=== PATIENT | male | born 1945 | race Caucasian/White ===

== ENCOUNTER 2017-08-24 20:26 | Emergency (ER) | payer MEDICARE, OTHER ==
[2017-08-24] MEDS ORDERED: Aspirin 81 MG Tab.Chew PO ONE (20:40)
[2017-08-24] MEDS ORDERED: Sodium Chloride 0.9% 10 ML Syringe FLUSH PRN (20:40)
[2017-08-24] MEDS ORDERED: Albuterol/Ipratropium 3.0-0.5 MG/3 ML Neb Soln NEB ONE (21:12)
--- NOTE | 2017-08-24 23:02 | EDM.PDOC ---
ED HPI GENERAL MEDICAL PROBLEM - General Chief Complaint: Chest Pain Stated Complaint: CHEST PAIN Time Seen by Provider: 08/24/17 20:35 Source of Information: Reports: Patient History Limitations: Reports: No Limitations - History of Present Illness INITIAL COMMENTS - FREE TEXT/NARRATIVE: The patient was at [employer] for a beer and he developed heaviness while he was sitting there. He has some shortness of breath with it. He says the pain is much better now. He has no fever, chills, cough, congestion, abdominal pain, nausea or vomiting. He has no CAD. He has a history of HTN. He quit smoking about 21 years ago but recently he has been smoking a few cigarettes and vaping. He did not take any aspirin before arrival. Onset: Sudden Duration: Minutes: (30) Location: Reports: Chest Quality: Reports: Other (Heaviness) Severity: Moderate (Better now) Improves with: Reports: None Worsens with: Reports: None Associated Symptoms: Reports: Chest Pain, Shortness of Breath. Denies: Cough, Fever/Chills, Headaches, Nausea/Vomiting Chest Pain Score (Numeric/FACES): 5 - Related Data Allergies Allergy/AdvReac Type Severity Reaction Status Date / Time No Known Allergies Allergy Verified 08/24/17 20:32 Home Meds: Home Meds . [Unable to Verify Home Med List] 01/22/16 [History] Past Medical History Cardiovascular History: Reports: Hypertension Neurological History: Reports: Other (See Below) Other Neuro History: traumatic brain bleed - Past Surgical History Musculoskeletal Surgical History: Reports: Other (See Below) Other Musculoskeletal Surgeries/Procedures:: neck and back surgery Social & Family History - Tobacco Use Smoking Status *Q: Current Status Unknown ED ROS GENERAL - Review of Systems Review Of Systems: See Below Constitutional: Reports: No Symptoms HEENT: Reports: No Symptoms Respiratory: Reports: Shortness of Breath Cardiovascular: Reports: Chest Pain Endocrine: Reports: No Symptoms GI/Abdominal: Reports: No Symptoms : Reports: No Symptoms Musculoskeletal: Reports: No Symptoms ED EXAM, GENERAL - Physical Exam Exam: See Below Exam Limited By: No Limitations General Appearance: Alert, No Apparent Distress Ears: Normal External Exam Nose: Normal Inspection Head: Atraumatic, Normocephalic Neck: Normal Inspection Respiratory/Chest: No Respiratory Distress, Wheezing (Moderate) Cardiovascular: Regular Rate, Rhythm, No Edema, No Murmur GI/Abdominal: Soft, Non-Tender, No Organomegaly, No Mass Back Exam: Normal Inspection Extremities: Normal Inspection Neurological: Alert, Oriented, No Motor/Sensory Deficits Skin Exam: Warm EKG INTERPRETATION EKG Date: 08/24/17 Time: 20:32 Rhythm: NSR Rate (Beats/Min): 94 [place]: Normal P-Wave: Present QRS: Normal ST-T: Normal QT: Normal EKG Interpretation Comments: Q waves in the inferior leads Course - Vital Signs Last Recorded V/S: Last Vital Signs Temp 98.0 F 08/24/17 20:32 Pulse 80 08/24/17 21:33 Resp 20 08/24/17 20:32 BP 186/93 H 08/24/17 20:32 Pulse Ox 98 08/24/17 20:32 - Orders/Labs/Meds Orders: Active Orders 24 hr Category Date Time Status Cardiac Monitoring [RC] . DIRECTED Care 08/24/17 20:40 Active EKG Documentation Completion [RC] ASDIRECTED Care 08/24/17 23:07 Active EKG Documentation Completion [RC] STAT Care 08/24/17 20:40 Active Oxygen Therapy [RC] PRN Care 08/24/17 20:40 Active Peripheral IV Care [RC] . DIRECTED Care 08/24/17 20:40 Active RT Aerosol Therapy [RC] ASDIRECTED Care 08/24/17 21:12 Active Chest 1V Frontal [CR] Stat Exams 08/24/17 20:40 Taken Sodium Chloride 0.9% [Saline Flush] Med 08/24/17 20:40 Active 10 ml FLUSH ASDIRECTED PRN Peripheral IV Insertion Adult [OM.PC] Stat Oth 08/24/17 20:40 Ordered EKG 12 Lead [EK] Stat Ther 08/24/17 23:07 Ordered Medication Orders Sodium Chloride (Saline Flush) 10 ml FLUSH ASDIRECTED PRN PRN Reason: Keep Vein Open Last Admin: 08/24/17 20:47 Dose: 10 ml Labs: Laboratory Tests 08/24/17 08/24/17 08/24/17 Range/Units 20:32 20:32 20:32 WBC 6.79 (4.23-9.07) K/mm3 RBC 4.45 L (4.63-6.08) M/mm3 Hgb 12.8 L (13.7-17.5) gm/L Hct 39.5 L (40.1-51.0) % MCV 88.8 (79.0-92.2) fl MCH 28.8 (25.7-32.2) pg MCHC 32.4 (32.2-35.5) g/dl RDW Std Deviation 49.8 H (35.1-43.9) fL Plt Count 192 (163-337) K/mm3 MPV 11.8 (9.4-12.3) fl Neut % (Auto) 69.1 H (34.0-67.9) % Lymph % (Auto) 20.0 L (21.8-53.1) % [place] % (Auto) 9.0 (5.3-12.2) % Eos % (Auto) 1.2 (0.8-7.0) Baso % (Auto) 0.6 (0.1-1.2) % Neut # (Auto) 4.69 (1.78-5.38) K/mm3 Lymph # (Auto) 1.36 (1.32-3.57) K/mm3 [place] # (Auto) 0.61 (0.30-0.82) K/mm3 Eos # (Auto) 0.08 (0.04-0.54) K/mm3 Baso # (Auto) 0.04 (0.01-0.08) K/mm3 D-Dimer, Quantitative 0.39 (0.19-0.59) mg/L Sodium 146 H (136-145) mEq/L Potassium 3.2 L (3.5-5.1) mEq/L Chloride 110 H (98-107) mEq/L Carbon Dioxide 23 (21-32) mEq/L Anion Gap 16.2 H (5-15) BUN 19 H (7-18) mg/dL Creatinine 1.4 H (0.7-1.3) mg/dL Est Cr Clr Drug Dosing 46.99 mL/min Estimated GFR (MDRD) 50 (>60) mL/min BUN/Creatinine Ratio 13.6 L (14-18) Glucose 143 H (83-115) mg/dL Calcium 8.7 (8.5-10.1) mg/dL Total Bilirubin 0.5 (0.2-1.0) mg/dL AST 17 (15-37) U/L ALT 20 (16-63) U/L Alkaline Phosphatase 72 (46-116) U/L Troponin I < 0.017 (0.00-0.056) ng/mL Total Protein 7.0 (6.4-8.2) g/dl Albumin 3.5 (3.4-5.0) g/dl Globulin 3.5 gm/dL Albumin/Globulin Ratio 1.0 (1-2) 08/24/17 Range/Units 23:18 WBC (4.23-9.07) K/mm3 RBC (4.63-6.08) M/mm3 Hgb (13.7-17.5) gm/L Hct (40.1-51.0) % MCV (79.0-92.2) fl MCH (25.7-32.2) pg MCHC (32.2-35.5) g/dl RDW Std Deviation (35.1-43.9) fL Plt Count (163-337) K/mm3 MPV (9.4-12.3) fl Neut % (Auto) (34.0-67.9) % Lymph % (Auto) (21.8-53.1) % [place] % (Auto) (5.3-12.2) % Eos % (Auto) (0.8-7.0) Baso % (Auto) (0.1-1.2) % Neut # (Auto) (1.78-5.38) K/mm3 Lymph # (Auto) (1.32-3.57) K/mm3 [place] # (Auto) (0.30-0.82) K/mm3 Eos # (Auto) (0.04-0.54) K/mm3 Baso # (Auto) (0.01-0.08) K/mm3 D-Dimer, Quantitative (0.19-0.59) mg/L Sodium (136-145) mEq/L Potassium (3.5-5.1) mEq/L Chloride (98-107) mEq/L Carbon Dioxide (21-32) mEq/L Anion Gap (5-15) BUN (7-18) mg/dL Creatinine (0.7-1.3) mg/dL Est Cr Clr Drug Dosing mL/min Estimated GFR (MDRD) (>60) mL/min BUN/Creatinine Ratio (14-18) Glucose (83-115) mg/dL Calcium (8.5-10.1) mg/dL Total Bilirubin (0.2-1.0) mg/dL AST (15-37) U/L ALT (16-63) U/L Alkaline Phosphatase (46-116) U/L Troponin I < 0.017 (0.00-0.056) ng/mL Total Protein (6.4-8.2) g/dl Albumin (3.4-5.0) g/dl Globulin gm/dL Albumin/Globulin Ratio (1-2) Meds: Medications Generic Name Dose Route Start Last Admin Trade Name Freq PRN Reason Stop Dose Admin Sodium Chloride 10 ml 08/24/17 20:40 08/24/17 20:47 Saline Flush FLUSH 10 ml ASDIRECTED PRN Administration Keep Vein Open Discontinued Medications Generic Name Dose Route Start Last Admin Trade Name Freq PRN Reason Stop Dose Admin Albuterol/Ipratropium 3 ml 08/24/17 21:12 08/24/17 21:33 Duoneb 3.0-0.5 Mg/3 Ml NEB 08/24/17 21:13 3 ml ONETIME ONE Administration Aspirin 324 mg 08/24/17 20:40 08/24/17 20:46 Aspirin PO 08/24/17 20:41 324 mg ONETIME ONE Administration - Re-Assessments/Exams Free Text/Narrative Re-Assessment/Exam: 08/24/17 23:04 I ordered an IV saline lock, EKG, CXR, labs and aspirin. His EKG shows a NSR with Q waves in the inferior leads. His CBC and CMP look good. His troponin is negative. He had some wheezing so I ordered a duoneb and that helped. I will repeat and EKG and troponin. 08/24/17 23:50 His repeat EKG looks good and his repeat troponin was negative. Departure - Departure Time of Disposition: 23:50 Disposition: Home, Self-Care 01 Condition: Good Clinical Impression: Atypical chest pain Referrals: Eloy Boswell Jr, MD [Primary Care Provider] - 1 Week Forms: ED Department Discharge Additional Instructions: Try to stop smoking. Follow up with Dr Boswell in 1 week. Please return if you are worse. - My Orders Last 24 Hours: My Active Orders 08/24/17 20:40 Cardiac Monitoring [RC] . DIRECTED EKG Documentation Completion [RC] STAT Oxygen Therapy [RC] PRN Peripheral IV Care [RC] . DIRECTED Chest 1V Frontal [CR] Stat Sodium Chloride 0.9% [Saline Flush] 10 ml FLUSH ASDIRECTED PRN Peripheral IV Insertion Adult [OM.PC] Stat 08/24/17 21:12 RT Aerosol Therapy [RC] ASDIRECTED 08/24/17 23:07 EKG Documentation Completion [RC] ASDIRECTED EKG 12 Lead [EK] Stat - Assessment/Plan Last 24 Hours: My Active Orders 08/24/17 20:40 Cardiac Monitoring [RC] . DIRECTED EKG Documentation Completion [RC] STAT Oxygen Therapy [RC] PRN Peripheral IV Care [RC] . DIRECTED Chest 1V Frontal [CR] Stat Sodium Chloride 0.9% [Saline Flush] 10 ml FLUSH ASDIRECTED PRN Peripheral IV Insertion Adult [OM.PC] Stat 08/24/17 21:12 RT Aerosol Therapy [RC] ASDIRECTED 08/24/17 23:07 EKG Documentation Completion [RC] ASDIRECTED EKG 12 Lead [EK] Stat
--- NOTE | 2017-08-25 07:25 | CR ---
Chest: Portable view of the chest was obtained. Comparison: No prior chest x-ray. Heart size at the upper limits of normal. Tortuous thoracic aorta is seen. Elevated right hemidiaphragm is seen which is most likely chronic. Lungs are clear with nothing acute being seen. Previous cervical spine surgery is noted. Impression: 1. Incidental findings. Nothing acute is identified. Diagnostic code #2
== END 2017-08-25 | disposition home or self-care (01) ==
LOC: JD.ED 20:26
DX: R07.89 Other chest pain (principal); I10 Essential (primary) hypertension
CPT/HCPCS: 36415; 71045; 80053; 84484; 85025; 85379; 93005; 94640; 99285; A9270; J7050; 93010; 99284-25

== ENCOUNTER 2019-07-22 15:31 | Emergency (ER) | payer MEDICARE, OTHER ==
--- NOTE | 2019-07-22 15:53 | EDM.PDOC ---
ED HPI GENERAL MEDICAL PROBLEM - General Chief Complaint: Genitourinary Problem Stated Complaint: UNABLE TO URINATE Time Seen by Provider: 07/22/19 15:41 Source of Information: Reports: Patient History Limitations: Reports: No Limitations - History of Present Illness INITIAL COMMENTS - FREE TEXT/NARRATIVE: Mr. Juarez is a very pleasant 74-year-old man with past medical history significant for hypertension and BPH, who states that he was on Flomax, but that it did not seem to be doing much, therefore it was discontinued his PCP 1 to 2 years ago. The patient then underwent an L5-L7 fusion in [place] this past 07/17/2019. He states that he had urinary retention following surgery, and was catheterized once before he was discharged home on Wednesday, . Because of his new urinary retention, his Flomax was restarted while he was in the hospital, and he was given a prescription that he picked up and started yesterday; he likely did not take any Flomax on , 07/20/2019. The patient now presents to the ED stating that he has had considerable difficulty urinating ever since he was discharged from the hospital. He has lower abdominal/suprapubic pressure. No recent fever, nausea, vomiting, constipation, diarrhea, or flank pain. The patient's PCP is Dr. Eloy Boswell. He has an appointment to see Dr. Boswell this coming 07/26/2019. His Neurosurgeon is Dr. Jg Toledo, in [place], [place]. The patient did not receive an influenza vaccine this season, but is willing to receive one here today. Bladder Pain Score (Numeric/FACES): 9 - Related Data Allergies Allergy/AdvReac Type Severity Reaction Status Date / Time No Known Allergies Allergy Verified 07/22/19 15:47 Home Meds: Home Meds . 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 gastric bypass, 2011) - Past Surgical History HEENT Surgical History: Reports: Eye Surgery (bilateral lower eyelid lift) GI Surgical History: Reports: Appendectomy, Bariatric Procedure (gastric bypass 08/17/2011) Neurological Surgical History: Reports: C-Spine (ACDF), Lumbar Spine ( Laminectomy, followed by L5-L7 fusion 07/17/2019) Social & Family History - Tobacco Use Smoking Status *Q: Current Every Day Smoker Years of Tobacco use: 62 Packs/Tins Daily: 0.5 Packs/Tins Daily Comment: Down from 4 ppd - Alcohol Use Alcohol Use History: Yes Alcohol Use Frequency: Rarely - Recreational Drug Use Recreational Drug Use: No - Living Situation & Occupation Living situation: Reports: , with Spouse Occupation: Unemployed ED ROS GENERAL - Review of Systems Review Of Systems: Comprehensive ROS is negative, except as noted in HPI. ED EXAM, RENAL/ - Physical Exam Exam: See Below Exam Limited By: No Limitations General Appearance: Alert, WD/WN, No Apparent Distress Eye Exam: Bilateral Eye: EOMI, Normal Inspection Ears: Normal External Exam, Hearing Grossly Normal Nose: Normal Inspection Throat/Mouth: Normal Inspection, Normal Lips, Normal Teeth, Normal Gums, Normal Oropharynx, Normal Voice, No Airway Compromise Head: Atraumatic, Normocephalic Neck: Normal Inspection, Full Range of Motion Respiratory/Chest: No Respiratory Distress, Lungs Clear, Normal Breath Sounds, No Accessory Muscle Use Cardiovascular: Normal Peripheral Pulses, Regular Rate, Rhythm, No Edema, No Gallop, No JVD, No Murmur, No Rub GI/Abdominal: Normal Bowel Sounds, Soft, Non-Tender (abdomen examined after Ramos had been placed), No Organomegaly, No Distention, No Abnormal Bruit, No Mass (Male) Exam: Deferred Rectal (Males) Exam: Deferred Extremities: Normal Inspection, Normal Range of Motion, Normal Capillary Refill , Other (Bilateral thigh-high TEDS hose on) Neurological: Alert, Oriented, Normal Cognition, No Motor/Sensory Deficits Psychiatric: Normal Affect Skin Exam: Warm, Dry, Intact, Normal Color, No Rash Course - Vital Signs Last Recorded V/S: Last Vital Signs Temp 36.7 C 07/22/19 15:47 Pulse 80 07/22/19 15:47 Resp 20 07/22/19 15:47 BP 197/101 H 07/22/19 15:47 Pulse Ox 96 07/22/19 15:47 - Orders/Labs/Meds Orders: Active Orders 24 hr Category Date Time Status Bladder Scan [RC] ASDIRECTED Care 07/22/19 15:52 Active Influenza Vaccine Charge [RC] .DISCHARGE Care 07/22/19 16:07 Active Insert Ramos Catheter [Insert Urinary Catheter] [OM.PC] Care 07/22/19 16:00 Ordered Q24H Urinary Catheter Assessment [RC] ASDIRECTED Care 07/22/19 15:53 Active Labs: Laboratory Tests 07/22/19 Range/Units 16:02 Urine Color Yellow (Yellow) Urine Appearance Slt cloudy H (Clear) Urine pH 6.0 (5.0-8.0) Ur Specific [place] 1.025 (1.005-1.030) Urine Protein Trace H (Negative) Urine Glucose (UA) Negative (Negative) Urine Ketones Negative (Negative) Urine Occult Blood 3+ H (Negative) Urine Nitrite Negative (Negative) Urine Bilirubin Negative (Negative) Urine Urobilinogen 4.0 H (0.2-1.0) Ur Leukocyte Esterase Negative (Negative) Urine RBC 50-75 H (0-5) /hpf Urine WBC 0-5 (0-5) /hpf Ur Squamous Epith Cells 0-5 (0-5) /hpf Urine Bacteria Not seen (FEW) /hpf Urine Mucus Not seen (FEW) /hpf Meds: Medications Discontinued Medications Generic Name Dose Route Start Last Admin Trade Name Teddyq PRN Reason Stop Dose Admin Influenza Virus Vaccine 1 each 07/22/19 16:07 Pharmacy To Dose - Influenza Vaccine IM 07/22/19 16:08 ONETIME ONE Influenza Virus Vaccine 180 mcg 07/22/19 16:15 Fluzone High-Dose Syringe IM 07/22/19 16:16 .ONCE ONE - Re-Assessments/Exams Free Text/Narrative Re-Assessment/Exam: 07/22/19 15:53 Notified by Gladis GRAF that the bladder scan found about 1400 mL of urine. I have ordered a Ramos catheter to be placed. 07/22/19 16:06 The Ramos catheter is draining nicely. I will order a urinalysis, just to make sure that he does not have a UTI. 07/22/19 16:37 The patient's urinalysis shows some blood, but no suggestion of a UTI. The blood may have come from when he was catheterized in [place], or from the stretch of his bladder, or from today's catheterization. I will discharge him home with a Ramos catheter to a leg bag. He can up with his PCP at his previously scheduled appointment this coming 07/26/2019, or earlier, if possible. He should continue to take his previously prescribed Flomax. The patient will receive an influenza vaccine prior to discharge. Departure - Departure Time of Disposition: 16:38 Disposition: Home, Self-Care 01 Condition: Good Clinical Impression: Urinary (tract) obstruction, BPH (benign prostatic hyperplasia) - Discharge Information *PRESCRIPTION DRUG MONITORING PROGRAM REVIEWED*: Not Applicable *COPY OF PRESCRIPTION DRUG MONITORING REPORT IN PATIENT CHITO: Not Applicable Instructions: Urinary Tract Infection, Adult Referrals: Eloy Boswell Jr, MD [Primary Care Provider] - Jg Toledo MD [Ordering Only Provider] - Forms: ED Department Discharge Additional Instructions: You were seen in the emergency room after being unable to urinate following lower back surgery on 07/17/2019. Work-up in the ER included a bladder scan, which found 1400 mL of urine in your bladder. A Ramos catheter was placed. A urinalysis showed some blood in your urine, but no suggestion of urinary tract infection. You should continue to take the Flomax that was prescribed to you in [place]. Maintain the Ramos catheter and drained the leg bag as instructed by your nurse. When you sleep, make sure that the bag is lower than your body height, to prevent urine from back-flowing into your bladder. Follow-up with your PCP, Dr. Eloy Boswell, at your previously scheduled appointment this coming 07/26/2019, or earlier, if possible. If any other problems, please do not hesitate to return to the ER. *You received an influenza vaccine during your ER visit.* Sepsis Event Note - Evaluation Sepsis Screening Result: No Definite Risk - Focused Exam Vital Signs: Vital Signs Temp Pulse Resp BP Pulse Ox 07/22/19 15:47 36.7 C 80 20 197/101 H 96 Date Exam was Performed: 07/22/19 Time Exam was Performed: 16:43 - My Orders Last 24 Hours: My Active Orders 07/22/19 15:52 Bladder Scan [RC] ASDIRECTED 07/22/19 15:53 Urinary Catheter Assessment [RC] ASDIRECTED 07/22/19 16:00 Insert Ramos Catheter [Insert Urinary Catheter] [OM.PC] Q24H 07/22/19 16:07 Influenza Vaccine Charge [RC] .DISCHARGE - Assessment/Plan Last 24 Hours: My Active Orders 07/22/19 15:52 Bladder Scan [RC] ASDIRECTED 07/22/19 15:53 Urinary Catheter Assessment [RC] ASDIRECTED 07/22/19 16:00 Insert Ramos Catheter [Insert Urinary Catheter] [OM.PC] Q24H 07/22/19 16:07 Influenza Vaccine Charge [RC] .DISCHARGE
== END 2019-07-22 17:11 | disposition home or self-care (01) ==
LOC: JD.ED 15:31
DX: N40.1 Benign prostatic hyperplasia with lower urinary tract symptoms (principal); N13.8 Other obstructive and reflux uropathy; I10 Essential (primary) hypertension; E11.9 Type 2 diabetes mellitus without complications; F17.210 Nicotine dependence, cigarettes, uncomplicated; Z90.49 Acquired absence of other specified parts of digestive tract; Z98.84 Bariatric surgery status
CPT/HCPCS: 51702; 51798; 81001; 90662; 99283; G0008

== ENCOUNTER 2019-07-28 08:12 | Emergency (ER) | payer MEDICARE, OTHER ==
[2019-07-28] MEDS ORDERED: Lidocaine 2% Jelly 10 ML Urojet MUCMEM ONE (09:24)
[2019-07-28] MEDS ORDERED: Lidocaine 2% Jelly 10 ML Urojet ONE (09:26)
--- NOTE | 2019-07-28 10:34 | EDM.PDOC ---
ED HPI GENERAL MEDICAL PROBLEM - General Chief Complaint: Genitourinary Problem Stated Complaint: NEEDS A CATH-SENT BY [facility] Time Seen by Provider: 07/28/19 08:19 Source of Information: Reports: Patient, Provider History Limitations: Reports: No Limitations - History of Present Illness INITIAL COMMENTS - FREE TEXT/NARRATIVE: The patient presents because he cannot urinate. He had back surgery down in [place] on 07/17/2019. He had trouble urinating and was cathed in the hospital. He had it removed on the and he was discharged. He came back her and had trouble urinating until the he could not go anymore and was seen here and a reinoso catheter was placed. He had that catheter our a few days ago and he went to Dr Boswell's office because he could not urinate. His nurse attempted a reinoso cath and there was clots and no urine flow. He was sent up here for help. He has moderate to severe pain in his lower abdomen. He has no nausea, vomiting or diarrhea. Onset: Gradual Duration: Day(s): Location: Reports: Abdomen Quality: Reports: Sharp Severity: Severe Improves with: Reports: None Worsens with: Reports: None Associated Symptoms: Reports: No Other Symptoms Bladder Pain Score (Numeric/FACES): 7 - Related Data Allergies Allergy/AdvReac Type Severity Reaction Status Date / Time No Known Allergies Allergy Verified 07/22/19 15:47 Home Meds: Home Meds Ciprofloxacin [Ciprofloxacin HCl] 500 mg PO BID 07/28/19 [History] Hydrocodone/Acetaminophen [Hydrocodon-Acetaminophen 5-325] 2 tab PO Q8H PRN [History] Tamsulosin [Flomax] 0.4 mg PO DAILY 07/28/19 [History] Past Medical History Cardiovascular History: Reports: Hypertension Genitourinary History: Reports: BPH Musculoskeletal History: Reports: Fracture Neurological History: Reports: Head Trauma Other Neuro History: traumatic brain bleed Endocrine/Metabolic History: Reports: Diabetes, Type II - Past Surgical History HEENT Surgical History: Reports: Eye Surgery GI Surgical History: Reports: Appendectomy, Bariatric Procedure Neurological Surgical History: Reports: C-Spine, Lumbar Spine Social & Family History - Tobacco Use Smoking Status *Q: Current Every Day Smoker Years of Tobacco use: 65 Packs/Tins Daily: 0.5 - Living Situation & Occupation Living situation: Reports: , with Spouse Occupation: Unemployed ED ROS GENERAL - Review of Systems Review Of Systems: See Below Constitutional: Reports: No Symptoms HEENT: Reports: No Symptoms Respiratory: Reports: No Symptoms Cardiovascular: Reports: No Symptoms Endocrine: Reports: No Symptoms GI/Abdominal: Reports: Abdominal Pain. Denies: Nausea, Vomiting : Reports: Other (retention) ED EXAM, RENAL/ - Physical Exam Exam: See Below Exam Limited By: No Limitations General Appearance: Alert, No Apparent Distress Ears: Normal External Exam Nose: Normal Inspection Head: Atraumatic, Normocephalic Neck: Normal Inspection Respiratory/Chest: No Respiratory Distress, Lungs Clear, Normal Breath Sounds Cardiovascular: Regular Rate, Rhythm, No Edema, No Murmur GI/Abdominal: Soft, Distended (lower abdomen), Tender (severe tenderness to the lower abdomen) Course - Vital Signs Last Recorded V/S: Last Vital Signs Temp 97.5 F 07/28/19 08:25 Pulse 94 07/28/19 08:25 Resp 16 07/28/19 08:25 BP 186/98 H 07/28/19 08:25 Pulse Ox 94 L 07/28/19 08:25 - Orders/Labs/Meds Orders: Active Orders 24 hr Category Date Time Status CBC WITH AUTO DIFF [HEME] Stat Lab 07/28/19 11:09 Results Labs: Laboratory Tests 07/28/19 07/28/19 Range/Units 11:09 11:09 WBC 10.07 H (4.23-9.07) K/mm3 RBC 4.17 L (4.63-6.08) M/mm3 Hgb 12.3 L (13.7-17.5) gm/dl Hct 38.0 L (40.1-51.0) % MCV 91.1 (79.0-92.2) fl MCH 29.5 (25.7-32.2) pg MCHC 32.4 (32.2-35.5) g/dl RDW Std Deviation 46.0 H (35.1-43.9) fL Plt Count 238 (163-337) K/mm3 MPV 10.4 (9.4-12.3) fl Neut % (Auto) 82.8 H (34.0-67.9) % Lymph % (Auto) 9.0 L (21.8-53.1) % [place] % (Auto) 7.1 (5.3-12.2) % Eos % (Auto) 0.7 L (0.8-7.0) Baso % (Auto) 0.2 (0.1-1.2) % Neut # (Auto) 8.34 H (1.78-5.38) K/mm3 Lymph # (Auto) 0.91 L (1.32-3.57) K/mm3 [place] # (Auto) 0.71 (0.30-0.82) K/mm3 Eos # (Auto) 0.07 (0.04-0.54) K/mm3 Baso # (Auto) 0.02 (0.01-0.08) K/mm3 PT 10.5 (9.7-12.0) SECONDS INR 0.96 APTT 28 (22-31) SECONDS Meds: Medications Discontinued Medications Generic Name Dose Route Start Last Admin Trade Name [place]ade PRN Reason Stop Dose Admin Lidocaine HCl 10 ml 07/28/19 09:24 07/28/19 09:27 Xylocaine 2% Jelly MUCMEM 07/28/19 09:25 10 ml ONETIME ONE Administration Lidocaine HCl Confirm 07/28/19 09:26 Xylocaine 2% Jelly Administered 07/28/19 09:27 Dose 10 ml .ROUTE .STK-MED ONE - Re-Assessments/Exams Free Text/Narrative Re-Assessment/Exam: 07/28/19 10:44 My nurse was able to pass a reinoso cath but she had no urine come back or blood even with irrigation. She put in a 3 way and a few large clots came and lots of urine almost 2Ls. It was bloody and there were some clots. We are irrigating now. 07/28/19 11:40 My nurse clamped the reinoso and I will get him a leg beg and I will have him follow up with urology. Departure - Departure Time of Disposition: 11:50 Disposition: Home, Self-Care 01 Condition: Good Clinical Impression: Urinary retention Hematuria Qualifiers: Hematuria type: gross Qualified Code(s): R31.0 - Gross hematuria - Discharge Information *PRESCRIPTION DRUG MONITORING PROGRAM REVIEWED*: Not Applicable *COPY OF PRESCRIPTION DRUG MONITORING REPORT IN PATIENT CHITO: Not Applicable Referrals: Eloy Boswell Jr, MD [Primary Care Provider] - 1 Week Forms: ED Department Discharge Additional Instructions: Keep the reinoso cath in until you see urology. I left a message with Dr Boswell and he should be getting you in to see urology. If you have not heard back by this afternoon call his office or . Please return if you are worse. Sepsis Event Note - Evaluation Sepsis Screening Result: No Definite Risk - Focused Exam Vital Signs: Vital Signs Temp Pulse Resp BP Pulse Ox 07/28/19 08:25 97.5 F 94 16 186/98 H 94 L Date Exam was Performed: 07/28/19 Time Exam was Performed: 11:40 - My Orders Last 24 Hours: My Active Orders 07/28/19 11:09 CBC WITH AUTO DIFF [HEME] Stat - Assessment/Plan Last 24 Hours: My Active Orders 07/28/19 11:09 CBC WITH AUTO DIFF [HEME] Stat
== END 2019-07-28 12:23 | disposition home or self-care (01) ==
LOC: JD.ED 08:12
DX: R33.9 Retention of urine, unspecified (principal); R31.9 Hematuria, unspecified; N40.0 Benign prostatic hyperplasia without lower urinary tract symptoms; I10 Essential (primary) hypertension; F17.210 Nicotine dependence, cigarettes, uncomplicated; Z79.899 Other long term (current) drug therapy
CPT/HCPCS: 36415; 51700; 85025; 85610; 85730; 99282; 99283-25

== ENCOUNTER 2019-08-02 09:26 | Emergency (ER) | payer MEDICARE ==
--- NOTE | 2019-08-02 11:11 | EDM.PDOC ---
ED HPI GENERAL MEDICAL PROBLEM - General Chief Complaint: Genitourinary Problem Stated Complaint: CATHETER ISSUES Time Seen by Provider: 08/02/19 09:54 Source of Information: Reports: Patient, RN Notes Reviewed - History of Present Illness INITIAL COMMENTS - FREE TEXT/NARRATIVE: 74-year-old male comes in with urinary retention. He had low back surgery about 2-1/2 weeks ago and has had difficulty voiding since that time. He had a simple Ramos catheter initially and that blocked a time or 2 so now he does have a three-way catheter. That has been in place for about the past 5 days, had been working well until decreased flow and drainage during the night. He is feeling moderate bladder discomfort at this time and states there was hardly any urine output during the night. He states that the urine in the bag did look somewhat "bloody last evening. No fever chills nausea or vomiting. Does have a Urology appointment in about 2 weeks. - Related Data Allergies Allergy/AdvReac Type Severity Reaction Status Date / Time No Known Allergies Allergy Verified 08/02/19 09:49 Home Meds: Home Meds Ciprofloxacin [Ciprofloxacin HCl] 500 mg PO BID 07/28/19 [History] Hydrocodone/Acetaminophen [Hydrocodon-Acetaminophen 5-325] 2 tab PO Q8H PRN [History] Tamsulosin [Flomax] 0.4 mg PO DAILY 07/28/19 [History] Past Medical History Cardiovascular History: Reports: Hypertension Genitourinary History: Reports: BPH Musculoskeletal History: Reports: Fracture Neurological History: Reports: Head Trauma Other Neuro History: traumatic brain bleed Endocrine/Metabolic History: Reports: Diabetes, Type II - Past Surgical History HEENT Surgical History: Reports: Eye Surgery GI Surgical History: Reports: Appendectomy, Bariatric Procedure Neurological Surgical History: Reports: C-Spine, Lumbar Spine Social & Family History - Tobacco Use Smoking Status *Q: Current Every Day Smoker Years of Tobacco use: 40 Packs/Tins Daily: 0.5 - Caffeine Use Caffeine Use: Reports: Energy Drinks - Recreational Drug Use Recreational Drug Use: No - Living Situation & Occupation Living situation: Reports: , with Spouse Occupation: Unemployed ED ROS GENERAL - Review of Systems Review Of Systems: See Below Constitutional: Denies: Fever, Chills, Diaphoresis HEENT: Reports: No Symptoms Respiratory: Denies: Shortness of Breath Cardiovascular: Denies: Chest Pain GI/Abdominal: Reports: Abdominal Pain (Mild lower abdominal and bladder discomfort). Denies: Nausea, Vomiting : Reports: Hematuria (Last evening), Other (Urinary retention) Musculoskeletal: Reports: No Symptoms Skin: Reports: No Symptoms Neurological: Reports: No Symptoms ED EXAM, RENAL/ - Physical Exam Exam: See Below General Appearance: Alert, No Apparent Distress Throat/Mouth: Normal Inspection Neck: Supple Respiratory/Chest: No Respiratory Distress, Lungs Clear Cardiovascular: Regular Rate, Rhythm GI/Abdominal: Soft, Non-Tender, Other (Mild lower abdominal distention). No: Guarding Back Exam: No: CVA Tenderness (L), CVA Tenderness (R) Extremities: Other (There is swelling of the right lower leg that has been chronic). No: Increased Warmth, Redness Neurological: Alert, Oriented, No Motor/Sensory Deficits Skin Exam: Warm, Dry Course - Vital Signs Last Recorded V/S: Last Vital Signs Temp 98.9 F 08/02/19 09:45 Pulse 100 08/02/19 09:45 Resp 18 08/02/19 09:45 BP 137/76 08/02/19 09:45 Pulse Ox 94 L 08/02/19 09:45 - Orders/Labs/Meds Orders: Active Orders 24 hr Category Date Time Status Bladder Irrigation [RC] INTERMITTENT Care 08/02/19 10:27 Active Bladder Scan [RC] ASDIRECTED Care 08/02/19 10:27 Active - Re-Assessments/Exams Free Text/Narrative Re-Assessment/Exam: 08/02/19 11:19 Bladder scan showed that he was retaining about 700 mL of urine. Catheter was irrigated by his nurse and has drained out most if not all of that. Patient feels much better. Discharge instructions as documented. Urine in the bag is dark yellow, he did have a couple of small clots that flushed out. Departure - Departure Time of Disposition: 11:10 Disposition: Home, Self-Care 01 Condition: Fair Clinical Impression: Urinary retention - Discharge Information Referrals: Eloy Boswell Jr, MD [Primary Care Provider] - Forms: ED Department Discharge Additional Instructions: drink plenty of water to maintain hydration, continue with catheter care as previously instructed. See Urology as planned, return to ED as needed. Sepsis Event Note - Evaluation Sepsis Screening Result: No Definite Risk - Focused Exam Vital Signs: Vital Signs Temp Pulse Resp BP Pulse Ox 08/02/19 09:45 98.9 F 100 18 137/76 94 L Date Exam was Performed: 08/02/19 Time Exam was Performed: 11:15 - My Orders Last 24 Hours: My Active Orders 08/02/19 10:27 Bladder Irrigation [RC] INTERMITTENT Bladder Scan [RC] ASDIRECTED - Assessment/Plan Last 24 Hours: My Active Orders 08/02/19 10:27 Bladder Irrigation [RC] INTERMITTENT Bladder Scan [RC] ASDIRECTED
== END 2019-08-02 11:25 | disposition home or self-care (01) ==
LOC: JD.ED 09:26
DX: R33.9 Retention of urine, unspecified (principal); I10 Essential (primary) hypertension; E11.9 Type 2 diabetes mellitus without complications; N40.0 Benign prostatic hyperplasia without lower urinary tract symptoms; F17.210 Nicotine dependence, cigarettes, uncomplicated; Z79.899 Other long term (current) drug therapy
CPT/HCPCS: 51700; 51798; 99282; 99283-25

== ENCOUNTER 2019-08-09 12:54 | Emergency (ER) | payer MEDICARE, OTHER ==
--- NOTE | 2019-08-09 13:46 | EDM.PDOC ---
ED HPI GENERAL MEDICAL PROBLEM - General Chief Complaint: General Stated Complaint: RT LEG SWOLLEN POSSIBLE BLOOD CLOT Time Seen by Provider: 08/09/19 13:09 Source of Information: Reports: Patient History Limitations: Reports: No Limitations - History of Present Illness INITIAL COMMENTS - FREE TEXT/NARRATIVE: Patient is a 74-year-old male the past medical history of BPH and hypertension who presents with complaints of edema to his right lower leg as well as pain and redness to the tip of his penis and right upper thigh related to the Ramos catheter that he had currently has. Patient had spinal surgery in [place] on 07/17/2019. After surgery he had some difficulty urinating. He was discharged on 07/19/2019 without a catheter and a prescription for Flomax. On 05/2028 he came to the ER as he was not able to void. Since that time he has had a chronic indwelling Ramos. There have been a couple attempts to remove the Ramos, however each time he is unable to void and the Ramos is reinserted. He has an appointment scheduled with urology in [place] next week. Patient notes that the tip of his penis is painful and that there is a whitish discharge from the area. He states that he has been on antibiotics since the catheter was inserted, however he is not sure which antibiotic it was. This was prescribed by his primary care provider Dr. Boswell. With regard to patient's right lower extremity edema, patient states that prior to surgery he did have some swelling of the right lower extremity, however it improved significantly after the surgery. Over the last couple weeks the swelling has been getting progressively worse. He states that he spoke with Dr. Boswell's nurse and she recommended that he come here to be checked for a blood clot. Of note this is the leg that he has had the elastic straps holding his leg bag on. He denies any pain stated with the edema. He has no history of blood clots. He is not currently on any blood thinners. He has no shortness of breath or pain in his chest. - Related Data Allergies Allergy/AdvReac Type Severity Reaction Status Date / Time No Known Allergies Allergy Verified 08/09/19 13:10 Home Meds: Home Meds Tamsulosin [Flomax] 0.4 mg PO DAILY 07/28/19 [History] Aspirin 81 mg PO DAILY 08/09/19 [History] Docusate Sodium [Colace] 100 mg PO BEDTIME 08/09/19 [History] Sulfamethoxazole/Trimethoprim [Bactrim Ds Tablet] 1 each PO BID 7 Days #13 tablet 08/09/19 [Rx] Past Medical History Cardiovascular History: Reports: Hypertension Respiratory History: Reports: None Genitourinary History: Reports: BPH, Retention, Urinary Musculoskeletal History: Reports: Fracture Neurological History: Reports: Head Trauma Other Neuro History: traumatic brain bleed Psychiatric History: Reports: None Endocrine/Metabolic History: Reports: Diabetes, Type II Hematologic History: Reports: None Immunologic History: Reports: None Oncologic (Cancer) History: Reports: None Dermatologic History: Reports: None - Infectious Disease History Infectious Disease History: Reports: None - Past Surgical History HEENT Surgical History: Reports: Eye Surgery GI Surgical History: Reports: Appendectomy, Bariatric Procedure Neurological Surgical History: Reports: C-Spine, Lumbar Spine Social & Family History - Tobacco Use Smoking Status *Q: Current Every Day Smoker Years of Tobacco use: 1 Packs/Tins Daily: 1 - Caffeine Use Caffeine Use: Reports: Energy Drinks - Recreational Drug Use Recreational Drug Use: No - Living Situation & Occupation Living situation: Reports: , with Spouse Occupation: Unemployed ED ROS GENERAL - Review of Systems Review Of Systems: Comprehensive ROS is negative, except as noted in HPI. ED EXAM, GENERAL - Physical Exam Exam: See Below Exam Limited By: No Limitations General Appearance: Alert, WD/WN, No Apparent Distress Respiratory/Chest: No Respiratory Distress, Lungs Clear, Normal Breath Sounds, No Accessory Muscle Use, Chest Non-Tender Cardiovascular: Normal Peripheral Pulses, Regular Rate, Rhythm, No JVD, No Murmur, No Rub, Other (3+ pitting edema to rt lower leg. Starts directly below the knee where the patients elastic band from the urinary catheter leg bag sits and extends to the foot. Extremity is non-tender. No errythema present.) (Male) Exam: Urethral Discharge (purulent ), Other (errythema to glans ) Extremities: Pedal Edema (3+ to rt lower extremity) Neurological: Alert, Oriented, CN II-XII Intact, Normal Cognition, Normal Gait, Normal Reflexes, No Motor/Sensory Deficits Psychiatric: Normal Affect, Normal Mood Skin Exam: Warm, Dry, Intact, Normal Color, No Rash Course - Vital Signs Last Recorded V/S: Last Vital Signs Temp 98.8 F 08/09/19 13:05 Pulse 81 08/09/19 13:05 Resp 18 08/09/19 13:05 BP 171/96 H 08/09/19 13:05 Pulse Ox 96 08/09/19 13:05 - Orders/Labs/Meds Labs: Laboratory Tests 08/09/19 Range/Units 14:44 Urine Color Dark yellow (Yellow) Urine Appearance Cloudy H (Clear) Urine pH 7.0 (5.0-8.0) Ur Specific [place] 1.025 (1.005-1.030) Urine Protein 2+ H (Negative) Urine Glucose (UA) Negative (Negative) Urine Ketones Negative (Negative) Urine Occult Blood 3+ H (Negative) Urine Nitrite Negative (Negative) Urine Bilirubin 1+ H (Negative) Urine Urobilinogen 4.0 H (0.2-1.0) Ur Leukocyte Esterase 1+ H (Negative) Urine RBC 50-75 H (0-5) /hpf Urine WBC 10-20 H (0-5) /hpf Ur Squamous Epith Cells Not seen (0-5) /hpf Amorphous Sediment Few H (NOT SEEN) /hpf Urine Bacteria Moderate H (FEW) /hpf Urine Mucus Not seen (FEW) /hpf Meds: Medications Discontinued Medications Generic Name Dose Route Start Last Admin Trade Name Freq PRN Reason Stop Dose Admin Trimethoprim/Sulfamethoxazole 1 tab 08/09/19 15:25 08/09/19 15:40 Septra Ds PO 08/09/19 15:26 1 tab ONETIME ONE Administration - Re-Assessments/Exams Free Text/Narrative Re-Assessment/Exam: Them, the right lower extremity is markedly edematous. Approximately 3+ pitting edema present from the knee down. Patient does have his leg bag on this extremity and the elastic straps appear to be in the extremity. Swelling begins at about the level of the top strap and goes down towards the foot. There is no redness or tenderness to the extremity. He does have an area of excoriation and erythema to his right upper thigh where the catheter is rubbing. He also has erythema to the tip of his penis as well as a purulent discharge. I have ordered an venous Doppler of the right lower extremity. The nurses will move the anchor of the Ramos catheter to his left leg which should prevent the tube from further rubbing on the area of excoriation. I also feel the swelling may be related to the elastic bands that are holding the leg bag on his lower extremity. We will move the leg bag to the left leg to see if that improves the swelling in the right leg. 08/09/19 15:17 Doppler ultrasound of the right lower extremity was negative for any blood clots. Urinalysis was found to be cloudy with 2+ protein, 3+ occult blood, 1+ bili, 4.0 urobilinogen, 1+ leukocyte esterase, 50-75 RBCs, 10-20 WBCs, few amorphous sediment, and moderate urine bacteria. It is difficult to differentiate if this is contamination from his chronic Ramos or an actual urinary tract infection. Since he is having purulent drainage from the penis, I we will begin treatment with Bactrim DS twice daily for 7 days. We will send the urine for culture. Advised the patient to keep his appointment with his urologist next week and return if he should have any worsening symptoms. Departure - Departure Time of Disposition: 15:23 Disposition: Home, Self-Care 01 Condition: Fair Clinical Impression: Peripheral edema, UTI, Urinary tract infectious disease - Discharge Information *PRESCRIPTION DRUG MONITORING PROGRAM REVIEWED*: No *COPY OF PRESCRIPTION DRUG MONITORING REPORT IN PATIENT CHITO: No Prescriptions: Sulfamethoxazole/Trimethoprim [Bactrim Ds Tablet] 1 each PO BID 7 Days #13 tablet Instructions: Urinary Tract Infection, Adult, [id number], Sepsis, Adult Referrals: Eloy Boswell Jr, MD [Primary Care Provider] - Forms: ED Department Discharge Additional Instructions: You were seen in the emergency department today for swelling to your right lower leg as well as purulent drainage and redness at your catheter site. Ultrasound of your leg did not show any blood clots. As we discussed, it is possible that the edema in this extremity is due to the elastic bands from your Ramos catheter bag. We have moved to the anchor to your catheter as well as the leg bag to your left leg. It is recommended that she elevate your lower extremities as much as possible to help bring the swelling down. Your urine did show signs of infection. You have been started on Bactrim DS to take this twice daily for 7 days. The urine is also been sent for culture. If this should grow out any bacteria that is not susceptible to the Bactrim, you will be notified and your prescription will be changed. I recommend that you clean the tip of your penis with regular soap and water twice daily and dry thoroughly. Follow-up with the urologist this coming week as currently scheduled. If you should experience any new or worsening symptoms, please do not hesitate to return to the emergency department. Sepsis Event Note - Evaluation Sepsis Screening Result: No Definite Risk - Focused Exam Vital Signs: Vital Signs Temp Pulse Resp BP Pulse Ox 08/09/19 13:05 98.8 F 81 18 171/96 H 96 Date Exam was Performed: 08/09/19 Time Exam was Performed: 15:45
--- NOTE | 2019-08-09 14:31 | US ---
Right lower extremity deep venous ultrasound: Duplex and color Doppler evaluation was performed of the right common femoral, proximal greater saphenous, superficial femoral, popliteal, posterior tibial and peroneal veins. Left common femoral vein was also evaluated. Findings: Subcutaneous edema is noted within the right calf. Deep veins show normal phasic flow, augmentation and compression. Impression: 1. Subcutaneous edema within the right calf. 2. No evidence of deep venous thrombosis within the right lower extremity or within the left common femoral vein. Diagnostic code #2 Study was dictated in [place] Standard Time
[2019-08-09] MEDS ORDERED: Sulfamethoxazole/Trimethoprim 800-160 MG Tab PO ONE (15:25)
== END 2019-08-09 16:04 | disposition home or self-care (01) ==
LOC: JD.ED 12:54
DX: R60.0 Localized edema (principal); N39.0 Urinary tract infection, site not specified; I10 Essential (primary) hypertension; N40.0 Benign prostatic hyperplasia without lower urinary tract symptoms; E11.9 Type 2 diabetes mellitus without complications; F17.210 Nicotine dependence, cigarettes, uncomplicated; Z79.82 Long term (current) use of aspirin; Z79.899 Other long term (current) drug therapy
CPT/HCPCS: 81001; 87086; 93971; 99284; A9270

== ENCOUNTER 2020-12-28 23:05 | Emergency (ER) | payer MEDICARE, OTHER ==
--- NOTE | 2020-12-28 23:26 | EDM.PDOC ---
ED HPI GENERAL MEDICAL PROBLEM - General Chief Complaint: Respiratory Problem Stated Complaint: SOB SWELLING IN NECK Time Seen by Provider: 12/28/20 23:26 Source of Information: Reports: Patient, RN Notes Reviewed - History of Present Illness INITIAL COMMENTS - FREE TEXT/NARRATIVE: 75 yr old male had a c spine fusion anterior approach down at [facility] 2 days ago. Surgery is reported to have gone well. Discharged home yesterday. Was doing well today until he developed difficulty breathing and swallowing this evening. He does have hx of smoking, quit just before the surgery. He has dyspnea at rest, worse with walking. No fever or chills. No chest pain, occasional cough but not more than usual. - Related Data Allergies Allergy/AdvReac Type Severity Reaction Status Date / Time No Known Allergies Allergy Verified 12/28/20 23:27 Home Meds: Home Meds Tamsulosin [Flomax] 0.4 mg PO DAILY 07/28/19 [History] Aspirin 81 mg PO DAILY 08/09/19 [History] Docusate Sodium [Colace] 100 mg PO BEDTIME 08/09/19 [History] Furosemide 80 mg PO ASDIRECTED 12/29/20 [History] L. Acidophilus/L. Rhamnosus [Probiotic 15 Billion Cell Cap] 1 cap PO DAILY 12/29/20 [History] Meloxicam 7.5 mg PO DAILY 12/29/20 [History] Phytonadione [Vitamin K] 100 mcg PO DAILY 12/29/20 [History] Potassium Chloride 20 meq PO DAILY 12/29/20 [History] Pramipexole [Mirapex] 1 mg PO DAILY 12/29/20 [History] Terazosin [Hytrin] 5 mg PO DAILY 12/29/20 [History] Zolpidem [Ambien] 5 mg PO BEDTIME PRN 12/29/20 [History] allopurinoL [Zyloprim] 100 mg PO DAILY 12/29/20 [History] amLODIPine [Norvasc] 5 mg PO DAILY 12/29/20 [History] buPROPion [Wellbutrin SR] 150 mg PO DAILY 12/29/20 [History] hydroCHLOROthiazide [Hydrochlorothiazide] 25 mg PO ASDIRECTED 12/29/20 [History] metOLazone [Metolazone] 5 mg PO DAILY 12/29/20 [History] Past Medical History Cardiovascular History: Reports: Hypertension Respiratory History: Reports: None Genitourinary History: Reports: BPH, Retention, Urinary Musculoskeletal History: Reports: Fracture Neurological History: Reports: Head Trauma Other Neuro History: traumatic brain bleed Psychiatric History: Reports: None Endocrine/Metabolic History: Reports: Diabetes, Type II Hematologic History: Reports: None Immunologic History: Reports: None Oncologic (Cancer) History: Reports: None Dermatologic History: Reports: None - Infectious Disease History Infectious Disease History: Reports: None - Past Surgical History HEENT Surgical History: Reports: Eye Surgery GI Surgical History: Reports: Appendectomy, Bariatric Procedure Neurological Surgical History: Reports: C-Spine, Lumbar Spine Social & Family History - Caffeine Use Caffeine Use: Reports: Energy Drinks - Living Situation & Occupation Living situation: Reports: , with Spouse Occupation: Unemployed ED ROS GENERAL - Review of Systems Review Of Systems: See Below Constitutional: Denies: Fever, Chills, Diaphoresis HEENT: Denies: Throat Pain Respiratory: Reports: Shortness of Breath, Wheezing, Cough (occasional) Cardiovascular: Denies: Chest Pain GI/Abdominal: Denies: Abdominal Pain, Nausea, Vomiting Musculoskeletal: Reports: Other (swelling, pressure sensation ant. neck) Skin: Reports: Erythema (there is erythema above surgical incission R ant. neck) Neurological: Reports: No Symptoms ED EXAM, GENERAL - Physical Exam Exam: See Below General Appearance: Alert, Mild Distress Eye Exam: Bilateral Eye: PERRL Throat/Mouth: Normal Inspection Head: Atraumatic Neck: Other (there is moderate soft tissue swelling above incision ant neck with mild erythema, no incisional drainage, no discrete mass palpable) Respiratory/Chest: Respiratory Distress. No: No Accessory Muscle Use, Rales, Rhonchi, Wheezing Cardiovascular: Regular Rate, Rhythm GI/Abdominal: Soft, Non-Tender Extremities: Normal Inspection. No: Pedal Edema, Leg Pain, Increased Warmth, Redness Neurological: Alert, Oriented, No Motor/Sensory Deficits Skin Exam: Warm, Dry, Normal Color Course - Vital Signs Last Recorded V/S: Last Vital Signs Temp 98.8 F 12/28/20 23:16 Pulse 88 12/28/20 23:16 Resp 20 12/28/20 23:16 BP 150/77 H 12/28/20 23:16 Pulse Ox 96 12/29/20 02:47 - Orders/Labs/Meds Orders: Active Orders 24 hr Category Date Time Status Chest 1V Frontal [CR] Stat Exams 12/28/20 23:45 Taken Soft Tissue Neck w Cont [CT] Stat Exams 12/28/20 23:52 Taken Labs: Laboratory Tests 12/29/20 12/29/20 12/29/20 Range/Units 00:00 00:00 00:00 WBC 7.78 (4.23-9.07) K/mm3 RBC 3.92 L (4.63-6.08) M/mm3 Hgb 10.1 L D (13.7-17.5) gm/dl Hct 34.6 L (40.1-51.0) % MCV 88.3 (79.0-92.2) fl MCH 25.8 (25.7-32.2) pg MCHC 29.2 L (32.2-35.5) g/dl RDW Std Deviation 53.0 H (35.1-43.9) fL Plt Count 202 (163-337) K/mm3 MPV 11.3 (9.4-12.3) fl Neutrophils % (Manual) 76 H (40-60) % Band Neutrophils % 0 (0-10) % Lymphocytes % (Manual) 13 L (20-40) % Atypical Lymphs % 0 % Monocytes % (Manual) 9 (2-10) % Eosinophils % (Manual) 2 (0.8-7.0) % Basophils % (Manual) 0 L (0.2-1.2) Toxic Granulation Few Platelet Estimate Adequate Hypochromasia 2+ moderate Anisocytosis 2+ moderate Ovalocytes 3+ marked RBC Morph Comment Abnormal Puncture Site ABG pH (7.35-7.45) ABG pCO2 (35.0-45.0) mmHg ABG pO2 (80.0-100.0) mmHg ABG HCO3 (22.0-26.0) meq/L ABG O2 Saturation (96.0-97.0) % ABG Base Excess (-2-2.0) Antonio Test A-a Gradient mmHg O2 Delivery Device FiO2 (21.00-100.00) % Sodium 149 H (136-145) mEq/L Potassium 3.9 (3.5-5.1) mEq/L Chloride 110 H (98-107) mEq/L Carbon Dioxide 32 (21-32) mEq/L Anion Gap 10.9 (5-15) BUN 28 H (7-18) mg/dL Creatinine 1.4 H (0.7-1.3) mg/dL Est Cr Clr Drug Dosing 43.43 mL/min Estimated GFR (MDRD) 49 (>60) mL/min BUN/Creatinine Ratio 20.0 H (14-18) Glucose 78 (70-99) mg/dL Calcium 8.3 L (8.5-10.1) mg/dL Total Bilirubin 0.4 (0.2-1.0) mg/dL AST 13 L (15-37) U/L ALT 16 (16-63) U/L Alkaline Phosphatase 52 (46-116) U/L C-Reactive Protein 2.7 H* (<1.0) mg/dL Total Protein 6.5 (6.4-8.2) g/dl Albumin 3.1 L (3.4-5.0) g/dl Globulin 3.4 gm/dL Albumin/Globulin Ratio 0.9 L (1-2) SARS-CoV-2 RNA (MARCEL) (NEGATIVE) 12/29/20 12/29/20 Range/Units 01:50 02:00 WBC (4.23-9.07) K/mm3 RBC (4.63-6.08) M/mm3 Hgb (13.7-17.5) gm/dl Hct (40.1-51.0) % MCV (79.0-92.2) fl MCH (25.7-32.2) pg MCHC (32.2-35.5) g/dl RDW Std Deviation (35.1-43.9) fL Plt Count (163-337) K/mm3 MPV (9.4-12.3) fl Neutrophils % (Manual) (40-60) % Band Neutrophils % (0-10) % Lymphocytes % (Manual) (20-40) % Atypical Lymphs % % Monocytes % (Manual) (2-10) % Eosinophils % (Manual) (0.8-7.0) % Basophils % (Manual) (0.2-1.2) Toxic Granulation Platelet Estimate Hypochromasia Anisocytosis Ovalocytes RBC Morph Comment Puncture Site Lt radial ABG pH 7.38 (7.35-7.45) ABG pCO2 51.4 H (35.0-45.0) mmHg ABG pO2 52.0 L (80.0-100.0) mmHg ABG HCO3 29.8 H (22.0-26.0) meq/L ABG O2 Saturation 84.8 L (96.0-97.0) % ABG Base Excess 4.5 H (-2-2.0) Antonio Test Positive A-a Gradient 34 mmHg O2 Delivery Device Room air FiO2 21.00 (21.00-100.00) % Sodium (136-145) mEq/L Potassium (3.5-5.1) mEq/L Chloride (98-107) mEq/L Carbon Dioxide (21-32) mEq/L Anion Gap (5-15) BUN (7-18) mg/dL Creatinine (0.7-1.3) mg/dL Est Cr Clr Drug Dosing mL/min Estimated GFR (MDRD) (>60) mL/min BUN/Creatinine Ratio (14-18) Glucose (70-99) mg/dL Calcium (8.5-10.1) mg/dL Total Bilirubin (0.2-1.0) mg/dL AST (15-37) U/L ALT (16-63) U/L Alkaline Phosphatase (46-116) U/L C-Reactive Protein (<1.0) mg/dL Total Protein (6.4-8.2) g/dl Albumin (3.4-5.0) g/dl Globulin gm/dL Albumin/Globulin Ratio (1-2) SARS-CoV-2 RNA (MARCEL) Negative (NEGATIVE) Meds: Medications Discontinued Medications Generic Name Dose Route Start Last Admin Trade Name Shade PRN Reason Stop Dose Admin Albuterol/Ipratropium 3 ml 12/29/20 02:35 12/29/20 02:47 Albuterol/Ipratropium 3.0-0.5 Mg/3 Ml Neb Soln NEB 12/29/20 02:36 3 ml ONETIME ONE Administration Sodium Chloride 1,000 mls @ 150 mls/hr 12/28/20 23:45 12/29/20 00:35 Normal Saline IV 150 mls/hr ASDIRECTED AMNA Administration Ceftriaxone Sodium 2 gm/ 100 mls @ 200 mls/hr 12/29/20 01:18 12/29/20 02:29 Sodium Chloride IV 12/29/20 01:47 200 mls/hr ONETIME ONE Administration Iopamidol 80 ml 12/29/20 00:48 12/29/20 00:49 Iopamidol 612 Mg/Ml 100 Ml Bottle IVPUSH 12/29/20 00:49 100 ml ONETIME ONE Administration Methylprednisolone Sodium Succinate 125 mg 12/29/20 02:35 12/29/20 02:46 Methylprednisolone Sodium Succinate 125 Mg/2 Ml Sdv IVPUSH 12/29/20 02:36 125 mg ONETIME ONE Administration Sodium Chloride 10 ml 12/29/20 01:00 12/29/20 00:49 Sodium Chloride 0.9% 10 Ml Syringe FLUSH 10 ml BOLUS AMNA Administration - Re-Assessments/Exams Free Text/Narrative Re-Assessment/Exam: 12/29/20 01:45. WBC 7,800. 76 seg, 0 band. CRP 2.7. Na 149, K+ 3.9. Creat. 1.4. CXR nl. sats 87 to 89 % room air, 92 to 94 % [address] of neckpost surgical prevertebral soft tissue edema which results in mass effect on the larynx resulting in focal moderate to severe airway narrowing. At this time pt is actually breathing more comfortable from arrival. However sats room air still only 87 to 89 %. ABG's ordered. 03:00. Awaiting control technician staff for [facility] to call. 12/29/20 03:15. Have discussed this with ESTEBAN Love control technician. He agrees transfer is reasonable, will check with his control technician Phys. and call back. We have checked on fixed wing options. [place] [facility] is out and unavailable. [facility] has a plane available but thunderstorms between [facility] and [place] are prohibiting them from making the transfer at this time. They will watch the weather and keep us informed. Pt is doing OK. Have turned O2 down to 1 liter NC, sats 90 to 91. Pt feels his breathing is "OK" at this time. He was actually lying fairly flat in bed breathing OK when i checked on him a short time ago. Did get his head and neck elevated again. 03:33. Have heard back from Ivan, he has checked with his Phys. control technician, recomending transfer to [facility]. The [facility] does not have in house Anesthesia or Anesthesia in house if he were to further airway compromise. 12/29/20 03:50. Dr Conde, ED [facility], [place] accepting Phys. It is too far to safely go by ground, will send him fixed wing. Waiting for weather to clear for [facility] to do this transfer. 12/29/20 05:12 [facility] is about to land at airport. I am notified patient has just told his nurse he "has decided he is not willing to go to [facility]", feels better, he thinks it is safe for him to go home. Have explained to him again the seriousness of his condition and that it could again get worse before it is all better. I did convince him to talk to a different daughter that is a nurse. 05:25. His nurse daughter has helped convince him that he still does need to go to get the further treatment that he needs. He is now once again willing to go. Flight crew will be here shortly. Sat 91 to 92 % 1 L NC. Departure - Departure Time of Disposition: 05:00 Disposition: DC/Tfer to Acute Hospital 02 Condition: Serious Clinical Impression: Anatomic airway obstruction, Hypoxia COPD (chronic obstructive pulmonary disease) Qualifiers: COPD type: unspecified COPD Qualified Code(s): J44.9 - Chronic obstructive pulm onary disease, unspecified - Discharge Information Referrals: Praneeth Herrmann MD [Primary Care Provider] - Forms: ED Department Discharge Sepsis Event Note (ED) - Focused Exam Vital Signs: Vital Signs Temp Pulse Resp BP Pulse Ox Pulse Ox 12/29/20 02:47 96 12/28/20 23:16 98.8 F 88 20 150/77 H 91 L - My Orders Last 24 Hours: My Active Orders 12/28/20 23:45 Chest 1V Frontal [CR] Stat 12/28/20 23:52 Soft Tissue Neck w Cont [CT] Stat - Assessment/Plan Last 24 Hours: My Active Orders 12/28/20 23:45 Chest 1V Frontal [CR] Stat 12/28/20 23:52 Soft Tissue Neck w Cont [CT] Stat
[2020-12-28] MEDS ORDERED: Sodium Chloride 0.9% 1,000 ML IV SCH (23:45)
[2020-12-29] MEDS ORDERED: Iopamidol 612 MG/ML 100 ML Bottle IVPUSH ONE (00:48)
[2020-12-29] MEDS ORDERED: Sodium Chloride 0.9% 10 ML Syringe FLUSH SCH (01:00)
[2020-12-29] MEDS ORDERED: cefTRIAXone 2 GM in Sodium Chloride 0.9% 100 ML IV ONE (01:18)
[2020-12-29] MEDS ORDERED: Albuterol/Ipratropium 3.0-0.5 MG/3 ML Neb Soln NEB ONE (02:35)
[2020-12-29] MEDS ORDERED: methylPREDNISolone Sodium Succinate 125 MG/2 ML SDV IVPUSH ONE (02:35)
--- NOTE | 2020-12-29 08:49 | CR ---
Chest: Portable view of the chest was obtained. Comparison: Prior chest x-ray of 08/24/17. Parenchymal density is seen within the left mid to lower lung. Right lung is clear. Heart size is normal. Tortuous thoracic aorta is seen. Prior cervical spine surgery is noted. Mild degenerative change is noted within both shoulders. Impression: 1. Findings suspicious for an area of pneumonia within the left mid to lower lung. Please correlate with the patient's symptoms. 2. Other findings as noted above believed to be chronic. Diagnostic code #3
--- NOTE | 2020-12-29 10:06 | CT ---
CT soft tissue neck Technique: Multiple axial sections through the neck were obtained. Intravenous contrast was utilized. Reconstructed coronal and sagittal images were obtained. Comparison: No prior soft tissue neck imaging is available. Findings: Previous surgery is noted at C4-5 and C5-6 with anterior plate and screws and intervertebral disc fixation at C4-5 and C5-6. Slight spondylolisthesis is noted at C3-4 compatible with degenerative apophyseal change. Diffuse soft tissue edema is noted within the prevertebral space and extending into the laryngeal regions. Edema causes moderate to severe narrowing of the laryngeal air space. Parotid and submandibular salivary glands are normal. Visualized lung apices show emphysematous change. Thyroid gland shows no focal abnormality. No adenopathy is seen within the neck. Visualized paranasal sinuses show nothing acute. Epiglottis is normal. Impression: 1. Prior surgery at C5-6 and C6-7 with diffuse prevertebral soft tissue swelling. 2. Additional edema extends into the laryngeal region causing moderate to severe laryngeal narrowing. 3. No other acute abnormality is appreciated on CT study of the neck. Diagnostic code #3 I agree with preliminary report from vR finalized on 12/29/20, 2:21 AM CDT, code 1
== END 2020-12-29 06:00 ==
LOC: JD.ED 23:05
DX: J44.9 Chronic obstructive pulmonary disease, unspecified (principal); R09.02 Hypoxemia; N40.0 Benign prostatic hyperplasia without lower urinary tract symptoms; E11.9 Type 2 diabetes mellitus without complications; I10 Essential (primary) hypertension; Z79.899 Other long term (current) drug therapy; Z79.82 Long term (current) use of aspirin; Z20.822 Contact with and (suspected) exposure to COVID-19
CPT/HCPCS: 36415; 36600; 51798; 70491; 71045; 80053; 82803; 85007; 85027; 86140; 94640; 96365; 96375; 99285; J0696; J2930; J7030; Q9967; U0002; 99284; J7620-GY

== ENCOUNTER 2021-01-07 11:35 | Observation (INO) | payer MEDICARE, OTHER ==
[2021-01-07] MEDS ORDERED: Sodium Chloride 0.9% 10 ML Syringe FLUSH PRN (11:54)
--- NOTE | 2021-01-07 13:19 | PCM.HP.2 ---
<Junito Jaimes - Last Filed: 01/07/21 15:37> H&P History of Present Illness - General Date of Service: 01/07/21 Admit Problem/Dx: Obstructive uropathy Source of Information: Patient, Old Records, Provider, RN, RN Notes Reviewed History Limitations: Reports: No Limitations - History of Present Illness Initial Comments - Free Text/Narative: This is a 35-year-old male who presents to our ED on 01-07-2021 after being seen by his primary care provider, Dr. Herrmann, at [facility]. Patient recently underwent a cervical spine surgery and does have a large well-healing neck wound on his left anterior lateral neck. He states that since his surgery he has been having some difficulty with urination and has only been dribbling occasionally. He is also reporting right lower quadrant abdominal pain and urinary incontinence. He reports that he has had similar issues in the past and was seeing [facility] before. He states he has had a Reinoso catheter in the past, however this was removed. He states he has a history of COPD and is supposed to be on oxygen, however he is not on oxygen while here. While sleeping is noted to have saturations in the mid 80s. He also reports that he supposed be on CPAP at night however he has not been wearing it because it hurts his nose. Labs from [facility] are reviewed with a WBC of 10.2. Hemoglobin 10.1. Platelet of 247,000. Neutrophils of 70.5%. Glucose is 138. BUN is 87. Creatinine 9.28. GFR 6. Sodium is 143. Potassium 4.6. Chloride 99. CO2 27. Anion gap is 22. Calcium 8.2. Protein 6.4. Albumin is 3.3. AST is 12, ALT 12, alkaline phosphatase 58. Total bilirubin 0.5. UA is obtained and is grossly negative. In the ED temp is 97 F. Pulse 71. Blood pressure 127/82. Respirations 16. Oxygen saturation is 94%. UA here is obtained and is grossly negative. Reinoso catheter is placed with an output of approximately 2 L per nursing report. Patient reports abdominal pain 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 Reinoso catheter is placed. Patient will be admitted to the floor observation status for further monitoring and treatment of his obstructive uropathy. His PCP is Dr. Herrmann. Hisotry of COPD, BPH, HLD, gastric bypass, insomnia, HTN, peripheral edema, Sleep apnea non-compliant with cpap, gout and recent cervical spine surgery. Unsure of baseline kidney function and will attempt to obtain old records. Right Groin Pain Score (Numeric/FACES): 1 - Related Data Allergies/Adverse Reactions: Allergies Allergy/AdvReac Type Severity Reaction Status Date / Time No Known Allergies Allergy Verified 01/07/21 15:26 Home Medications: Home Meds Tamsulosin [Flomax] 0.4 mg PO DAILY 07/28/19 [History] Furosemide 80 mg PO DAILY 12/29/20 [History] L. Acidophilus/L. Rhamnosus [Probiotic 15 Billion Cell Cap] 1 cap PO DAILY 12/29/20 [History] Meloxicam 7.5 mg PO DAILY 12/29/20 [History] Potassium Chloride 20 meq PO DAILY 12/29/20 [History] Pramipexole [Mirapex] 1 mg PO BID 12/29/20 [History] Terazosin [Hytrin] 5 mg PO BID 12/29/20 [History] Zolpidem [Ambien] 5 mg PO BEDTIME PRN 12/29/20 [History] allopurinoL [Zyloprim] 100 mg PO DAILY 12/29/20 [History] amLODIPine [Norvasc] 5 mg PO DAILY 12/29/20 [History] buPROPion [Wellbutrin SR] 150 mg PO BID 12/29/20 [History] metOLazone [Metolazone] 5 mg PO DAILY 12/29/20 [History] Acetaminophen [Pain Reliever] 500 mg PO Q8H PRN 01/07/21 [History] Albuterol Sulfate [Albuterol Sulfate Hfa] 2 puff INH Q4H PRN 01/07/21 [History] Calcium Carb/Vitamin D3/Vit K1 [Calcium + Vit D & K Chew] 1 tab PO DAILY 01/07/21 [History] Cyclobenzaprine [Flexeril] 10 mg PO DAILY PRN 01/07/21 [History] atorvaSTATin [Lipitor] 20 mg PO DAILY 01/07/21 [History] oxyCODONE 5 mg PO QID PRN 01/07/21 [History] Past Medical History Cardiovascular History: Reports: Hypertension Respiratory History: Reports: None Genitourinary History: Reports: BPH, Retention, Urinary Musculoskeletal History: Reports: Fracture Neurological History: Reports: Head Trauma Other Neuro History: traumatic brain bleed Psychiatric History: Reports: None Endocrine/Metabolic History: Reports: Diabetes, Type II Hematologic History: Reports: None Immunologic History: Reports: None Oncologic (Cancer) History: Reports: None Dermatologic History: Reports: None - Infectious Disease History Infectious Disease History: Reports: None - Past Surgical History HEENT Surgical History: Reports: Eye Surgery GI Surgical History: Reports: Appendectomy, Bariatric Procedure Neurological Surgical History: Reports: C-Spine, Lumbar Spine Musculoskeletal Surgical History: Reports: Other (See Below) Other Musculoskeletal Surgeries/Procedures:: neck and back surgery Social & Family History - Family History Family Medical History: No Pertinent Family History - Tobacco Use Tobacco Use Status *Q: Former Tobacco User Used Tobacco, but Quit: Yes Month/Year Tobacco Last Used: 4 weeks ago - Caffeine Use Caffeine Use: Reports: None - Recreational Drug Use Recreational Drug Use: No - Living Situation & Occupation Living situation: Reports: , with Spouse Occupation: Unemployed H&P Review of Systems - Review of Systems: Review Of Systems: See Below General: Reports: No Symptoms. Denies: Fever, Chills, Malaise, Weakness, Fatigue HEENT: Reports: No Symptoms. Denies: Headaches, Sore Throat Pulmonary: Reports: No Symptoms. Denies: Shortness of Breath, Wheezing, Pl euritic Chest Pain, Cough, Sputum Cardiovascular: Reports: No Symptoms. Denies: Chest Pain, Palpitations, Dyspnea on Exertion, Edema Gastrointestinal: Reports: No Symptoms. Denies: Abdominal Pain, Constipation, Diarrhea, Nausea, Vomiting Genitourinary: Reports: Incontinence, Retention. Denies: Pain, Urgency Musculoskeletal: Reports: No Symptoms. Denies: Neck Pain Skin: Reports: No Symptoms. Denies: Cyanosis Psychiatric: Reports: No Symptoms. Denies: Confusion Neurological: Reports: No Symptoms. Denies: Confusion, Dizziness, Headache, Numbness, Pre-Existing Deficit, Tingling, Difficulty Walking, Weakness, Gait D isturbance Hematologic/Lymphatic: Reports: No Symptoms Immunologic: Reports: No Symptoms Exam - Exam Exam: See Below - Vital Signs Vital Signs: Last Vital Signs Temp 97 F 01/07/21 11:43 Pulse 71 01/07/21 11:43 Resp 16 01/07/21 11:43 BP 127/82 01/07/21 11:43 Pulse Ox 94 L 01/07/21 11:43 Weight: 104.326 kg - Exam Quality Assessment: Urinary Catheter (Placed in ED ), DVT Prophylaxis. No: Supplemental Oxygen (Per patient he is supposed to be on 2 L at all times however he is not wearing any currently.) General: Alert, Oriented, Cooperative. No: Mild Distress HEENT: Conjunctiva Clear, EACs Clear, Mucosa Moist & [place], Posterior Pharynx Clear Neck: Supple, Trachea Midline, Other (Status post cervical spine surgery. Large well-healing laceration with sutures in place on anterior left lateral area of neck.). No: Full Range of Motion Lungs: Normal Respiratory Effort, Decreased Breath Sounds, Wheezing Cardiovascular: Regular Rate, Regular Rhythm GI/Abdominal Exam: Normal Bowel Sounds, Soft, Non-Tender, No Distention (Male) Exam: Deferred Rectal (Males) Exam: Deferred Back Exam: Normal Inspection, Full Range of Motion Peripheral Pulses: 2+: Radial (L), Radial (R), Dorsalis Pedis (L), Dorsalis Pedis (R) Skin: Warm, Dry, Intact Neurological: Cranial Nerves Intact (Grossly) Neuro Extensive - Mental Status: Alert, Oriented x3, Normal Mood/Affect - Patient Data Lab Results Last 24 hrs: Laboratory Results - last 24 hr 01/07/21 Range/Units 12:04 Urine Color Yellow (Yellow) Urine Appearance Clear (Clear) Urine pH 5.5 (5.0-8.0) Ur Specific [place] 1.020 (1.005-1.030) Urine Protein Negative (Negative) Urine Glucose (UA) Negative (Negative) Urine Ketones Negative (Negative) Urine Occult Blood Negative (Negative) Urine Nitrite Negative (Negative) Urine Bilirubin Negative (Negative) Urine Urobilinogen 0.2 (0.2-1.0) Ur Leukocyte Esterase Negative (Negative) Sepsis Event Note - Evaluation Sepsis Screening Result: No Definite Risk - Focused Exam Vital Signs: Vital Signs Temp Pulse Resp BP Pulse Ox 01/07/21 11:43 97 F 71 16 127/82 94 L - Problem List (1) Oxygen dependent SNOMED Code(s): 194812413254 ICD Code: Z99.81 - DEPENDENCE ON SUPPLEMENTAL OXYGEN Status: Chronic Priority: Medium Current Visit: Yes (2) Obstructive sleep apnea on CPAP SNOMED Code(s): 30896991 ICD Code: G47.33 - OBSTRUCTIVE SLEEP APNEA (ADULT) (PEDIATRIC); Z99.89 - DEPENDENCE ON OTHER ENABLING MACHINES AND DEVICES Status: Chronic Priority: Medium Current Visit: Yes (3) Medically noncompliant SNOMED Code(s): 628447922 ICD Code: Z91.19 - PATIENT'S NONCOMPLIANCE W OTH MEDICAL TREATMENT AND REG IMEN Status: Chronic Priority: Medium Current Visit: Yes (4) Obstructive nephropathy SNOMED Code(s): 11969922 ICD Code: N13.8 - OTHER OBSTRUCTIVE AND REFLUX UROPATHY Status: Acute Priority: High Current Visit: Yes (5) EDWARD (acute kidney injury) SNOMED Code(s): 66283390, 21822411 ICD Code: N17.9 - ACUTE KIDNEY FAILURE, UNSPECIFIED Status: Acute Priority: High Current Visit: Yes (6) Reinoso catheter in place SNOMED Code(s): 617506087 ICD Code: Z97.8 - PRESENCE OF OTHER SPECIFIED DEVICES Status: Acute Prio rity: High Current Visit: Yes (7) Hx of cervical spine surgery SNOMED Code(s): 531468575 ICD Code: Z98.890 - OTHER SPECIFIED POSTPROCEDURAL STATES Status: Chronic Priority: Medium Current Visit: Yes (8) BPH (benign prostatic hyperplasia) SNOMED Code(s): 003827778 ICD Code: N40.0 - BENIGN PROSTATIC HYPERPLASIA WITHOUT LOWER URINRY TRACT SY MP Status: Chronic Priority: High Current Visit: Yes Qualifiers: Lower urinary tract symptom presence: symptoms present Lower urinary tract symptom detail: urinary obstruction Qualified Code(s): N40.1 - Benign prostatic hyperplasia with lower urinary tract symptoms; N13.8 - Other obstructive and reflux uropathy (9) Urinary retention SNOMED Code(s): 738240194 ICD Code: R33.9 - RETENTION OF URINE, UNSPECIFIED Status: Acute Priority: High Current Visit: Yes (10) COPD (chronic obstructive pulmonary disease) SNOMED Code(s): 65850497 ICD Code: J44.9 - CHRONIC OBSTRUCTIVE PULMONARY DISEASE, UNSPECIFIED Status: Chronic Priority: Medium Current Visit: No Qualifiers: COPD type: unspecified COPD Qualified Code(s): J44.9 - Chronic obstructive pulmonary disease, unspecified (11) Hypoxia SNOMED Code(s): 411768373 ICD Code: R09.02 - HYPOXEMIA Status: Chronic Priority: Medium Current Visit: Yes (12) HLD (hyperlipidemia) SNOMED Code(s): 12710076 ICD Code: E78.5 - HYPERLIPIDEMIA, UNSPECIFIED Status: Chronic Priority: Low Current Visit: No Qualifiers: Hyperlipidemia type: unspecified Qualified Code(s): E78.5 - Hyperlipidemia, unspecified (13) History of gastric bypass SNOMED Code(s): 719224756 ICD Code: Z98.84 - BARIATRIC SURGERY STATUS Status: Chronic Priority: Low Current Visit: No (14) Insomnia SNOMED Code(s): 755968984 ICD Code: G47.00 - INSOMNIA, UNSPECIFIED Status: Chronic Priority: Low Current Visit: No Qualifiers: Insomnia type: unspecified Qualified Code(s): G47.00 - Insomnia, unspecified (15) HTN (hypertension) SNOMED Code(s): 54853988 ICD Code: I10 - ESSENTIAL (PRIMARY) HYPERTENSION Status: Chronic Priority: Low Current Visit: No Qualifiers: Hypertension type: unspecified Qualified Code(s): I10 - Essential (primary) hypertension (16) Gout SNOMED Code(s): 99087252 ICD Code: M10.9 - GOUT, UNSPECIFIED Status: Chronic Priority: Low Current Visit: No Qualifiers: Gout site: unspecified site Gout etiology: unspecified cause Chronicity: chronic Presence of tophus: without tophus Qualified Code(s): M1A.9XX0 - Chronic gout, unspecified, without tophus (tophi) (17) Peripheral edema SNOMED Code(s): 678331896 ICD Code: R60.9 - EDEMA, UNSPECIFIED Status: Chronic Priority: Low Current Visit: No Problem List Initiated/Reviewed/Updated: Yes Orders Last 24hrs: Active Orders 24 hr Category Date Time Status Peripheral IV Care [RC] . DIRECTED Care 01/07/21 11:55 Active Peripheral IV Care [RC] . DIRECTED Care 01/07/21 11:56 Active Sodium Chloride 0.9% [Saline Flush] Med 01/07/21 11:54 Active 10 ml FLUSH ASDIRECTED PRN Peripheral IV Insertion Adult [OM.PC] Routine Oth 01/07/21 11:55 Ordered Medication Orders Sodium Chloride (Sodium Chloride 0.9% 10 Ml Syringe) 10 ml FLUSH ASDIRECTED PRN PRN Reason: Keep Vein Open Assessment/Plan Comment:: Assessment - day of admission 01/07/2021 * 35-year-old male who presents to our ED after being seen by his primary care provider, Dr. Herrmann, at [facility] * History of COPD, BPH, HLD, gastric bypass, insomnia, hypertension, asleep apnea non-compliant with CPAP, gout, peripheral edema, and recent cervical spine surgery. * Recently underwent a cervical spine surgery and does have a large well-healing neck wound on his left anterior lateral neck * Since his surgery he has been having some difficulty with urination, dribbling occasionally, incontinence and now RLQ ab pain * Reports that he has had similar issues in the past and was seeing [facility] before; Has had reinoso in past. * He states he has a history of COPD and is supposed to be on oxygen, however he is not on oxygen while here. * While sleeping is noted to have saturations in the mid 80s. * Reports that he supposed be on CPAP at night however he has not been wearing it because it hurts his nose. * Labs from [facility] are reviewed: * WBC of 10.2. * Hemoglobin 10.1. * Platelet of 247,000. * Neutrophils of 70.5%. * Glucose is 138. * BUN is 87. Creatinine 9.28. GFR 6. * Sodium is 143. * Potassium 4.6. * Chloride 99. * CO2 27. * Anion gap is 22. * Calcium 8.2. * Protein 6.4. * Albumin is 3.3. * AST is 12, ALT 12, alkaline phosphatase 58. * Total bilirubin 0.5. * UA is obtained and is grossly negative. * UA obtained in our ED is grossly negative * Reinoso catheter placed in ED with 2L urine output and resolution of abdominal pain * Admitted observation status for management of his obstructive nephropathy. PLAN: Obstructive nephropathy EDWARD (acute kidney injury) Reinoso catheter in place BPH (benign prostatic hyperplasia) Urinary retention * Continue reinoso catheter * Urology follow-up on discharge * Obtain old records to ascertain baseline renal function * Avoid nephrotoxic meds * IV Fluids as ordered * Re-check AM labs Oxygen dependent Obstructive sleep apnea on CPAP Medically noncompliant COPD (chronic obstructive pulmonary disease) Hypoxia * O2 to keep saturations above 90% (2L baseline) * CPAP at night * Monitor saturations * Hx of cervical spine surgery * No acute concerns * PT/OT HLD (hyperlipidemia) * No acute concerns * Continue home statin History of gastric bypass * No acute concerns Insomnia * No acute concerns * Continue home meds HTN (hypertension) Peripheral edema * No acute concerns * Hold home lasix and metolazone for now * Monitor vital signs Gout * Hold allopurinol today * No acute concerns Code status: Full Code PCP: Dr. Herrmann DVT Prophylaxis: Heparin Disposition: Patient admitted to medical surgical floor for management of obstructive uropathy with Reinoso in place. Likely length of stay 1 to 2 days. Patient will require outpatient urology follow-up. - Mortality Measure Prognosis:: Good <Nicolas Blakely - Last Filed: 01/07/21 16:38> H&P History of Present Illness - General Admit Problem/Dx: Admission Diagnosis/Problem Admission Diagnosis/Problem Obstructive uropathy Exam - Vital Signs Vital Signs: Last Vital Signs Temp 36.4 C 01/07/21 14:58 Pulse 73 01/07/21 14:58 Resp 18 01/07/21 14:58 BP 127/99 H 01/07/21 14:58 Pulse Ox 91 L 01/07/21 14:58 - Patient Data Lab Results Last 24 hrs: Laboratory Results - last 24 hr 01/07/21 Range/Units 12:04 Urine Color Yellow (Yellow) Urine Appearance Clear (Clear) Urine pH 5.5 (5.0-8.0) Ur Specific [place] 1.020 (1.005-1.030) Urine Protein Negative (Negative) Urine Glucose (UA) Negative (Negative) Urine Ketones Negative (Negative) Urine Occult Blood Negative (Negative) Urine Nitrite Negative (Negative) Urine Bilirubin Negative (Negative) Urine Urobilinogen 0.2 (0.2-1.0) Ur Leukocyte Esterase Negative (Negative) Sepsis Event Note - Focused Exam Vital Signs: Vital Signs Temp Temp Pulse Pulse Resp BP BP 01/07/21 14:58 36.4 C 73 18 127/99 H 01/07/21 14:54 78 16 127/82 01/07/21 11:43 36.1 C 71 16 127/82 Pulse Ox 01/07/21 14:58 91 L 01/07/21 14:54 95 01/07/21 11:43 94 L Orders Last 24hrs: Active Orders 24 hr Category Date Time Status Patient Status [ADT] Routine ADT 01/07/21 13:59 Active CPAP Noctural Home [RT BiPAP/CPAP] [RC] ASDIRECTED Care 01/07/21 14:20 Active Height and Weight [RC] 0600 Care 01/07/21 14:05 Active Insert Reinoso Catheter [Insert Urinary Catheter] [OM.PC] Care 01/07/21 16:00 Ordered Q24H Intake and Output [RC] DAILY Care 01/07/21 14:05 Active Oxygen Therapy [RC] ASDIRECTED Care 01/07/21 13:59 Active Peripheral IV Care [RC] . DIRECTED Care 01/07/21 11:55 Active Peripheral IV Care [RC] . DIRECTED Care 01/07/21 11:56 Active Pulse Oximetry [RC] PRN Care 01/07/21 14:05 Active RT Aerosol Therapy [RC] ASDIRECTED Care 01/07/21 14:06 Active RT Incentive Spirometry [RC] ASDIRECTED Care 01/07/21 14:05 Active Up With Assistance [RC] ASDIRECTED Care 01/07/21 14:05 Active Urinary Catheter Assessment [RC] ASDIRECTED Care 01/07/21 15:54 Active Vital Signs [RC] Q6H Care 01/07/21 13:59 Active Consult to Case Management/Cash Office Worker [CONS] Cons 01/07/21 14:05 Active Routine OT Evaluation and Treatment [CONS] Routine Cons 01/07/21 14:06 Active PT Evaluation and Treatment [CONS] Routine Cons 01/07/21 14:06 Active Low Sodium [Sodium Restricted Diet] [DIET] Diet 01/07/21 Dinner Active COMPREHENSIVE METABOLIC PN,CMP [CHEM] AM Lab 01/08/21 05:11 Ordered COMPREHENSIVE METABOLIC PN,CMP [CHEM] AM Lab 01/09/21 05:11 Ordered COMPREHENSIVE METABOLIC PN,CMP [CHEM] AM Lab 01/10/21 05:11 Ordered COMPREHENSIVE METABOLIC PN,CMP [CHEM] AM Lab 01/11/21 05:11 Ordered Acetaminophen [TylenoL] Med 01/07/21 14:05 Active 650 mg PO Q4H PRN Albuterol Sulfate [Albuterol Sulfate Hfa] Med 01/07/21 16:24 Pending 2 puff INH Q4H PRN Albuterol/Ipratropium [DuoNeb 3.0-0.5 MG/3 ML] Med 01/07/21 14:05 Active 3 ml NEB QIDRT PRN Cyclobenzaprine [Flexeril] Med 01/07/21 16:24 Ordered 10 mg PO DAILY PRN Docusate Sodium [Colace] Med 01/07/21 14:05 Active 100 mg PO Q12H PRN Heparin Sodium Med 01/07/21 16:00 Active 5,000 units SUBCUT Q8H Ondansetron [Zofran] Med 01/07/21 14:05 Active 4 mg IV Q6H PRN Sodium Chloride 0.9% [Normal Saline] 1,000 ml Med 01/07/21 15:30 Active IV ASDIRECTED Sodium Chloride 0.9% [Saline Flush] Med 01/07/21 11:54 Active 10 ml FLUSH ASDIRECTED PRN Zolpidem [Ambien] Med 01/07/21 16:24 Ordered 5 mg PO BEDTIME PRN amLODIPine [Norvasc] Med 01/08/21 09:00 Ordered 5 mg PO DAILY buPROPion [Wellbutrin SR] Med 01/07/21 21:00 Ordered 150 mg PO BID Peripheral IV Insertion Adult [OM.PC] Routine Oth 01/07/21 11:55 Ordered Code Status [Resuscitation Status] Routine Resus Stat 01/07/21 14:53 Ordered Medication Orders Acetaminophen (Acetaminophen 325 Mg Tab) 650 mg PO Q4H PRN PRN Reason: Pain (Mild 1-3)/fever Albuterol/Ipratropium (Albuterol/Ipratropium 3.0-0.5 Mg/3 Ml Neb Soln) 3 ml NEB QIDRT PRN PRN Reason: Shortness Of Breath/wheezing Docusate Sodium (Docusate Sodium 100 Mg Cap) 100 mg PO Q12H PRN PRN Reason: Constipation Heparin Sodium (Porcine) (Heparin Sodium 5,000 Units/Ml Vial) 5,000 units SUBCUT Q8H AMNA Sodium Chloride (Normal Saline) 1,000 mls @ 75 mls/hr IV ASDIRECTED AMNA Stop: 01/09/21 04:49 Last Admin: 01/07/21 15:39 Dose: 75 mls/hr Documented by: NITINFrancie Non-Formulary Medication (Albuterol Sulfate [Albuterol Sulfate Hfa]) 2 puff INH Q4H PRN PRN Reason: Shortness of Breath Non-Formulary Medication (Amlodipine [Norvasc]) 5 mg PO DAILY AMNA Non-Formulary Medication (Bupropion [Wellbutrin Sr]) 150 mg PO BID AMNA Non-Formulary Medication (Cyclobenzaprine [Flexeril]) 10 mg PO DAILY PRN PRN Reason: Muscle Spasm - Painful Non-Formulary Medication (Zolpidem [Ambien]) 5 mg PO BEDTIME PRN PRN Reason: Insomnia Ondansetron HCl (Ondansetron 4 Mg/2 Ml Sdv) 4 mg IV Q6H PRN PRN Reason: Nausea/Vomiting Sodium Chloride (Sodium Chloride 0.9% 10 Ml Syringe) 10 ml FLUSH ASDIRECTED PRN PRN Reason: Keep Vein Open Last Admin: 01/07/21 14:03 Dose: 10 ml Documented by: NEEMA Assessment/Plan Comment:: I have seen and examined the patient independently of Junito Jaimes PA-C, and have reviewed the case with him. I have reviewed and agree with the plan and care as outlined by him. Please see orders.
[2021-01-07] MEDS ORDERED: Docusate Sodium 100 MG Cap PO PRN (14:05)
[2021-01-07] MEDS ORDERED: Albuterol/Ipratropium 3.0-0.5 MG/3 ML Neb Soln NEB PRN (14:05)
[2021-01-07] MEDS ORDERED: Ondansetron 4 MG/2 ML SDV IV PRN (14:05)
[2021-01-07] MEDS ORDERED: Acetaminophen 325 MG Tab PO PRN (14:05)
--- NOTE | 2021-01-07 14:51 | EDM.PDOC ---
ED HPI GENERAL MEDICAL PROBLEM - General Chief Complaint: Genitourinary Problem Stated Complaint: CATHETER ISSUES SENT BY DR MALLOY Time Seen by Provider: 01/07/21 11:54 Source of Information: Reports: Patient, Old Records, Provider, RN, RN Notes Reviewed History Limitations: Reports: No Limitations - History of Present Illness INITIAL COMMENTS - FREE TEXT/NARRATIVE: 75 yo M sent here from clinic for creatinine 9 and inability to urinate with 2L in bladder on bladder scan. Patient is approx 2 wks post-op from C-spine fusion/revision procedure at outside hospital, readmitted around 9 days ago for neck swelling, observed and discharged 1 week ago. Since then he has been wearing diapers for urinary dribbling and has had difficulty urinating. He has no additional complaint. No fever. No significant abdominal pain now that reinoso was placed upon arrival to ED. Had urinary retention around a year ago and temporarily required indwelling reinoso. No additional complaint. Right Groin Pain Score (Numeric/FACES): 1 - Related Data Allergies Allergy/AdvReac Type Severity Reaction Status Date / Time No Known Allergies Allergy Verified 01/07/21 11:46 Home Meds: Home Meds Tamsulosin [Flomax] 0.4 mg PO DAILY 07/28/19 [History] Aspirin 81 mg PO DAILY 08/09/19 [History] Docusate Sodium [Colace] 100 mg PO BEDTIME 08/09/19 [History] Furosemide 80 mg PO ASDIRECTED 12/29/20 [History] L. Acidophilus/L. Rhamnosus [Probiotic 15 Billion Cell Cap] 1 cap PO DAILY 12/29/20 [History] Meloxicam 7.5 mg PO DAILY 12/29/20 [History] Phytonadione [Vitamin K] 100 mcg PO DAILY 12/29/20 [History] Potassium Chloride 20 meq PO DAILY 12/29/20 [History] Pramipexole [Mirapex] 1 mg PO DAILY 12/29/20 [History] Terazosin [Hytrin] 5 mg PO DAILY 12/29/20 [History] Zolpidem [Ambien] 5 mg PO BEDTIME PRN 12/29/20 [History] allopurinoL [Zyloprim] 100 mg PO DAILY 12/29/20 [History] amLODIPine [Norvasc] 5 mg PO DAILY 12/29/20 [History] buPROPion [Wellbutrin SR] 150 mg PO DAILY 12/29/20 [History] hydroCHLOROthiazide [Hydrochlorothiazide] 25 mg PO ASDIRECTED 12/29/20 [History] metOLazone [Metolazone] 5 mg PO DAILY 12/29/20 [History] Past Medical History Cardiovascular History: Reports: Hypertension Respiratory History: Reports: None Genitourinary History: Reports: BPH, Retention, Urinary Musculoskeletal History: Reports: Fracture Neurological History: Reports: Head Trauma Other Neuro History: traumatic brain bleed Psychiatric History: Reports: None Endocrine/Metabolic History: Reports: Diabetes, Type II Hematologic History: Reports: None Immunologic History: Reports: None Oncologic (Cancer) History: Reports: None Dermatologic History: Reports: None - Infectious Disease History Infectious Disease History: Reports: None - Past Surgical History HEENT Surgical History: Reports: Eye Surgery GI Surgical History: Reports: Appendectomy, Bariatric Procedure Neurological Surgical History: Reports: C-Spine, Lumbar Spine Musculoskeletal Surgical History: Reports: Other (See Below) Other Musculoskeletal Surgeries/Procedures:: neck and back surgery Social & Family History - Family History Family Medical History: No Pertinent Family History - Tobacco Use Tobacco Use Status *Q: Former Tobacco User Used Tobacco, but Quit: Yes Month/Year Tobacco Last Used: 4 weeks ago - Caffeine Use Caffeine Use: Reports: None - Recreational Drug Use Recreational Drug Use: No - Living Situation & Occupation Living situation: Reports: , with Spouse Occupation: Unemployed ED ROS GENERAL - Review of Systems Review Of Systems: See Below Constitutional: Denies: Fever HEENT: Reports: No Symptoms Respiratory: Reports: No Symptoms Cardiovascular: Reports: No Symptoms Endocrine: Reports: No Symptoms GI/Abdominal: Reports: No Symptoms : Reports: Urinary Retention. Denies: Dysuria Musculoskeletal: Reports: Neck Pain Skin: Reports: No Symptoms Neurological: Reports: No Symptoms Psychiatric: Reports: No Symptoms Hematologic/Lymphatic: Reports: No Symptoms Immunologic: Reports: No Symptoms ED EXAM, GENERAL - Physical Exam Exam: See Below Exam Limited By: No Limitations General Appearance: Alert, WD/WN, No Apparent Distress Eye Exam: Bilateral Eye: Normal Inspection Ears: Normal External Exam Nose: Normal Inspection Throat/Mouth: Normal Inspection, Normal Voice, No Airway Compromise Head: Atraumatic, Normocephalic Neck: Normal Inspection, Supple, Non-Tender Respiratory/Chest: No Respiratory Distress, Lungs Clear, Normal Breath Sounds Cardiovascular: Normal Peripheral Pulses, Regular Rate, Rhythm Peripheral Pulses: 2+: Radial (L), Radial (R), Dorsalis Pedis (L), Dorsalis Pedis (R) GI/Abdominal: Normal Bowel Sounds, Soft, Non-Tender, No Distention Back Exam: Normal Inspection, Full Range of Motion Extremities: Normal Inspection Neurological: Alert, Oriented, Normal Cognition, No Motor/Sensory Deficits Psychiatric: Normal Affect, Normal Mood Skin Exam: Warm, Dry, Intact, Normal Color Course - Vital Signs Last Recorded V/S: Last Vital Signs Temp 36.4 C 01/07/21 14:58 Pulse 73 01/07/21 14:58 Resp 18 01/07/21 14:58 BP 127/99 H 01/07/21 14:58 Pulse Ox 91 L 01/07/21 14:58 - Orders/Labs/Meds Orders: Active Orders 24 hr Category Date Time Status Peripheral IV Care [RC] . DIRECTED Care 01/07/21 11:55 Active Peripheral IV Care [RC] . DIRECTED Care 01/07/21 11:56 Active Sodium Chloride 0.9% [Saline Flush] Med 01/07/21 11:54 Active 10 ml FLUSH ASDIRECTED PRN Peripheral IV Insertion Adult [OM.PC] Routine Oth 01/07/21 11:55 Ordered Medication Orders Acetaminophen (Acetaminophen 325 Mg Tab) 650 mg PO Q4H PRN PRN Reason: Pain (Mild 1-3)/fever Albuterol/Ipratropium (Albuterol/Ipratropium 3.0-0.5 Mg/3 Ml Neb Soln) 3 ml NEB QIDRT PRN PRN Reason: Shortness Of Breath/wheezing Docusate Sodium (Docusate Sodium 100 Mg Cap) 100 mg PO Q12H PRN PRN Reason: Constipation Ondansetron HCl (Ondansetron 4 Mg/2 Ml Sdv) 4 mg IV Q6H PRN PRN Reason: Nausea/Vomiting Sodium Chloride (Sodium Chloride 0.9% 10 Ml Syringe) 10 ml FLUSH ASDIRECTED PRN PRN Reason: Keep Vein Open Last Admin: 01/07/21 14:03 Dose: 10 ml Documented by: NEEMA Labs: Laboratory Tests 01/07/21 Range/Units 12:04 Urine Color Yellow (Yellow) Urine Appearance Clear (Clear) Urine pH 5.5 (5.0-8.0) Ur Specific [place] 1.020 (1.005-1.030) Urine Protein Negative (Negative) Urine Glucose (UA) Negative (Negative) Urine Ketones Negative (Negative) Urine Occult Blood Negative (Negative) Urine Nitrite Negative (Negative) Urine Bilirubin Negative (Negative) Urine Urobilinogen 0.2 (0.2-1.0) Ur Leukocyte Esterase Negative (Negative) Meds: Medications Generic Name Dose Route Start Last Admin Trade Name Freq PRN Reason Stop Dose Admin Acetaminophen 650 mg 01/07/21 14:05 Acetaminophen 325 Mg Tab PO Q4H PRN Pain (Mild 1-3)/fever Albuterol/Ipratropium 3 ml 01/07/21 14:05 Albuterol/Ipratropium 3.0-0.5 Mg/3 Ml Neb Soln NEB QIDRT PRN Shortness Of Breath/wheezing Docusate Sodium 100 mg 01/07/21 14:05 Docusate Sodium 100 Mg Cap PO Q12H PRN Constipation Ondansetron HCl 4 mg 01/07/21 14:05 Ondansetron 4 Mg/2 Ml Sdv IV Q6H PRN Nausea/Vomiting Sodium Chloride 10 ml 01/07/21 11:54 01/07/21 14:03 Sodium Chloride 0.9% 10 Ml Syringe FLUSH 10 ml ASDIRECTED PRN Administration Keep Vein Open - Re-Assessments/Exams Free Text/Narrative Re-Assessment/Exam: 01/07/21 15:26 Outside labs reviewed, creatinine 9, potassium and other electrolytes within normal limits. CBC normal. Reinoso placed here by nurses. Discussed with Dr. Blakely (hospitalist) who agrees to admit the patient. Departure - Departure Time of Disposition: 14:50 Disposition: Admitted As Inpatient 65 Clinical Impression: Urinary obstruction, Acute kidney injury - Discharge Information Sepsis Event Note (ED) - Evaluation Sepsis Screening Result: No Definite Risk - Focused Exam Vital Signs: Vital Signs Temp Pulse Resp BP Pulse Ox 01/07/21 11:43 36.1 C 71 16 127/82 94 L - My Orders Last 24 Hours: My Active Orders 01/07/21 11:54 Sodium Chloride 0.9% [Saline Flush] 10 ml FLUSH ASDIRECTED PRN 01/07/21 11:55 Peripheral IV Care [RC] . DIRECTED Peripheral IV Insertion Adult [OM.PC] Routine 01/07/21 11:56 Peripheral IV Care [RC] . DIRECTED - Assessment/Plan Last 24 Hours: My Active Orders 01/07/21 11:54 Sodium Chloride 0.9% [Saline Flush] 10 ml FLUSH ASDIRECTED PRN 01/07/21 11:55 Peripheral IV Care [RC] . DIRECTED Peripheral IV Insertion Adult [OM.PC] Routine 01/07/21 11:56 Peripheral IV Care [RC] . DIRECTED
[2021-01-07] MEDS: Sodium Chloride 0.9% 1,000 ML IV SCH (15:39)
[2021-01-07] MEDS ORDERED: Albuterol 6.7 GM Inhaler INH PRN (16:24)
[2021-01-07] MEDS ORDERED: Zolpidem 5 MG Tab PO PRN (16:24)
[2021-01-07] MEDS ORDERED: Cyclobenzaprine 10 MG Tab PO PRN (16:24)
[2021-01-07] MEDS ORDERED: oxyCODONE 5 MG Tab PO PRN (16:52)
[2021-01-07] MEDS: Heparin Sodium 5,000 Units/ML Vial SUBCUT SCH ×2 (17:22→23:32)
[2021-01-07] MEDS: buPROPion 150 MG Tab.SR PO SCH (23:32)
[2021-01-08] MEDS: Sodium Chloride 0.9% 1,000 ML IV SCH (04:58)
[2021-01-08] MEDS ORDERED: ACIDOPHILUS PO SCH (09:00)
[2021-01-08] MEDS ORDERED: Calcium Carbonate/Vitamin D3 600 MG-200 Units Tab PO SCH (09:00)
[2021-01-08] MEDS ORDERED: amLODIPine 5 MG Tab PO SCH (09:00)
[2021-01-08] MEDS ORDERED: [UNRECOGNIZED DRUG - OTHER] PO SCH (09:00)
[2021-01-08] MEDS: buPROPion 150 MG Tab.SR PO SCH (09:04)
[2021-01-08] MEDS: Heparin Sodium 5,000 Units/ML Vial SUBCUT SCH ×2 (09:04→17:51)
--- NOTE | 2021-01-08 09:27 | PCM.DCSUM1 ---
<Junito Jaimes - Last Filed: 01/08/21 11:00> Discharge Summary - Hospital Course HPI Initial Comments: This is a 35-year-old male who presents to our ED on 01-07-2021 after being seen by his primary care provider, Dr. Herrmann, at [facility]. Patient recently underwent a cervical spine surgery and does have a large well-healing neck wound on his left anterior lateral neck. He states that since his surgery he has been having some difficulty with urination and has only been dribbling occasionally. He is also reporting right lower quadrant abdominal pain and urinary incontinence. He reports that he has had similar issues in the past and was seeing [facility] before. He states he has had a Ramos catheter in the past, however this was removed. He states he has a history of COPD and is supposed to be on oxygen, however he is not on oxygen while here. While sleeping is noted to have saturations in the mid 80s. He also reports that he supposed be on CPAP at night however he has not been wearing it because it hurts his nose. Labs from [facility] are reviewed with a WBC of 10.2. Hemoglobin 10.1. Platelet of 247,000. Neutrophils of 70.5%. Glucose is 138. BUN is 87. Creatinine 9.28. GFR 6. Sodium is 143. Potassium 4.6. Chloride 99. CO2 27. Anion gap is 22. Calcium 8.2. Protein 6.4. Albumin is 3.3. AST is 12, ALT 12, alkaline phosphatase 58. Total bilirubin 0.5. UA is obtained and is grossly negative. In the ED temp is 97 F. Pulse 71. Blood pressure 127/82. Respirations 16. Oxygen saturation is 94%. UA here is obtained and is grossly negative. Ramos catheter is placed with an output of approximately 2 L per nursing report. Patient reports abdominal pain 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 Ramos catheter is placed. Patient will be admitted to the floor observation status for further monitoring and treatment of his obstructive uropathy. His PCP is Dr. Herrmann. Hisotry of COPD, BPH, HLD, gastric bypass, insomnia, HTN, peripheral edema, Sleep apnea non-compliant with cpap, gout and recent cervical spine surgery. Unsure of baseline kidney function and will attempt to obtain old records. Diagnosis: Stroke: No - Discharge Data Discharge Date: 01/08/21 (Admit date: 01/07/2021) Discharge Disposition: Home, Self-Care 01 Condition: Good - Referral to Home Health Primary Care Physician: Praneeth Herrmann MD - Discharge Diagnosis/Problem(s) (1) Oxygen dependent SNOMED Code(s): 634488286750 ICD Code: Z99.81 - DEPENDENCE ON SUPPLEMENTAL OXYGEN Status: Chronic Priority: Medium Current Visit: Yes (2) Obstructive sleep apnea on CPAP SNOMED Code(s): 33610995 ICD Code: G47.33 - OBSTRUCTIVE SLEEP APNEA (ADULT) (PEDIATRIC); Z99.89 - DEPENDENCE ON OTHER ENABLING MACHINES AND DEVICES Status: Chronic Priority: Medium Current Visit: Yes (3) Medically noncompliant SNOMED Code(s): 304057457 ICD Code: Z91.19 - PATIENT'S NONCOMPLIANCE W OTH MEDICAL TREATMENT AND REGIMEN Status: Chronic Priority: Medium Current Visit: Yes (4) Obstructive nephropathy SNOMED Code(s): 09675017 ICD Code: N13.8 - OTHER OBSTRUCTIVE AND REFLUX UROPATHY Status: Acute Priority: High Current Visit: Yes (5) EDWARD (acute kidney injury) SNOMED Code(s): 29446024, 85006619 ICD Code: N17.9 - ACUTE KIDNEY FAILURE, UNSPECIFIED Status: Acute Priority: High Current Visit: Yes (6) Ramos catheter in place SNOMED Code(s): 266027271 ICD Code: Z97.8 - PRESENCE OF OTHER SPECIFIED DEVICES Status: Acute Priority: High Current Visit: Yes (7) Hx of cervical spine surgery SNOMED Code(s): 175169953 ICD Code: Z98.890 - OTHER SPECIFIED POSTPROCEDURAL STATES Status: Chronic Priority: Medium Current Visit: Yes (8) BPH (benign prostatic hyperplasia) SNOMED Code(s): 692777858 ICD Code: N40.0 - BENIGN PROSTATIC HYPERPLASIA WITHOUT LOWER URINRY TRACT SYMP Status: Chronic Priority: High Current Visit: Yes Qualifiers: Lower urinary tract symptom presence: symptoms present Lower urinary tract symptom detail: urinary obstruction Qualified Code(s): N40.1 - Benign prostatic hyperplasia with lower urinary tract symptoms; N13.8 - Other obstructive and reflux uropathy (9) Urinary retention SNOMED Code(s): 685237253 ICD Code: R33.9 - RETENTION OF URINE, UNSPECIFIED Status: Acute Priority: High Current Visit: Yes (10) COPD (chronic obstructive pulmonary disease) SNOMED Code(s): 35435759 ICD Code: J44.9 - CHRONIC OBSTRUCTIVE PULMONARY DISEASE, UNSPECIFIED Status: Chronic Priority: Medium Current Visit: No Qualifiers: COPD type: unspecified COPD Qualified Code(s): J44.9 - Chronic obstructive pulmonary disease, unspecified (11) Hypoxia SNOMED Code(s): 226677100 ICD Code: R09.02 - HYPOXEMIA Status: Chronic Priority: Medium Current Visit: Yes (12) HLD (hyperlipidemia) SNOMED Code(s): 56536684 ICD Code: E78.5 - HYPERLIPIDEMIA, UNSPECIFIED Status: Chronic Priority: Low Current Visit: No Qualifiers: Hyperlipidemia type: unspecified Qualified Code(s): E78.5 - Hyperlipidemia, unspecified (13) History of gastric bypass SNOMED Code(s): 381982202 ICD Code: Z98.84 - BARIATRIC SURGERY STATUS Status: Chronic Priority: Low Current Visit: No (14) Insomnia SNOMED Code(s): 291137137 ICD Code: G47.00 - INSOMNIA, UNSPECIFIED Status: Chronic Priority: Low Current Visit: No Qualifiers: Insomnia type: unspecified Qualified Code(s): G47.00 - Insomnia, unspecified (15) HTN (hypertension) SNOMED Code(s): 30481460 ICD Code: I10 - ESSENTIAL (PRIMARY) HYPERTENSION Status: Chronic Priority: Low Current Visit: No Qualifiers: Hypertension type: unspecified Qualified Code(s): I10 - Essential (primary) hypertension (16) Gout SNOMED Code(s): 32191758 ICD Code: M10.9 - GOUT, UNSPECIFIED Status: Chronic Priority: Low Current Visit: No Qualifiers: Gout site: unspecified site Gout etiology: unspecified cause Chronicity: chronic Presence of tophus: without tophus Qualified Code(s): M1A.9XX0 - Chronic gout, unspecified, without tophus (tophi) (17) Peripheral edema SNOMED Code(s): 044646016 ICD Code: R60.9 - EDEMA, UNSPECIFIED Status: Chronic Priority: Low Current Visit: No - Patient Summary/Data Consults: Consultations 01/07/21 14:05 Consult to Case Management/Land Leveler [CONS] Routine 01/07/21 14:06 OT Evaluation and Treatment [CONS] Routine PT Evaluation and Treatment [CONS] Routine Labs Pending at D/C: None Recommended Follow-up Testing/Procedures: Follow-up with primary care provider within 7 to 10 days of discharge. -Patient was discharged with a Ramos catheter in place. -Recommend repeat CBC, CMP, and magnesium at that visit. -Repeat CMP ordered for 01/10/2021 with results forwarded to PCP. Please review these results. Follow-up with outpatient urology at next available. Hospital Course: This is a 75-year-old male who presented to ED after being seen by his primary care provider, Dr. Cordova, at [facility]. He carries a history of COPD, BPH, HLD, gastric bypass, insomnia, hypertension, sleep apnea noncompliant with his CPAP, gout, peripheral edema, and recent cervical spine surgery. He reports he is oxygen dependent on 2 L however he is not currently wearing it and does state that he oftentimes will not wear it. Since his cervical spine surgery he reports his been having difficulty with urination. He reports incontinence and only dribbling. He now reports right lower quadrant abdominal pain. In the ED he was observed to have saturations in the mid 80s while resting and he has been on 2 L since admission. At [facility] he was noted to have a BUN of 87 with a creatinine of 9.28 and GFR of 6. In the ED a Ramos catheter was placed resulting in approximately 2 L of urine output. UA was obtained and was grossly negative. He was started on gentle IV hydration and his nephrotoxic medications were held throughout his stay. He has continued to have good urine output. He is noted to have some hematuria last night however this has been improving. Denies any current pain and states his abdominal pain 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 insertion of his Ramos catheter. Today his BUN has improved to 62 and his creatinine is down to 5.1. GFR is 11. Prior labs reveal patient has baseline CKD and on prior visits he was 1.44 creatinine are around 50. Patient diagnosed with obstructive neuropathy. He reports he has had issues with urinary retention in the past and has had a Ramos catheter, at which time he saw a urology provider at [facility] in [place]. Patient does report some financial concerns and concerns with making the trip to [place] due to cost and social work was involved, offering the patient resources. He denies any current issues. Discussed case with Dr. Blakely, attending hospitalist, who believes patient is ready for discharge. We will have the patient hold his Lasix, meloxicam, and metolazone tomorrow, 01/09/2021 and resume these on 01/10/2021. Repeat CMP has been ordered for 01/10/2022 call to patient's primary care provider. Patient will need outpatient urology follow-up, as he will be discharged on a Ramos catheter. All other home medications were continued. Patient was instructed to follow-up with primary care provider return the emergency room should symptoms return or worsen. Recommend follow-up with primary care provider within 7 to 10 days of discharge, sooner if needed. Recommend repeat CBC, CMP, and magnesium at that visit. Recommend follow-up with outpatient urology as noted prior. Patient was evaluated by PT and OT who are recommending outpatient physical therapy. Patient discharged home today. - Patient Instructions Diet: Low Sodium Activity: As Tolerated Showering/Bathing: May Shower Notify Provider of: Fever, Nausea and/or Vomiting Other/Special Instructions: Follow-up with primary care provider within 7 to 10 days of discharge, sooner if needed. Follow-up with urology at next available. Orders were placed for you to have a lab draw to check your kidney function on 01/10/21. These will be sent to your primary care provider as well. Continue to care for your Ramos catheter as per directions from nursing. Hold your home Lasix, meloxicam and metolazone medications tomorrow, 01/09/2021 and resume on 01/10/2021. Continue to wear your oxygen as directed by your primary care provider2 L at all times. Recommend you discuss your CPAP mask with your primary care provider. There are multiple options available now for masks and is likely they can find one that will fit your face better and not cause any injury. No new medications. Should symptoms return or worsen contact primary care provider or return to the emergency room. - Discharge Plan *PRESCRIPTION DRUG MONITORING PROGRAM REVIEWED*: No *COPY OF PRESCRIPTION DRUG MONITORING REPORT IN PATIENT CHITO: No Home Medications: Home Meds Tamsulosin [Flomax] 0.4 mg PO DAILY 07/28/19 [History] Furosemide 80 mg PO DAILY 12/29/20 [History] L. Acidophilus/L. Rhamnosus [Probiotic 15 Billion Cell Cap] 1 cap PO DAILY 12/29/20 [History] Meloxicam 7.5 mg PO DAILY 12/29/20 [History] Potassium Chloride 20 meq PO DAILY 12/29/20 [History] Pramipexole [Mirapex] 1 mg PO BID 12/29/20 [History] Terazosin [Hytrin] 5 mg PO BID 12/29/20 [History] Zolpidem [Ambien] 5 mg PO BEDTIME PRN 12/29/20 [History] allopurinoL [Zyloprim] 100 mg PO DAILY 12/29/20 [History] amLODIPine [Norvasc] 5 mg PO DAILY 12/29/20 [History] buPROPion [Wellbutrin SR] 150 mg PO BID 12/29/20 [History] metOLazone [Metolazone] 5 mg PO DAILY 12/29/20 [History] Acetaminophen [Pain Reliever] 500 mg PO Q8H PRN 01/07/21 [History] Albuterol Sulfate [Albuterol Sulfate Hfa] 2 puff INH Q4H PRN 01/07/21 [History] Calcium Carb/Vitamin D3/Vit K1 [Calcium + Vit D & K Chew] 1 tab PO DAILY 01/07/21 [History] Cyclobenzaprine [Flexeril] 10 mg PO DAILY PRN 01/07/21 [History] atorvaSTATin [Lipitor] 20 mg PO DAILY 01/07/21 [History] oxyCODONE 5 mg PO QID PRN 01/07/21 [History] Oxygen Therapy Mode: Room Air Patient Handouts: Acute Kidney Injury, Adult, Home Oxygen Use, Adult, Indwelling Urinary Catheter Care, Adult, [id number], Indwelling Urinary Catheter Insertion, Care After, Acute Urinary Retention, Male, [id number] Referrals: Praneeth Herrmann MD [Primary Care Provider] - 01/16/21 8:30 am (This is arrival time. ) - Discharge Summary/Plan Comment DC Time >30 min.: Yes (54 mins ) - General Info Date of Service: 01/08/21 Functional Status: Reports: Pain Controlled, Tolerating Diet, Ambulating, Urinating, Incentive Spirometry. Denies: New Symptoms - Review of Systems General: Reports: No Symptoms. Denies: Fever, Weakness, Fatigue, Malaise, Chills HEENT: Reports: No Symptoms. Denies: Headaches, Sore Throat Pulmonary: Reports: No Symptoms. Denies: Shortness of Breath, Cough, Sputum, Wheezing Cardiovascular: Reports: No Symptoms. Denies: Chest Pain, Palpitations, Dyspnea on Exertion, Lightheadedness Gastrointestinal: Reports: No Symptoms. Denies: Abdominal Pain, Constipation, Diarrhea, Nausea, Vomiting Genitourinary: Reports: Hematuria. Denies: Burning, Pain Musculoskeletal: Reports: No Symptoms Skin: Reports: No Symptoms. Denies: Cyanosis Neurological: Reports: No Symptoms. Denies: Confusion, Difficulty Walking, Gait Disturbance Psychiatric: Reports: No Symptoms - Patient Data Vitals - Most Recent: Last Vital Signs Temp 98.1 F 01/08/21 09:01 Pulse 90 01/08/21 09:01 Resp 16 01/08/21 09:01 BP 129/48 L 01/08/21 09:04 Pulse Ox 93 L 01/08/21 09:01 Weight - Most Recent: 97.976 kg I&O - Last 24 hours: Intake & Output 01/07/21 01/08/21 01/08/21 22:59 06:59 14:59 Intake Total 320 1291 Output Total 1200 5200 Balance -880 -3909 Lab Results - Last 24 hrs: Laboratory Results - last 24 hr 01/07/21 01/08/21 Range/Units 12:04 05:36 Sodium 147 H (136-145) mEq/L Potassium 4.1 (3.5-5.1) mEq/L Chloride 108 H (98-107) mEq/L Carbon Dioxide 33 H (21-32) mEq/L Anion Gap 10.1 (5-15) BUN 62 H D (7-18) mg/dL Creatinine 5.1 H D (0.7-1.3) mg/dL Est Cr Clr Drug Dosing 11.92 mL/min Estimated GFR (MDRD) 11 (>60) mL/min BUN/Creatinine Ratio 12.2 L (14-18) Glucose 71 (70-99) mg/dL Calcium 8.3 L (8.5-10.1) mg/dL Total Bilirubin 0.4 (0.2-1.0) mg/dL AST 11 L (15-37) U/L ALT 19 (16-63) U/L Alkaline Phosphatase 54 (46-116) U/L Total Protein 6.1 L (6.4-8.2) g/dl Albumin 2.6 L (3.4-5.0) g/dl Globulin 3.5 gm/dL Albumin/Globulin Ratio 0.7 L (1-2) Urine Color Yellow (Yellow) Urine Appearance Clear (Clear) Urine pH 5.5 (5.0-8.0) Ur Specific [place] 1.020 (1.005-1.030) Urine Protein Negative (Negative) Urine Glucose (UA) Negative (Negative) Urine Ketones Negative (Negative) Urine Occult Blood Negative (Negative) Urine Nitrite Negative (Negative) Urine Bilirubin Negative (Negative) Urine Urobilinogen 0.2 (0.2-1.0) Ur Leukocyte Esterase Negative (Negative) Med Orders - Current: Current Medications Acetaminophen (Acetaminophen 325 Mg Tab) 650 mg PO Q4H PRN PRN Reason: Pain (Mild 1-3)/fever Albuterol (Albuterol 6.7 Gm Inhaler) 2 gm INH Q4H PRN PRN Reason: Shortness of Breath Albuterol/Ipratropium (Albuterol/Ipratropium 3.0-0.5 Mg/3 Ml Neb Soln) 3 ml NEB QIDRT PRN PRN Reason: Shortness Of Breath/wheezing Amlodipine Besylate (Amlodipine 5 Mg Tab) 5 mg PO DAILY FOR[facility]LY [facility], [facility] Last Admin: 01/08/21 09:04 Dose: 5 mg Documented by: Bupropion HCl (Bupropion 150 Mg Tab.Sr) 150 mg PO BID [facility], [facility] Last Admin: 01/08/21 09:04 Dose: 150 mg Documented by: Calcium Carbonate (Calcium Carbonate/Vitamin D3 600 Mg-200 Units Tab) 1 tab PO DAILY [facility] Last Admin: 01/08/21 09:04 Dose: 1 tab Documented by: Cyclobenzaprine HCl (Cyclobenzaprine 10 Mg Tab) 10 mg PO DAILY PRN PRN Reason: Muscle Spasm - Painful Docusate Sodium (Docusate Sodium 100 Mg Cap) 100 mg PO Q12H PRN PRN Reason: Constipation Heparin Sodium (Porcine) (Heparin Sodium 5,000 Units/Ml Vial) 5,000 units SUBCUT Q8H [facility], [facility] Last Admin: 01/08/21 09:04 Dose: 5,000 units Documented by: Sodium Chloride (Normal Saline) 1,000 mls @ 75 mls/hr IV ASDIRECTED AMNA Stop: 01/09/21 04:49 Last Admin: 01/08/21 04:58 Dose: 75 mls/hr Documented by: Non-Formulary Medication (Pramipexole) 1 mg PO BID [facility] Ondansetron HCl (Ondansetron 4 Mg/2 Ml Sdv) 4 mg IV Q6H PRN PRN Reason: Nausea/Vomiting Oxycodone HCl (Oxycodone 5 Mg Tab) 5 mg PO QID PRN PRN Reason: Pain Sodium Chloride (Sodium Chloride 0.9% 10 Ml Syringe) 10 ml FLUSH ASDIRECTED PRN PRN Reason: Keep Vein Open Last Admin: 01/07/21 14:03 Dose: 10 ml Documented by: Zolpidem Tartrate (Zolpidem 5 Mg Tab) 5 mg PO BEDTIME PRN PRN Reason: Insomnia Discontinued Medications Non-Formulary Medication (L. Acidophilus/L. Rhamnosus [Probiotic 15 Billion Cell Cap]) 1 cap PO DAILY AMNA - Exam Quality Assessment: Reports: Supplemental Oxygen (2L), Urine Catheter (Placed in ED ), DVT Prophylaxis General: Reports: Alert, Oriented, Cooperative, No Acute Distress HEENT: Reports: Pupils Equal, Pupils Reactive, Mucous Membr. Moist/[place]: Reports: Supple, Trachea Midline Lungs: Reports: Clear to Auscultation, Normal Respiratory Effort Cardiovascular: Reports: Regular Rate, Regular Rhythm GI/Abdominal Exam: Normal Bowel Sounds, Soft, Non-Tender, No Distention (Male) Exam: Deferred Rectal (Males) Exam: Deferred Extremities: Normal Inspection, Normal Range of Motion, Non-Tender, No Pedal Edema Skin: Reports: Warm, Dry, Intact Neurological: Reports: No New Focal Deficit Psy/Mental Status: Reports: Alert, Normal Affect, Normal Mood <Nicolas Blakely - Last Filed: 01/08/21 12:19> Discharge Summary - Referral to Home Health Primary Care Physician: Praneeth Herrmann MD - Patient Summary/Data Consults: Consultations 01/07/21 14:05 Consult to Case Management/Land Leveler [CONS] Routine 01/07/21 14:06 OT Evaluation and Treatment [CONS] Routine PT Evaluation and Treatment [CONS] Routine Hospital Course: I have seen and examined the patient independently of Junito Jaimes PA-C, and have reviewed the case with him. I have reviewed and agree with the plan and care as outlined by him. Please see orders. - Patient Data Vitals - Most Recent: Last Vital Signs Temp 36.7 C 01/08/21 09:01 Pulse 90 01/08/21 09:01 Resp 16 01/08/21 09:01 BP 129/48 L 01/08/21 09:04 Pulse Ox 96 01/08/21 11:00 I&O - Last 24 hours: Intake & Output 01/07/21 01/08/21 01/08/21 22:59 06:59 14:59 Intake Total 320 1291 Output Total 1200 5200 Balance -880 -3909 Lab Results - Last 24 hrs: Laboratory Results - last 24 hr 01/08/21 Range/Units 05:36 Sodium 147 H (136-145) mEq/L Potassium 4.1 (3.5-5.1) mEq/L Chloride 108 H (98-107) mEq/L Carbon Dioxide 33 H (21-32) mEq/L Anion Gap 10.1 (5-15) BUN 62 H D (7-18) mg/dL Creatinine 5.1 H D (0.7-1.3) mg/dL Est Cr Clr Drug Dosing 11.92 mL/min Estimated GFR (MDRD) 11 (>60) mL/min BUN/Creatinine Ratio 12.2 L (14-18) Glucose 71 (70-99) mg/dL Calcium 8.3 L (8.5-10.1) mg/dL Total Bilirubin 0.4 (0.2-1.0) mg/dL AST 11 L (15-37) U/L ALT 19 (16-63) U/L Alkaline Phosphatase 54 (46-116) U/L Total Protein 6.1 L (6.4-8.2) g/dl Albumin 2.6 L (3.4-5.0) g/dl Globulin 3.5 gm/dL Albumin/Globulin Ratio 0.7 L (1-2) Med Orders - Current: Current Medications Acetaminophen (Acetaminophen 325 Mg Tab) 650 mg PO Q4H PRN PRN Reason: Pain (Mild 1-3)/fever Albuterol (Albuterol 6.7 Gm Inhaler) 2 gm INH Q4H PRN PRN Reason: Shortness of Breath Albuterol/Ipratropium (Albuterol/Ipratropium 3.0-0.5 Mg/3 Ml Neb Soln) 3 ml NEB QIDRT PRN PRN Reason: Shortness Of Breath/wheezing Amlodipine Besylate (Amlodipine 5 Mg Tab) 5 mg PO DAILY [facility] Last Admin: 01/08/21 09:04 Dose: 5 mg Documented by: Bupropion HCl (Bupropion 150 Mg Tab.Sr) 150 mg PO BID [facility] Last Admin: 01/08/21 09:04 Dose: 150 mg Documented by: Calcium Carbonate (Calcium Carbonate/Vitamin D3 600 Mg-200 Units Tab) 1 tab PO DAILY [facility] Last Admin: 01/08/21 09:04 Dose: 1 tab Documented by: Cyclobenzaprine HCl (Cyclobenzaprine 10 Mg Tab) 10 mg PO DAILY PRN PRN Reason: Muscle Spasm - Painful Docusate Sodium (Docusate Sodium 100 Mg Cap) 100 mg PO Q12H PRN PRN Reason: Constipation Heparin Sodium (Porcine) (Heparin Sodium 5,000 Units/Ml Vial) 5,000 units SUBCUT Q8H [facility] Last Admin: 01/08/21 09:04 Dose: 5,000 units Documented by: Sodium Chloride (Normal Saline) 1,000 mls @ 75 mls/hr IV ASDIRECTED [facility], [facility] Stop: 01/09/21 04:49 Last Admin: 01/08/21 04:58 Dose: 75 mls/hr Documented by: Non-Formulary Medication (Pramipexole) 1 mg PO BID [facility] Ondansetron HCl (Ondansetron 4 Mg/2 Ml Sdv) 4 mg IV Q6H PRN PRN Reason: Nausea/Vomiting Oxycodone HCl (Oxycodone 5 Mg Tab) 5 mg PO QID PRN PRN Reason: Pain Sodium Chloride (Sodium Chloride 0.9% 10 Ml Syringe) 10 ml FLUSH ASDIRECTED PRN PRN Reason: Keep Vein Open Last Admin: 01/07/21 14:03 Dose: 10 ml Documented by: Zolpidem Tartrate (Zolpidem 5 Mg Tab) 5 mg PO BEDTIME PRN PRN Reason: Insomnia Discontinued Medications Non-Formulary Medication (L. Acidophilus/L. Rhamnosus [Probiotic 15 Billion Cell Cap]) 1 cap PO DAILY [facility]NA
[2021-01-08] MEDS ORDERED: Pramipexole 0.5 MG Tab PO SCH (12:45)
== END 2021-01-08 16:55 | disposition home or self-care (01) ==
LOC: JD.ED 11:35 → JD.MS 13:59
PROVIDERS: ADMIT Internal Medicine; ATTEND Internal Medicine
DX: N13.8 Other obstructive and reflux uropathy (principal); N17.9 Acute kidney failure, unspecified; N40.1 Benign prostatic hyperplasia with lower urinary tract symptoms; R33.9 Retention of urine, unspecified; G47.33 Obstructive sleep apnea (adult) (pediatric); J44.9 Chronic obstructive pulmonary disease, unspecified; R09.02 Hypoxemia; G47.00 Insomnia, unspecified; I10 Essential (primary) hypertension; E78.5 Hyperlipidemia, unspecified; M1A.9XX0 Chronic gout, unspecified, without tophus (tophi); R60.9 Edema, unspecified; Z99.81 Dependence on supplemental oxygen; Z99.89 Dependence on other enabling machines and devices; Z98.84 Bariatric surgery status; Z91.19 Patient's noncompliance with other medical treatment and regimen; Z97.8 Presence of other specified devices; Z98.890 Other specified postprocedural states; Z79.899 Other long term (current) drug therapy; Z87.891 Personal history of nicotine dependence
CPT/HCPCS: 36415; 51702; 80053; 81003; 94760; 96372; 97162-GP; 97530-GP; 99285-25; A9270-GY; G0378; J1644; J7030

== ENCOUNTER 2021-02-12 10:18 | Emergency (ER) | payer MEDICARE, MEDICAID ==
--- NOTE | 2021-02-12 13:09 | EDM.PDOC ---
ED HPI GENERAL MEDICAL PROBLEM - General Chief Complaint: Genitourinary Problem Stated Complaint: CATHETER COMPLAINT Time Seen by Provider: 02/12/21 11:06 Source of Information: Reports: Patient History Limitations: Reports: No Limitations - History of Present Illness INITIAL COMMENTS - FREE TEXT/NARRATIVE: 75-year-old male presents the emergency department today with complaints of his Ramos catheter leaking. Patient reports that he has catheter in place at this time due to issues of urinary retention status post cervical spine surgery. Patient states that he has had issues with surgery in the past that have resulted in incontinence as well as urinary retention. He has had catheters intermittently status post surgeries. Of the most recent, the patient had a catheter placed and it has been in place for approximately a month to 6 weeks after having spinal surgery. He states that yesterday the bag came disconnected and leaked all over his bed after waking, so he secured the bag with superglue. He states that today he got up got dressed and went to work and once he got to work the entire front and backside of his pants were saturated with urine. He is unsure of where the catheter could be leaking from. Patient denies any recent fever, chills, nausea, vomiting or diarrhea. He denies any abdominal pain. He states prior to this the catheter had been working just fine. He does have a follow-up appointment scheduled with his urologist, Dr. Madrigal, next week. Patient is requesting that we take the Ramos catheter out and see if he is able to void without it. - Related Data Allergies Allergy/AdvReac Type Severity Reaction Status Date / Time No Known Allergies Allergy Verified 02/12/21 10:40 Home Meds: Home Meds Tamsulosin [Flomax] 0.4 mg PO DAILY 07/28/19 [History] Furosemide 80 mg PO DAILY 12/29/20 [History] L. Acidophilus/L. Rhamnosus [Probiotic 15 Billion Cell Cap] 1 cap PO DAILY 12/29/20 [History] Meloxicam 7.5 mg PO DAILY 12/29/20 [History] Potassium Chloride 20 meq PO DAILY 12/29/20 [History] Pramipexole [Mirapex] 1 mg PO BID 12/29/20 [History] Terazosin [Hytrin] 5 mg PO BID 12/29/20 [History] Zolpidem [Ambien] 5 mg PO BEDTIME PRN 12/29/20 [History] allopurinoL [Zyloprim] 100 mg PO DAILY 12/29/20 [History] amLODIPine [Norvasc] 5 mg PO DAILY 12/29/20 [History] buPROPion [Wellbutrin SR] 150 mg PO BID 12/29/20 [History] metOLazone [Metolazone] 5 mg PO DAILY 12/29/20 [History] Acetaminophen [Pain Reliever] 500 mg PO Q8H PRN 01/07/21 [History] Albuterol Sulfate [Albuterol Sulfate Hfa] 2 puff INH Q4H PRN 01/07/21 [History] Calcium Carb/Vitamin D3/Vit K1 [Calcium + Vit D & K Chew] 1 tab PO DAILY 01/07/21 [History] Cyclobenzaprine [Flexeril] 10 mg PO DAILY PRN 01/07/21 [History] atorvaSTATin [Lipitor] 20 mg PO DAILY 01/07/21 [History] oxyCODONE 5 mg PO QID PRN 01/07/21 [History] Past Medical History HEENT History: Reports: Impaired Vision Cardiovascular History: Reports: Hypertension Respiratory History: Reports: COPD Gastrointestinal History: Reports: None Genitourinary History: Reports: BPH, Retention, Urinary Musculoskeletal History: Reports: Fracture Neurological History: Reports: Head Trauma Other Neuro History: traumatic brain bleed Psychiatric History: Reports: None Endocrine/Metabolic History: Reports: Obesity/BMI 30+ Hematologic History: Reports: None Immunologic History: Reports: None Oncologic (Cancer) History: Reports: None Dermatologic History: Reports: None - Infectious Disease History Infectious Disease History: Reports: Chicken Pox, Measles, Mumps - Past Surgical History HEENT Surgical History: Reports: Eye Surgery Other HEENT Surgeries/Procedures: tightened up bottom lids, wears glasses GI Surgical History: Reports: Appendectomy, Bariatric Procedure Neurological Surgical History: Reports: C-Spine, Lumbar Spine Musculoskeletal Surgical History: Reports: Other (See Below) Other Musculoskeletal Surgeries/Procedures:: neck and back surgery Social & Family History - Family History Family Medical History: No Pertinent Family History - Tobacco Use Tobacco Use Status *Q: Former Tobacco User Years of Tobacco use: 40 Used Tobacco, but Quit: Yes Month/Year Tobacco Last Used: 01/2021 - Caffeine Use Caffeine Use: Reports: Energy Drinks, Soda Caffeine Use Comment: very rarely - Recreational Drug Use Recreational Drug Use: No - Living Situation & Occupation Living situation: Reports: , with Spouse Occupation: Unemployed ED ROS GENERAL - Review of Systems Review Of Systems: Comprehensive ROS is negative, except as noted in HPI. ED EXAM, RENAL/ - Physical Exam Exam: See Below Exam Limited By: No Limitations General Appearance: Alert, WD/WN, No Apparent Distress Ears: Normal External Exam, Hearing Grossly Normal Nose: Normal Inspection Throat/Mouth: Normal Inspection, Normal Lips, Normal Voice, No Airway Compromise Head: Atraumatic Neck: Normal Inspection, Supple Respiratory/Chest: No Respiratory Distress, Lungs Clear, Normal Breath Sounds, No Accessory Muscle Use, Chest Non-Tender Cardiovascular: Normal Peripheral Pulses, Regular Rate, Rhythm, No Edema, No Murmur GI/Abdominal: Normal Bowel Sounds, Soft, Non-Tender, No Distention (Male) Exam: Normal Inspection. No: Suprapubic Fullness, Urethral Discharge Rectal (Males) Exam: Deferred Back Exam: Normal Inspection Extremities: Normal Inspection, Normal Range of Motion, Non-Tender, No Pedal Edema, Normal Capillary Refill Neurological: Alert, Oriented, Normal Cognition Psychiatric: Normal Affect, Normal Mood Skin Exam: Warm, Dry, Intact, Normal Color, No Rash Lymphatic: No Adenopathy Course - Vital Signs Text/Narrative:: As stated above patient with a history of intermittent Ramos catheter in place. Currently has a Ramos catheter place and presents with complaints of it leaking however he is not sure where it is leaking from. He states he did get dressed for work this morning and once he got to work the front and backside of his pants were saturated with urine. All attachments seem to be secure at the time. He is requesting that we discontinue the Ramos catheter and see if he would be able to void without it in place. I have I have notified him that even if he is able to void once he leaves here today that does not assure us that within a few hours time he want to get have urinary retention and have to return to the emergency department to have it replaced. The patient states he does understand this. I have asked nursing staff to discontinue the Ramos catheter at this time. We will allow the patient to drink plenty of fluids to see if he is able to void on his own. Last Recorded V/S: Last Vital Signs Temp 98.9 F 02/12/21 10:31 Pulse 90 02/12/21 10:31 Resp 18 02/12/21 10:31 BP 140/71 02/12/21 10:31 Pulse Ox 96 02/12/21 10:31 - Orders/Labs/Meds Orders: Active Orders 24 hr Category Date Time Status Post Void Residual [OM.PC] Routine Oth 02/12/21 14:02 Ordered - Re-Assessments/Exams Free Text/Narrative Re-Assessment/Exam: 02/12/21 13:24 I just went in to check with the patient to see if he has been able to void. He is standing at the bedside with the urinal in place stating he is attempting to void. I have notified nursing staff that we should obtain a post void residual bladder scan on the patient to see how successful this was. 02/12/21 14:23 Patient was unable to void. Nursing did scan his bladder and they reported to me that he had just over 800 mL of urine in his bladder. Ramos catheter was placed and is draining pale yellow urine. He will be discharged home with the catheter and leg bag in place. He tells me he has an appointment already scheduled with his urologist for next week. Departure - Departure Time of Disposition: 14:24 Disposition: Home, Self-Care 01 Condition: Good Clinical Impression: Retention of urine - Discharge Information Referrals: Praneeth Herrmann MD [Primary Care Provider] - Forms: ED Department Discharge Additional Instructions: You were seen in the emergency department with complaints of your Ramos catheter leaking this morning. We did discontinue the Ramos catheter and attempt to allow you time to void however you were unable. Ramos catheter was replaced and urine was draining without complication. A leg bag has been placed on your catheter. Keep this in place until you follow-up with your urologist as scheduled next week. Should you have any problems prior to that do not hesitate returning to the emergency department. Sepsis Event Note (ED) - Evaluation Sepsis Screening Result: No Definite Risk - Focused Exam Vital Signs: Vital Signs Temp Pulse Resp BP Pulse Ox 02/12/21 10:31 98.9 F 90 18 140/71 96 - My Orders Last 24 Hours: My Active Orders 02/12/21 14:02 Post Void Residual [OM.PC] Routine - Assessment/Plan Last 24 Hours: My Active Orders 02/12/21 14:02 Post Void Residual [OM.PC] Routine
== END 2021-02-12 15:00 | disposition home or self-care (01) ==
LOC: JD.ED 10:18
DX: R33.9 Retention of urine, unspecified (principal); J44.9 Chronic obstructive pulmonary disease, unspecified; I10 Essential (primary) hypertension; E66.9 Obesity, unspecified; Z68.30 Body mass index [BMI] 30.0-30.9, adult; Z87.891 Personal history of nicotine dependence
CPT/HCPCS: 51702; 99283; 99283-25

== ENCOUNTER 2021-02-21 21:16 | Inpatient (IN) | payer MEDICARE, MEDICAID ==
[2021-02-21] MEDS ORDERED: Pantoprazole 40 MG Vial IVPUSH STA (22:50)
--- NOTE | 2021-02-21 22:56 | EDM.PDOC ---
ED HPI GENERAL MEDICAL PROBLEM - General Chief Complaint: Gastrointestinal Problem Stated Complaint: WEAK/DIZZY/ STOOL DISCOLOR Time Seen by Provider: 02/21/21 22:22 Source of Information: Reports: Patient History Limitations: Reports: No Limitations - History of Present Illness INITIAL COMMENTS - FREE TEXT/NARRATIVE: Mr. Juarez is a very pleasant 75-year-old gentleman with a past medical history significant for a gastric bypass in 2011, who now presents to the ED stating that he developed some nausea and general weakness around 14:00 this afternoon, then a black bowel movement around 15:00. He states that he has had 2 additional black bowel movements since. He denies having any nausea or abdominal pain. No prior similar symptoms. He did not take any [id number] ter or home remedies prior to coming to the ED. The patient denies taking any Pepto-Bismol recently. He denies eating any dark or red-colored foods, such as cherries or red wine. The patient's medication list indicates that he takes Mobic 7.5 mg once daily. The patient states that he has never had an EGD, although he has had 2 colonoscopies, revealing only colon polyps. Here in the ED, the patient's initial BP is slightly depressed at 133/57. He is otherwise hemodynamically stable, afebrile, saturating 95% on room air. He appears to be relatively comfortable, in no acute distress. Prior to this afternoon, the patient denies having a recent fever, chills, sore throat, ear pain, nasal or sinus congestion, cough, dyspnea, chest pain, palpitations, nausea, vomiting, constipation, diarrhea, abdominal pain, urinary symptoms, recent weight gain or weight loss, recent bloody bowel movements or black bowel movements, recent joint aches, headaches, or rashes. The patient's PCP is Dr. Praneeth Herrmann. His Urologist is Dr. Hero Madrigal. His Neurosurgeon is Dr. Jet Garrett. He has received 2 COVID vaccinations. - Related Data Allergies Allergy/AdvReac Type Severity Reaction Status Date / Time No Known Allergies Allergy Verified 02/21/21 21:31 Home Meds: Home Meds Tamsulosin [Flomax] 0.4 mg PO DAILY 07/28/19 [History] Furosemide 80 mg PO DAILY 12/29/20 [History] L. Acidophilus/L. Rhamnosus [Probiotic 15 Billion Cell Cap] 1 cap PO DAILY 12/29/20 [History] Meloxicam 7.5 mg PO DAILY 12/29/20 [History] Potassium Chloride 20 meq PO DAILY 12/29/20 [History] Pramipexole [Mirapex] 1 mg PO BID 12/29/20 [History] Terazosin [Hytrin] 5 mg PO BID 12/29/20 [History] Zolpidem [Ambien] 5 mg PO BEDTIME PRN 12/29/20 [History] allopurinoL [Zyloprim] 100 mg PO DAILY 12/29/20 [History] amLODIPine [Norvasc] 5 mg PO DAILY 12/29/20 [History] buPROPion [Wellbutrin SR] 150 mg PO BID 12/29/20 [History] metOLazone [Metolazone] 5 mg PO DAILY 12/29/20 [History] Acetaminophen [Pain Reliever] 500 mg PO Q8H PRN 01/07/21 [History] Albuterol Sulfate [Albuterol Sulfate Hfa] 2 puff INH Q4H PRN 01/07/21 [History] Calcium Carb/Vitamin D3/Vit K1 [Calcium + Vit D & K Chew] 1 tab PO DAILY 01/07/21 [History] Cyclobenzaprine [Flexeril] 10 mg PO DAILY PRN 01/07/21 [History] atorvaSTATin [Lipitor] 20 mg PO DAILY 01/07/21 [History] oxyCODONE 5 mg PO QID PRN 01/07/21 [History] Past Medical History HEENT History: Reports: Impaired Vision (wears glasses) Cardiovascular History: Reports: High Cholesterol, Hypertension Respiratory History: Reports: COPD Gastrointestinal History: Reports: Colon Polyp Genitourinary History: Reports: BPH, Chronic Renal Insuffiency, Retention, Urinary Musculoskeletal History: Reports: Fracture (left wrist) 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) Psychiatric History: Reports: Depression Endocrine/Metabolic History: Reports: Diabetes, Type II (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 gastric bypass 2011), Obesity/BMI 30+ - Infectious Disease History Infectious Disease History: Reports: Chicken Pox, Measles, Mumps - Past Surgical History HEENT Surgical History: Reports: Eye Surgery (bilateral lower eyelid lift) GI Surgical History: Reports: Appendectomy, Bariatric Procedure (gastric bypass 08/17/2015), Colonoscopy (x 2) Neurological Surgical History: Reports: C-Spine (ACDF), Lumbar Spine (laminectomy, L5-L7 fusion) Social & Family History - Tobacco Use Tobacco Use Status *Q: Current Every Day Tobacco User Years of Tobacco use: 63 Packs/Tins Daily: 0.2 Packs/Tins Daily Comment: Down from 4 ppd Tobacco Use Comment: Started smoking at 12 yrs old - Caffeine Use Caffeine Use: Reports: Energy Drinks, Soda Caffeine Use Comment: very rarely - Alcohol Use Alcohol Use History: Yes Alcohol Use Frequency: Rarely - Recreational Drug Use Recreational Drug Use: No - Living Situation & Occupation Living situation: Reports: , Alone Occupation: Retired ED ROS GENERAL - Review of Systems Review Of Systems: Comprehensive ROS is negative, except as noted in HPI. ED EXAM, GI/ABD - Physical Exam Exam: See Below Exam Limited By: No Limitations General Appearance: Alert, WD/WN, No Apparent Distress Eyes: Bilateral: Normal Appearance, EOMI Ears: Normal External Exam, Hearing Grossly Normal Nose: Normal Inspection Throat/Mouth: Normal Inspection, Normal Lips, Normal Voice, No Airway Compromise Head: Atraumatic, Normocephalic Neck: Normal Inspection, Full Range of Motion Respiratory/Chest: No Respiratory Distress, Lungs Clear, Normal Breath Sounds, No Accessory Muscle Use Cardiovascular: Normal Peripheral Pulses, Regular Rate, Rhythm, No Edema, No Gallop, No JVD, No Murmur, No Rub GI/Abdominal Exam: Normal Bowel Sounds, Soft, Non-Tender, No Organomegaly, No Distention, No Abnormal Bruit, No Mass Rectal (Males) Exam: Normal Rectal Tone, Bloody Stool (maroon), Heme + Stool (grossly) Back Exam: Normal Inspection, Full Range of Motion Extremities: Normal Inspection, Normal Range of Motion, No Pedal Edema, Normal Capillary Refill Neurological: Alert, Oriented, Normal Cognition, No Motor/Sensory Deficits Psychiatric: Normal Affect Skin Exam: Warm, Dry, Intact, Normal Color, No Rash #1 Interpretation EKG Date: 02/21/21 Time: 23:06 Rhythm: NSR Rate (Beats/Min): 91 [place]: Normal P-Wave: Present QRS: RBBB (Early transition) ST-T: Normal QT: Prolonged (QTc 487 ms) Comparison: Change From Previous EKG (RBBB, early transition, and QTc prolongation new since 08/24/2017) Course - Vital Signs Last Recorded V/S: Last Vital Signs Temp 37.2 C 02/21/21 21:26 Pulse 94 02/21/21 21:26 Resp 18 02/21/21 21:26 BP 123/57 L 02/21/21 21:26 Pulse Ox 95 02/21/21 21:26 Orthostatic Blood Pressure [ 86/50 Sitting] Orthostatic Blood Pressure [ 112/64 Supine] - Orders/Labs/Meds Orders: Active Orders 24 hr Category Date Time Status EKG Documentation Completion [RC] STAT Care 02/21/21 22:48 Active Hemoccult [Fecal Occult Blood Collection] [RC] Care 02/21/21 22:53 Active ASDIRECTED Orthostatic Vital Signs [RC] STAT Care 02/21/21 22:48 Active Orthostatic Vital Signs [RC] STAT Care 02/21/21 23:41 Active CORONAVIRUS COVID-19 MARCEL [MOLEC] Stat Lab 02/22/21 00:05 Ordered FRESH FROZEN PLASMA [BBK] Stat Lab 02/21/21 21:57 Results RED BLOOD CELLS LP [BBK] Stat Lab 02/21/21 21:57 Results TYPE AND SCREEN [BBK] Stat Lab 02/21/21 21:57 Results Pantoprazole [ProTONIX IV] 80 mg Med 02/21/21 23:00 Active Sodium Chloride 0.9% [Normal Saline] 100 ml IV Q10H Sodium Chloride 0.9% [Normal Saline] 1,000 ml Med 02/21/21 23:40 Active IV ONETIME Transfuse PRBC [Transfuse Red Blood Cells] [COMM] Stat Oth 02/21/21 23:41 Ordered Medication Orders Pantoprazole Sodium 80 mg/ (Sodium Chloride) 100 mls @ 8 mls/hr IV Q10H [facility] Last Admin: 02/21/21 23:14 Dose: 8 mls/hr Documented by: LYUBOV Sodium Chloride (Normal Saline) 1,000 mls @ 999 mls/hr IV ONETIME ONE Stop: 02/22/21 00:40 Last Admin: 02/21/21 23:57 Dose: 999 mls/hr Documented by: RUBEN Labs: Laboratory Tests 02/21/21 02/21/21 02/21/21 Range/Units 21:57 21:57 21:57 WBC 8.02 (4.23-9.07) K/mm3 RBC 2.62 L (4.63-6.08) M/mm3 Hgb 7.1 L* D (13.7-17.5) gm/dl Hct 23.9 L (40.1-51.0) % MCV 91.2 (79.0-92.2) fl MCH 27.1 (25.7-32.2) pg MCHC 29.7 L (32.2-35.5) g/dl RDW Std Deviation 56.4 H (35.1-43.9) fL Plt Count 168 D (163-337) K/mm3 MPV 11.2 (9.4-12.3) fl Neutrophils % (Manual) 76 H (40-60) % Band Neutrophils % 0 (0-10) % Lymphocytes % (Manual) 14 L (20-40) % Atypical Lymphs % 0 % Monocytes % (Manual) 9 (2-10) % Eosinophils % (Manual) 1 (0.8-7.0) % Basophils % (Manual) 0 L (0.2-1.2) Toxic Granulation 2+ moderate Platelet Estimate Adequate Hypochromasia 2+ moderate Poikilocytosis Anisocytosis 2+ moderate Ovalocytes 1+ slight RBC Morph Comment Not Reportable PT (9.7-12.0) SECONDS INR APTT (21.7-31.4) SECONDS Sodium 143 (136-145) mEq/L Potassium 3.8 (3.5-5.1) mEq/L Chloride 104 (98-107) mEq/L Carbon Dioxide 35 H (21-32) mEq/L Anion Gap 7.8 (5-15) BUN 76 H (7-18) mg/dL Creatinine 3.0 H D (0.7-1.3) mg/dL Est Cr Clr Drug Dosing 20.27 mL/min Estimated GFR (MDRD) 20 (>60) mL/min BUN/Creatinine Ratio 25.3 H (14-18) Glucose 130 H (70-99) mg/dL Calcium 8.1 L (8.5-10.1) mg/dL Total Bilirubin 0.4 (0.2-1.0) mg/dL AST 19 (15-37) U/L ALT 26 (16-63) U/L Alkaline Phosphatase 45 L (46-116) U/L Total Protein 5.6 L (6.4-8.2) g/dl Albumin 2.7 L (3.4-5.0) g/dl Globulin 2.9 gm/dL Albumin/Globulin Ratio 0.9 L (1-2) Blood Type A POSITIVE Gel Antibody Screen Negative Crossmatch See Detail 02/21/21 Range/Units 22:50 WBC (4.23-9.07) K/mm3 RBC (4.63-6.08) M/mm3 Hgb (13.7-17.5) gm/dl Hct (40.1-51.0) % MCV (79.0-92.2) fl MCH (25.7-32.2) pg MCHC (32.2-35.5) g/dl RDW Std Deviation (35.1-43.9) fL Plt Count (163-337) K/mm3 MPV (9.4-12.3) fl Neutrophils % (Manual) (40-60) % Band Neutrophils % (0-10) % Lymphocytes % (Manual) (20-40) % Atypical Lymphs % % Monocytes % (Manual) (2-10) % Eosinophils % (Manual) (0.8-7.0) % Basophils % (Manual) (0.2-1.2) Toxic Granulation Platelet Estimate Hypochromasia Poikilocytosis Anisocytosis Ovalocytes RBC Morph Comment PT 11.4 (9.7-12.0) SECONDS INR 1.07 APTT 25.6 (21.7-31.4) SECONDS Sodium (136-145) mEq/L Potassium (3.5-5.1) mEq/L Chloride (98-107) mEq/L Carbon Dioxide (21-32) mEq/L Anion Gap (5-15) BUN (7-18) mg/dL Creatinine (0.7-1.3) mg/dL Est Cr Clr Drug Dosing mL/min Estimated GFR (MDRD) (>60) mL/min BUN/Creatinine Ratio (14-18) Glucose (70-99) mg/dL Calcium (8.5-10.1) mg/dL Total Bilirubin (0.2-1.0) mg/dL AST (15-37) U/L ALT (16-63) U/L Alkaline Phosphatase (46-116) U/L Total Protein (6.4-8.2) g/dl Albumin (3.4-5.0) g/dl Globulin gm/dL Albumin/Globulin Ratio (1-2) Blood Type Gel Antibody Screen Crossmatch Meds: Medications Generic Name Dose Route Start Last Admin Trade Name Shade PRN Reason Stop Dose Admin Pantoprazole Sodium 80 mg/ 100 mls @ 8 mls/hr 02/21/21 23:00 02/21/21 23:14 Sodium Chloride IV 8 mls/hr Q10H AMNA Administration Sodium Chloride 1,000 mls @ 999 mls/hr 02/21/21 23:40 02/21/21 23:57 Normal Saline IV 02/22/21 00:40 999 mls/hr ONETIME ONE Administration Discontinued Medications Generic Name Dose Route Start Last Admin Trade Name Shade PRN Reason Stop Dose Admin Sodium Chloride 1,000 mls @ 150 mls/hr 02/21/21 23:00 02/21/21 23:12 Normal Saline IV 150 mls/hr ASDIRECTED AMNA Administration Pantoprazole Sodium 80 mg 02/21/21 22:50 02/21/21 23:14 Pantoprazole 40 Mg Vial IVPUSH 02/21/21 22:51 80 mg ONETIME STA Administration - Re-Assessments/Exams Free Text/Narrative Re-Assessment/Exam: 02/21/21 22:52 As above, the patient developed some nausea and generalized weakness around 14:00 this afternoon, then had a black bowel movement around 15:00. He states that he has had 2 additional black bowel movements since. He denies having abdominal pain, and his abdomen is nontender to palpation, however, on rectal examination, his stool is maroon and grossly heme positive. His symptoms are more consistent with a lower GI bleed, however, he has a history of a gastric bypass, and he is on meloxicam 7.5 mg daily, raising the possibility of an upper GI bleed at the anastomosis. I have ordered a work-up that includes orthostat ics, several blood tests, and an ECG. In the meantime, the patient will be given pantoprazole 80 mg IVP, followed by a pantoprazole drip at 8 mg/h. He will also be given some IV fluid, however, if he is orthostatic, I will order a fluid bolus. 02/21/21 23:48 The patient is orthostatic. The patient's CBC is remarkable for an H/H of 7.1/23.9, with the remainder of his CBC being unremarkable. His CMP is remarkable for a bicarbonate elevated at 35, and a BUN/Cr elevated at 76/3.0. He has mild hyperglycemia of 130, with remainder of his CMP being unremarkable. His coags are within normal limits. Review of prior labs finds that the patient's H/H was 10.3/35.4 on 01/10/2021. His BUN/Cr were 62/5.1 on 01/08/2021. The patient's orthostasis and anemia increase the likelihood that he is suffering from an upper GI bleed. I have ordered a bolus of NS, 2 units of PRBCs, and 2 units of FFP. 02/22/21 00:11 Test results discussed with the patient and a woman who has since come to his bedside. I am recommending admission to the hospital - he agreed. 02/22/21 00:[address] Gama, Hospitalist, at 00:13. He accepted the patient for admission to the ICU. Departure - Departure Time of Disposition: 00:17 Disposition: Admitted As Inpatient 65 Condition: Fair Clinical Impression: GI bleed, Severe anemia, Chronic renal insufficiency - Discharge Information *PRESCRIPTION DRUG MONITORING PROGRAM REVIEWED*: Not Applicable *COPY OF PRESCRIPTION DRUG MONITORING REPORT IN PATIENT CHITO: Not Applicable Referrals: Praneeth Herrmann MD [Primary Care Provider] - Patrice Garrett MD [Ordering Only Provider] - Hero Madrigal MD [Ordering Only Provider] - Forms: ED Department Discharge Sepsis Event Note (ED) - Evaluation Sepsis Screening Result: Possible Sepsis Risk - Focused Exam Vital Signs: Vital Signs Temp Pulse Resp BP Pulse Ox 02/21/21 21:26 37.2 C 94 18 123/57 L 95 - My Orders Last 24 Hours: My Active Orders 02/21/21 21:57 FRESH FROZEN PLASMA [BBK] Stat RED BLOOD CELLS LP [BBK] Stat TYPE AND SCREEN [BBK] Stat 02/21/21 22:48 EKG Documentation Completion [RC] STAT Orthostatic Vital Signs [RC] STAT 02/21/21 22:53 Hemoccult [Fecal Occult Blood Collection] [RC] ASDIRECTED 02/21/21 23:00 Pantoprazole [ProTONIX IV] 80 mg Sodium Chloride 0.9% [Normal Saline] 100 ml IV Q10H 02/21/21 23:40 Sodium Chloride 0.9% [Normal Saline] 1,000 ml IV ONETIME 02/21/21 23:41 Orthostatic Vital Signs [RC] STAT Transfuse PRBC [Transfuse Red Blood Cells] [COMM] Stat 02/22/21 00:05 CORONAVIRUS COVID-19 MARCEL [MOLEC] Stat - Assessment/Plan Last 24 Hours: My Active Orders 02/21/21 21:57 FRESH FROZEN PLASMA [BBK] Stat RED BLOOD CELLS LP [BBK] Stat TYPE AND SCREEN [BBK] Stat 02/21/21 22:48 EKG Documentation Completion [RC] STAT Orthostatic Vital Signs [RC] STAT 02/21/21 22:53 Hemoccult [Fecal Occult Blood Collection] [RC] ASDIRECTED 02/21/21 23:00 Pantoprazole [ProTONIX IV] 80 mg Sodium Chloride 0.9% [Normal Saline] 100 ml IV Q10H 02/21/21 23:40 Sodium Chloride 0.9% [Normal Saline] 1,000 ml IV ONETIME 02/21/21 23:41 Orthostatic Vital Signs [RC] STAT Transfuse PRBC [Transfuse Red Blood Cells] [COMM] Stat 02/22/21 00:05 CORONAVIRUS COVID-19 MARCEL [MOLEC] Stat
[2021-02-21] MEDS ORDERED: Sodium Chloride 0.9% 1,000 ML IV SCH (23:00)
[2021-02-21] MEDS: Pantoprazole 80 MG in Sodium Chloride 0.9% 100 ML IV SCH (23:14)
[2021-02-21] MEDS ORDERED: Sodium Chloride 0.9% 1,000 ML IV ONE (23:40)
[2021-02-22] MEDS: Sodium Chloride 0.9% 250 ML IV SCH ×2 (00:55→20:40)
[2021-02-22] MEDS ORDERED: Ondansetron 4 MG/2 ML SDV IV PRN (00:56)
--- NOTE | 2021-02-22 01:10 | PCM.HP.2 ---
H&P History of Present Illness - General Date of Service: 02/22/21 Admit Problem/Dx: Admission Diagnosis/Problem Admission Diagnosis/Problem GI bleed requiring more than 4 units of blood in 24 hours, ICU, or surgery Source of Information: Patient - History of Present Illness Initial Comments - Free Text/Narative: This is a 75M with PMHx noted below including hx of Paulina-en-y presenting for evaluation of melena. Earlier in the day the patient noted dark stool. He endo rsed nausea but no hematemesis. He is not on anticoagulation but takes NSAIDS. He denies chest pain, sob, abdominal pain, fever. He denies vomiting. He felt dizzy and weak prior to arrival to the ED. In the ED the patient's hemoglobin was noted to be 7.1. He was given 2 units of PRBC and FFP and admitted to the ICU for further evaluation. Bilateral Leg Pain Score (Numeric/FACES): 10 - Related Data Allergies/Adverse Reactions: Allergies Allergy/AdvReac Type Severity Reaction Status Date / Time No Known Allergies Allergy Verified 02/22/21 06:26 Home Medications: Home Meds Tamsulosin [Flomax] 0.4 mg PO DAILY 07/28/19 [History] Furosemide 80 mg PO DAILY 12/29/20 [History] L. Acidophilus/L. Rhamnosus [Probiotic 15 Billion Cell Cap] 1 cap PO DAILY 12/29/20 [History] Meloxicam 7.5 mg PO DAILY 12/29/20 [History] Potassium Chloride 20 meq PO DAILY 12/29/20 [History] Pramipexole [Mirapex] 1 mg PO BID 12/29/20 [History] Terazosin [Hytrin] 5 mg PO BID 12/29/20 [History] Zolpidem [Ambien] 5 mg PO BEDTIME PRN 12/29/20 [History] allopurinoL [Zyloprim] 100 mg PO DAILY 12/29/20 [History] amLODIPine [Norvasc] 5 mg PO DAILY 12/29/20 [History] buPROPion [Wellbutrin SR] 150 mg PO BID 12/29/20 [History] metOLazone [Metolazone] 5 mg PO DAILY 12/29/20 [History] Acetaminophen [Pain Reliever] 500 mg PO Q8H PRN 01/07/21 [History] Albuterol Sulfate [Albuterol Sulfate Hfa] 2 puff INH Q4H PRN 01/07/21 [History] Calcium Carb/Vitamin D3/Vit K1 [Calcium + Vit D & K Chew] 1 tab PO DAILY 01/07/21 [History] Cyclobenzaprine [Flexeril] 10 mg PO DAILY PRN 01/07/21 [History] atorvaSTATin [Lipitor] 20 mg PO DAILY 01/07/21 [History] oxyCODONE 5 mg PO QID PRN 01/07/21 [History] Past Medical History HEENT History: Reports: Impaired Vision (wears glasses) Cardiovascular History: Reports: High Cholesterol, Hypertension Respiratory History: Reports: COPD Gastrointestinal History: Reports: Colon Polyp Genitourinary History: Reports: BPH, Chronic Renal Insuffiency, Retention, Urinary Musculoskeletal History: Reports: Fracture (left wrist) 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 Psychiatric History: Reports: Depression Endocrine/Metabolic History: Reports: Diabetes, Type II (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 gastric bypass 2011), Obesity/BMI 30+ Hematologic History: Reports: None Immunologic History: Reports: None Oncologic (Cancer) History: Reports: None Dermatologic History: Reports: None - Infectious Disease History Infectious Disease History: Reports: Chicken Pox, Measles, Mumps - Past Surgical History HEENT Surgical History: Reports: Eye Surgery (bilateral lower eyelid lift) GI Surgical History: Reports: Appendectomy, Bariatric Procedure (gastric bypass 08/17/2015), Colonoscopy (x 2) Neurological Surgical History: Reports: C-Spine (ACDF), Lumbar Spine (l aminectomy, L5-L7 fusion) Social & Family History - Family History Family Medical History: No Pertinent Family History - Tobacco Use Tobacco Use Status *Q: Current Every Day Tobacco User Years of Tobacco use: 63 Packs/Tins Daily: 0.2 Tobacco Use Comment: Started smoking at 12 yrs old - Caffeine Use Caffeine Use: Reports: Energy Drinks, Soda Caffeine Use Comment: very rarely - Recreational Drug Use Recreational Drug Use: No - Living Situation & Occupation Living situation: Reports: , Alone Occupation: Retired H&P Review of Systems - Review of Systems: Review Of Systems: Comprehensive ROS is negative, except as noted in HPI. Exam - Exam Exam: See Below - Vital Signs Vital Signs: Last Vital Signs Temp 98.9 F 02/22/21 01:02 Pulse 89 02/22/21 01:02 Resp 18 02/22/21 01:02 BP 94/53 L 02/22/21 01:02 Pulse Ox 98 02/22/21 01:02 Orthostatic Blood Pressure [ 86/50 Sitting] Orthostatic Blood Pressure [ 112/64 Supine] Weight: 205 lb - Exam General: Alert, Oriented HEENT: Conjunctiva Clear, EOMI, Hearing Intact, Nares Patent Neck: Supple Lungs: Clear to Auscultation, Normal Respiratory Effort Cardiovascular: Regular Rate, Regular Rhythm GI/Abdominal Exam: Normal Bowel Sounds, Soft, Non-Tender, No Distention Back Exam: Normal Inspection Extremities: Normal Inspection Skin: Warm, Dry, Intact Neurological: Cranial Nerves Intact Neuro Extensive - Mental Status: Alert, Oriented x3 Neuro Extensive - Motor, Sensory, Reflexes: CN II-XII Intact Psychiatric: Alert, Normal Affect, Normal Mood - Patient Data Lab Results Last 24 hrs: Laboratory Results - last 24 hr 02/21/21 02/21/21 02/21/21 Range/Units 21:57 21:57 21:57 WBC 8.02 (4.23-9.07) K/mm3 RBC 2.62 L (4.63-6.08) M/mm3 Hgb 7.1 L* D (13.7-17.5) gm/dl Hct 23.9 L (40.1-51.0) % MCV 91.2 (79.0-92.2) fl MCH 27.1 (25.7-32.2) pg MCHC 29.7 L (32.2-35.5) g/dl RDW Std Deviation 56.4 H (35.1-43.9) fL Plt Count 168 D (163-337) K/mm3 MPV 11.2 (9.4-12.3) fl Neutrophils % (Manual) 76 H (40-60) % Band Neutrophils % 0 (0-10) % Lymphocytes % (Manual) 14 L (20-40) % Atypical Lymphs % 0 % Monocytes % (Manual) 9 (2-10) % Eosinophils % (Manual) 1 (0.8-7.0) % Basophils % (Manual) 0 L (0.2-1.2) Toxic Granulation 2+ moderate Platelet Estimate Adequate Hypochromasia 2+ moderate Poikilocytosis Anisocytosis 2+ moderate Ovalocytes 1+ slight RBC Morph Comment Not Reportable PT (9.7-12.0) SECONDS INR APTT (21.7-31.4) SECONDS Sodium 143 (136-145) mEq/L Potassium 3.8 (3.5-5.1) mEq/L Chloride 104 (98-107) mEq/L Carbon Dioxide 35 H (21-32) mEq/L Anion Gap 7.8 (5-15) BUN 76 H (7-18) mg/dL Creatinine 3.0 H D (0.7-1.3) mg/dL Est Cr Clr Drug Dosing 20.27 mL/min Estimated GFR (MDRD) 20 (>60) mL/min BUN/Creatinine Ratio 25.3 H (14-18) Glucose 130 H (70-99) mg/dL Calcium 8.1 L (8.5-10.1) mg/dL Total Bilirubin 0.4 (0.2-1.0) mg/dL AST 19 (15-37) U/L ALT 26 (16-63) U/L Alkaline Phosphatase 45 L (46-116) U/L Total Protein 5.6 L (6.4-8.2) g/dl Albumin 2.7 L (3.4-5.0) g/dl Globulin 2.9 gm/dL Albumin/Globulin Ratio 0.9 L (1-2) Blood Type A POSITIVE Gel Antibody Screen Negative Crossmatch See Detail 02/21/21 Range/Units 22:50 WBC (4.23-9.07) K/mm3 RBC (4.63-6.08) M/mm3 Hgb (13.7-17.5) gm/dl Hct (40.1-51.0) % MCV (79.0-92.2) fl MCH (25.7-32.2) pg MCHC (32.2-35.5) g/dl RDW Std Deviation (35.1-43.9) fL Plt Count (163-337) K/mm3 MPV (9.4-12.3) fl Neutrophils % (Manual) (40-60) % Band Neutrophils % (0-10) % Lymphocytes % (Manual) (20-40) % Atypical Lymphs % % Monocytes % (Manual) (2-10) % Eosinophils % (Manual) (0.8-7.0) % Basophils % (Manual) (0.2-1.2) Toxic Granulation Platelet Estimate Hypochromasia Poikilocytosis Anisocytosis Ovalocytes RBC Morph Comment PT 11.4 (9.7-12.0) SECONDS INR 1.07 APTT 25.6 (21.7-31.4) SECONDS Sodium (136-145) mEq/L Potassium (3.5-5.1) mEq/L Chloride (98-107) mEq/L Carbon Dioxide (21-32) mEq/L Anion Gap (5-15) BUN (7-18) mg/dL Creatinine (0.7-1.3) mg/dL Est Cr Clr Drug Dosing mL/min Estimated GFR (MDRD) (>60) mL/min BUN/Creatinine Ratio (14-18) Glucose (70-99) mg/dL Calcium (8.5-10.1) mg/dL Total Bilirubin (0.2-1.0) mg/dL AST (15-37) U/L ALT (16-63) U/L Alkaline Phosphatase (46-116) U/L Total Protein (6.4-8.2) g/dl Albumin (3.4-5.0) g/dl Globulin gm/dL Albumin/Globulin Ratio (1-2) Blood Type Gel Antibody Screen Crossmatch Result Diagrams: 02/22/21 07:10 02/22/21 06:39 Sepsis Event Note - Evaluation Sepsis Screening Result: Possible Sepsis Risk - Focused Exam Vital Signs: Vital Signs Temp Temp Pulse Resp BP Pulse Ox 02/22/21 01:02 98.9 F 89 18 94/53 L 98 02/22/21 00:45 98.7 F 89 16 109/56 L 96 02/21/21 21:26 99 F 94 18 123/57 L 95 Problem List Initiated/Reviewed/Updated: Yes Orders Last 24hrs: Active Orders 24 hr Category Date Time Status Patient Status [ADT] Routine ADT 02/22/21 01:03 Active Antiembolic Devices [RC] PER UNIT ROUTINE Care 02/22/21 00:57 Active Cardiac Monitoring [RC] CONTINUOUS Care 02/22/21 00:56 Active EKG Documentation Completion [RC] STAT Care 02/21/21 22:48 Active Height and Weight [RC] DAILY Care 02/22/21 00:56 Active Hemoccult [Fecal Occult Blood Collection] [RC] Care 02/21/21 22:53 Active ASDIRECTED Intake and Output [RC] QSHIFT Care 02/22/21 00:56 Active Notify Provider Vital Signs [RC] ASDIRECTED Care 02/22/21 00:56 Active Orthostatic Vital Signs [RC] STAT Care 02/21/21 22:48 Active Orthostatic Vital Signs [RC] STAT Care 02/21/21 23:41 Active Oxygen Therapy [RC] PRN Care 02/22/21 00:56 Active Pulse Oximetry [RC] CONTINUOUS Care 02/22/21 00:56 Active Up With Assistance [RC] ASDIRECTED Care 02/22/21 00:56 Active VTE/DVT Education [RC] PER UNIT ROUTINE Care 02/22/21 00:56 Active Vital Signs [RC] Q4H Care 02/22/21 00:56 Active Nothing per Oral Now Diet [DIET] Diet 02/22/21 Breakfast Active CBC WITH AUTO DIFF [HEME] AM Lab 02/22/21 05:11 Ordered COMPREHENSIVE METABOLIC PN,CMP [CHEM] AM Lab 02/22/21 05:11 Ordered CORONAVIRUS COVID-19 MARCEL [MOLEC] Stat Lab 02/22/21 00:14 Received FRESH FROZEN PLASMA [BBK] Stat Lab 02/21/21 21:57 Results RED BLOOD CELLS LP [BBK] Stat Lab 02/21/21 21:57 Results TYPE AND SCREEN [BBK] Stat Lab 02/21/21 21:57 Results HYDROmorphone [Dilaudid] Med 02/22/21 00:56 Active 0.5 mg IVPUSH Q2H PRN Lactated Ringers [Ringers, Lactated] 1,000 ml Med 02/22/21 01:00 Active IV ASDIRECTED Ondansetron [Zofran] Med 02/22/21 00:56 Active 4 mg IV Q4H PRN Pantoprazole [ProTONIX IV] 80 mg Med 02/21/21 23:00 Active Sodium Chloride 0.9% [Normal Saline] 100 ml IV Q10H Sodium Chloride 0.9% [Normal Saline] 250 ml Med 02/22/21 00:45 Active IV ASDIRECTED Sequential Compression Device [OM.PC] Per Unit Routine Oth 02/22/21 00:57 Ordered Transfuse PRBC [Transfuse Red Blood Cells] [COMM] Stat Oth 02/21/21 23:41 Ordered Resuscitation Status Routine Resus Stat 02/22/21 00:56 Ordered Medication Orders Hydromorphone HCl (Hydromorphone 0.5 Mg/0.5 Ml Syringe) 0.5 mg IVPUSH Q2H PRN PRN Reason: Pain (severe 7-10) Pantoprazole Sodium 80 mg/ (Sodium Chloride) 100 mls @ 8 mls/hr IV Q10H [facility] Last Admin: 02/21/21 23:14 Dose: 8 mls/hr Documented by: LYUBOV Sodium Chloride (Normal Saline) 250 mls @ 50 mls/hr IV ASDIRECTED [facility] Last Admin: 02/22/21 00:55 Dose: 50 mls/hr Documented by: RUBEN Lactated Ringer's (Ringers, Lactated) 1,000 mls @ 100 mls/hr IV ASDIRECTED [facility] Ondansetron HCl (Ondansetron 4 Mg/2 Ml Sdv) 4 mg IV Q4H PRN PRN Reason: Nausea/Vomiting Assessment/Plan Comment:: Assessment: This is a 75M with PMHx noted below including hx of Paulina-en-y presenting for evaluation of melena. Earlier in the day the patient noted dark stool. He endorsed nausea but no hematemesis. He is not on anticoagulation but takes NSAIDS. In the ED the patient's hemoglobin was noted to be 7.1. He was given protonix, 2 units of PRBC and FFP and admitted to the ICU for further evaluation. 1. Acute GI Bleed 2. Hx of HTN 3. Hx of BPH 4. Hx of Urinary retention 5. Hx of COPD 6. Hx of CORTNEY 7. Hx of HLD 8. Hx of Gout Plan -admit to icu -repeat hgb post transfusion; then q6h hgb -transfuse to keep hgb>8 -npo -mivf -tele -continue PPI -hold antihypertensives -Surgery consult for endoscopy Code-Full code DVT ppx-SCD
[2021-02-22] MEDS ORDERED: Albuterol 6.7 GM Inhaler INH PRN (01:13)
[2021-02-22] MEDS: HYDROmorphone 0.5 MG/0.5 ML Syringe IVPUSH PRN ×7 (01:29→22:38)
[2021-02-22] MEDS: Lactated Ringers 1,000 ML IV SCH ×3 (01:52→22:31)
[2021-02-22] MEDS ORDERED: Lactated Ringers 500 ML IV ONE (07:32)
--- NOTE | 2021-02-22 10:18 | PCM.CONS ---
H&P History of Present Illness - General Date of Service: 02/22/21 Admit Problem/Dx: Admission Diagnosis/Problem Admission Diagnosis/Problem GI bleed requiring more than 4 units of blood in 24 hours, ICU, or surgery Source of Information: Patient History Limitations: Reports: No Limitations - History of Present Illness Initial Comments - Free Text/Narative: Patient has history of gastric bypass in 2011. He was doing fine until yesterday afternoon when he started passing black tarry stools. Then he developed lightheadedness and presented to the ER where Hgb was 7.1. He received 2 U PRBCs and 2 U FFP and recheck revealed Hgb of 5.5. He has received additional 4 units of PRBCs. He continues to be hemodynamically normal and complaints of no abdominal pain. passed another tarry black stool this AM. He is using Mobic daily and smokes about 1/4 PPD of cigarettes. Onset of Symptoms: Reports: Sudden Duration of Symptoms: Reports: Day(s): (1) Location: Reports: Abdomen Bilateral Leg Pain Score (Numeric/FACES): 10 - Related Data Allergies/Adverse Reactions: Allergies Allergy/AdvReac Type Severity Reaction Status Date / Time No Known Allergies Allergy Verified 02/22/21 06:26 Home Medications: Home Meds Tamsulosin [Flomax] 0.4 mg PO DAILY 07/28/19 [History] Furosemide 80 mg PO DAILY 12/29/20 [History] L. Acidophilus/L. Rhamnosus [Probiotic 15 Billion Cell Cap] 1 cap PO DAILY 12/29/20 [History] Meloxicam 7.5 mg PO DAILY 12/29/20 [History] Potassium Chloride 20 meq PO DAILY 12/29/20 [History] Pramipexole [Mirapex] 1 mg PO BID 12/29/20 [History] Terazosin [Hytrin] 5 mg PO BID 12/29/20 [History] Zolpidem [Ambien] 5 mg PO BEDTIME PRN 12/29/20 [History] allopurinoL [Zyloprim] 100 mg PO DAILY 12/29/20 [History] amLODIPine [Norvasc] 5 mg PO DAILY 12/29/20 [History] buPROPion [Wellbutrin SR] 150 mg PO BID 12/29/20 [History] metOLazone [Metolazone] 5 mg PO DAILY 12/29/20 [History] Acetaminophen [Pain Reliever] 500 mg PO Q8H PRN 01/07/21 [History] Albuterol Sulfate [Albuterol Sulfate Hfa] 2 puff INH Q4H PRN 01/07/21 [History] Calcium Carb/Vitamin D3/Vit K1 [Calcium + Vit D & K Chew] 1 tab PO DAILY 01/07/21 [History] Cyclobenzaprine [Flexeril] 10 mg PO DAILY PRN 01/07/21 [History] atorvaSTATin [Lipitor] 20 mg PO DAILY 01/07/21 [History] oxyCODONE 5 mg PO QID PRN 01/07/21 [History] Past Medical History HEENT History: Reports: Impaired Vision Cardiovascular History: Reports: High Cholesterol, Hypertension Respiratory History: Reports: COPD, Sleep Apnea Gastrointestinal History: Reports: Colon Polyp Genitourinary History: Reports: BPH, Chronic Renal Insuffiency, Retention, Urinary Musculoskeletal History: Reports: Fracture Neurological History: Reports: Head Trauma Other Neuro History: traumatic brain bleed Psychiatric History: Reports: Depression Endocrine/Metabolic History: Reports: Diabetes, Type II, Obesity/BMI 30+ Hematologic History: Reports: None Immunologic History: Reports: None Oncologic (Cancer) History: Reports: None Dermatologic History: Reports: None - Infectious Disease History Infectious Disease History: Reports: Chicken Pox, Measles, Mumps - Past Surgical History HEENT Surgical History: Reports: Eye Surgery Other HEENT Surgeries/Procedures: tightened up bottom lids, wears glasses Respiratory Surgical History: Reports: None GI Surgical History: Reports: Appendectomy, Bariatric Procedure, Colonoscopy Neurological Surgical History: Reports: C-Spine, Lumbar Spine Musculoskeletal Surgical History: Reports: Other (See Below) Other Musculoskeletal Surgeries/Procedures:: neck and back surgery Social & Family History - Family History Family Medical History: No Pertinent Family History - Tobacco Use Tobacco Use Status *Q: Current Every Day Tobacco User Years of Tobacco use: 50 Packs/Tins Daily: 0.1 Used Tobacco, but Quit: No Tobacco Use Comment: Started smoking at 12 yrs old Second Hand Smoke Exposure: No - Caffeine Use Caffeine Use: Reports: Coffee Caffeine Use Comment: very rarely - Alcohol Use Days Per Week of Alcohol Use: 0 - Recreational Drug Use Recreational Drug Use: No - Living Situation & Occupation Living situation: Reports: , Alone Occupation: Retired H&P Review of Systems - Review of Systems: Review Of Systems: See Below General: Reports: No Symptoms HEENT: Reports: No Symptoms Pulmonary: Reports: No Symptoms Cardiovascular: Reports: No Symptoms Gastrointestinal: Reports: Melena Genitourinary: Reports: No Symptoms Musculoskeletal: Reports: No Symptoms Skin: Reports: No Symptoms Psychiatric: Reports: No Symptoms Exam - Exam Exam: See Below - Vital Signs Vital Signs: Last Vital Signs Temp 97.4 F 02/22/21 09:42 Pulse 77 02/22/21 09:55 Resp 18 02/22/21 09:55 BP 131/53 L 02/22/21 09:55 Pulse Ox 92 L 02/22/21 09:55 Orthostatic Blood Pressure [ 86/50 Sitting] Orthostatic Blood Pressure [ 112/64 Supine] Weight: 90.356 kg - Exam General: Alert, Oriented, Cooperative Lungs: Clear to Auscultation, Normal Respiratory Effort Cardiovascular: Regular Rate, Regular Rhythm, Normal S1, Normal S2 GI/Abdominal Exam: Soft, Non-Tender, No Organomegaly, No Distention - Patient Data Lab Results Last 24 hrs: Laboratory Results - last 24 hr 02/21/21 02/21/21 02/21/21 Range/Units 21:57 21:57 21:57 WBC 8.02 (4.23-9.07) K/mm3 RBC 2.62 L (4.63-6.08) M/mm3 Hgb 7.1 L* D (13.7-17.5) gm/dl Hct 23.9 L (40.1-51.0) % MCV 91.2 (79.0-92.2) fl MCH 27.1 (25.7-32.2) pg MCHC 29.7 L (32.2-35.5) g/dl RDW Std Deviation 56.4 H (35.1-43.9) fL Plt Count 168 D (163-337) K/mm3 MPV 11.2 (9.4-12.3) fl Neut % (Auto) (34.0-67.9) % Lymph % (Auto) (21.8-53.1) % [place] % (Auto) (5.3-12.2) % Eos % (Auto) (0.8-7.0) Baso % (Auto) (0.1-1.2) % Neut # (Auto) (1.78-5.38) K/mm3 Lymph # (Auto) (1.32-3.57) K/mm3 [place] # (Auto) (0.30-0.82) K/mm3 Eos # (Auto) (0.04-0.54) K/mm3 Baso # (Auto) (0.01-0.08) K/mm3 Neutrophils % (Manual) 76 H (40-60) % Band Neutrophils % 0 (0-10) % Lymphocytes % (Manual) 14 L (20-40) % Atypical Lymphs % 0 % Monocytes % (Manual) 9 (2-10) % Eosinophils % (Manual) 1 (0.8-7.0) % Basophils % (Manual) 0 L (0.2-1.2) Manual Slide Review Toxic Granulation 2+ moderate Platelet Estimate Adequate Hypochromasia 2+ moderate Poikilocytosis Anisocytosis 2+ moderate Ovalocytes 1+ slight RBC Morph Comment Not Reportable PT (9.7-12.0) SECONDS INR APTT (21.7-31.4) SECONDS Sodium 143 (136-145) mEq/L Potassium 3.8 (3.5-5.1) mEq/L Chloride 104 (98-107) mEq/L Carbon Dioxide 35 H (21-32) mEq/L Anion Gap 7.8 (5-15) BUN 76 H (7-18) mg/dL Creatinine 3.0 H D (0.7-1.3) mg/dL Est Cr Clr Drug Dosing 20.27 mL/min Estimated GFR (MDRD) 20 (>60) mL/min BUN/Creatinine Ratio 25.3 H (14-18) Glucose 130 H (70-99) mg/dL Calcium 8.1 L (8.5-10.1) mg/dL Total Bilirubin 0.4 (0.2-1.0) mg/dL AST 19 (15-37) U/L ALT 26 (16-63) U/L Alkaline Phosphatase 45 L (46-116) U/L Total Protein 5.6 L (6.4-8.2) g/dl Albumin 2.7 L (3.4-5.0) g/dl Globulin 2.9 gm/dL Albumin/Globulin Ratio 0.9 L (1-2) SARS-CoV-2 RNA (MARCEL) (NEGATIVE) Blood Type A POSITIVE Gel Antibody Screen Negative Crossmatch See Detail 02/21/21 02/21/21 02/22/21 Range/Units 22:50 23:00 00:14 WBC (4.23-9.07) K/mm3 RBC (4.63-6.08) M/mm3 Hgb (13.7-17.5) gm/dl Hct (40.1-51.0) % MCV (79.0-92.2) fl MCH (25.7-32.2) pg MCHC (32.2-35.5) g/dl RDW Std Deviation (35.1-43.9) fL Plt Count (163-337) K/mm3 MPV (9.4-12.3) fl Neut % (Auto) (34.0-67.9) % Lymph % (Auto) (21.8-53.1) % [place] % (Auto) (5.3-12.2) % Eos % (Auto) (0.8-7.0) Baso % (Auto) (0.1-1.2) % Neut # (Auto) (1.78-5.38) K/mm3 Lymph # (Auto) (1.32-3.57) K/mm3 [place] # (Auto) (0.30-0.82) K/mm3 Eos # (Auto) (0.04-0.54) K/mm3 Baso # (Auto) (0.01-0.08) K/mm3 Neutrophils % (Manual) (40-60) % Band Neutrophils % (0-10) % Lymphocytes % (Manual) (20-40) % Atypical Lymphs % % Monocytes % (Manual) (2-10) % Eosinophils % (Manual) (0.8-7.0) % Basophils % (Manual) (0.2-1.2) Manual Slide Review Toxic Granulation Platelet Estimate Hypochromasia Poikilocytosis Anisocytosis Ovalocytes RBC Morph Comment PT 11.4 (9.7-12.0) SECONDS INR 1.07 APTT 25.6 (21.7-31.4) SECONDS Sodium (136-145) mEq/L Potassium (3.5-5.1) mEq/L Chloride (98-107) mEq/L Carbon Dioxide (21-32) mEq/L Anion Gap (5-15) BUN (7-18) mg/dL Creatinine (0.7-1.3) mg/dL Est Cr Clr Drug Dosing mL/min Estimated GFR (MDRD) (>60) mL/min BUN/Creatinine Ratio (14-18) Glucose (70-99) mg/dL Calcium (8.5-10.1) mg/dL Total Bilirubin (0.2-1.0) mg/dL AST (15-37) U/L ALT (16-63) U/L Alkaline Phosphatase (46-116) U/L Total Protein (6.4-8.2) g/dl Albumin (3.4-5.0) g/dl Globulin gm/dL Albumin/Globulin Ratio (1-2) SARS-CoV-2 RNA (MARCEL) Negative (NEGATIVE) Blood Type Gel Antibody Screen Crossmatch See Detail 02/22/21 02/22/21 02/22/21 Range/Units 06:39 06:39 07:10 WBC 7.25 (4.23-9.07) K/mm3 RBC 2.09 L (4.63-6.08) M/mm3 Hgb 5.8 L* 5.5 L* (13.7-17.5) gm/dl Hct 18.8 L 18.0 L (40.1-51.0) % MCV 90.0 (79.0-92.2) fl MCH 27.8 (25.7-32.2) pg MCHC 30.9 L (32.2-35.5) g/dl RDW Std Deviation 54.7 H (35.1-43.9) fL Plt Count 110 L (163-337) K/mm3 MPV 11.0 (9.4-12.3) fl Neut % (Auto) 76.9 H (34.0-67.9) % Lymph % (Auto) 12.6 L (21.8-53.1) % [place] % (Auto) 8.3 (5.3-12.2) % Eos % (Auto) 1.8 (0.8-7.0) Baso % (Auto) 0.3 (0.1-1.2) % Neut # (Auto) 5.58 H (1.78-5.38) K/mm3 Lymph # (Auto) 0.91 L (1.32-3.57) K/mm3 [place] # (Auto) 0.60 (0.30-0.82) K/mm3 Eos # (Auto) 0.13 (0.04-0.54) K/mm3 Baso # (Auto) 0.02 (0.01-0.08) K/mm3 Neutrophils % (Manual) (40-60) % Band Neutrophils % (0-10) % Lymphocytes % (Manual) (20-40) % Atypical Lymphs % % Monocytes % (Manual) (2-10) % Eosinophils % (Manual) (0.8-7.0) % Basophils % (Manual) (0.2-1.2) Manual Slide Review Abnormal smear Toxic Granulation Platelet Estimate Hypochromasia Poikilocytosis Anisocytosis Ovalocytes RBC Morph Comment PT (9.7-12.0) SECONDS INR APTT (21.7-31.4) SECONDS Sodium 147 H (136-145) mEq/L Potassium 4.0 (3.5-5.1) mEq/L Chloride 110 H (98-107) mEq/L Carbon Dioxide 34 H (21-32) mEq/L Anion Gap 7.0 (5-15) BUN 75 H (7-18) mg/dL Creatinine 2.4 H (0.7-1.3) mg/dL Est Cr Clr Drug Dosing 25.33 mL/min Estimated GFR (MDRD) 26 (>60) mL/min BUN/Creatinine Ratio 31.3 H (14-18) Glucose 121 H (70-99) mg/dL Calcium 7.6 L (8.5-10.1) mg/dL Total Bilirubin 0.6 (0.2-1.0) mg/dL AST 11 L (15-37) U/L ALT 19 (16-63) U/L Alkaline Phosphatase 32 L (46-116) U/L Total Protein 4.2 L (6.4-8.2) g/dl Albumin 2.0 L (3.4-5.0) g/dl Globulin 2.2 gm/dL Albumin/Globulin Ratio 0.9 L (1-2) SARS-CoV-2 RNA (MARCEL) (NEGATIVE) Blood Type Gel Antibody Screen Crossmatch Result Diagrams: 02/22/21 07:10 02/22/21 06:39 Sepsis Event Note - Evaluation Sepsis Screening Result: No Definite Risk - Focused Exam Vital Signs: Vital Signs Temp Temp Pulse Pulse Resp BP BP 02/22/21 09:55 77 18 131/53 L 02/22/21 09:42 97.4 F 66 18 125/62 02/22/21 09:33 98.0 F 80 17 02/22/21 09:23 98.0 F 76 21 H 02/22/21 09:15 98.0 F 77 20 02/22/21 08:55 96.8 F L 82 21 H 114/79 02/22/21 08:00 98.0 F 81 18 114/79 02/22/21 07:36 98.2 F 81 22 H 02/22/21 06:50 97.2 F 13 93/51 L 02/22/21 06:40 02/22/21 06:35 97.4 F 14 93/51 L 02/22/21 06:13 97.4 F 20 104/45 L 02/22/21 06:08 80 02/22/21 05:39 78 17 02/22/21 05:38 97.4 F 14 93/52 L 02/22/21 05:17 97.5 F 14 109/58 L 02/22/21 05:05 97.6 F 16 104/48 L 02/22/21 04:01 77 16 02/22/21 04:00 97.4 F 16 106/45 L 02/22/21 03:28 97.2 F 17 95/55 L 02/22/21 03:13 97.2 F 95 19 109/48 L 02/22/21 02:55 97.2 F 17 110/54 L 02/22/21 01:57 02/22/21 01:55 02/22/21 01:22 98.3 F 18 114/54 L 02/22/21 01:02 98.9 F 89 18 94/53 L 02/22/21 00:45 98.7 F 89 16 109/56 L Pulse Ox Pulse Ox 02/22/21 09:55 92 L 02/22/21 09:42 96 02/22/21 09:33 100 02/22/21 09:23 99 02/22/21 09:15 96 02/22/21 08:55 02/22/21 08:00 100 02/22/21 07:36 96 02/22/21 06:50 97 02/22/21 06:40 96 02/22/21 06:35 99 02/22/21 06:13 93 L 02/22/21 06:08 87 L 02/22/21 05:39 95 02/22/21 05:38 96 02/22/21 05:17 98 02/22/21 05:05 98 02/22/21 04:01 92 L 02/22/21 04:00 100 02/22/21 03:28 100 02/22/21 03:13 02/22/21 02:55 99 02/22/21 01:57 98 02/22/21 01:55 99 02/22/21 01:22 94 L 02/22/21 01:02 98 02/22/21 00:45 96 Consult PN Assessment/Plan Procedures: Procedures AIRWAY INHALATION TREATMENT (12/28/20) ASSAY OF TROPONIN QUANT (08/24/17) BL SMEAR W/DIFF WBC COUNT (12/28/20) BLOOD GASES ANY COMBINATION (12/28/20) C-REACTIVE PROTEIN (12/28/20) CARDIOVASCULAR STRESS TEST (12/23/20) COMPLETE CBC AUTOMATED (12/28/20) COMPLETE CBC W/AUTO DIFF WBC (01/10/21) COMPREHEN METABOLIC PANEL (01/07/21) CT HEAD/BRAIN W/O DYE (01/22/16) CT NECK SPINE W/O DYE (01/22/16) CT SOFT TISSUE NECK W/DYE (12/28/20) ELECTROCARDIOGRAM TRACING (08/24/17) EMERGENCY DEPT VISIT (02/12/21) EMERGENCY DEPT VISIT (01/07/21) EMERGENCY DEPT VISIT (08/09/19) EMERGENCY DEPT VISIT (08/02/19) EMERGENCY DEPT VISIT (08/24/17) EXTREMITY STUDY (08/09/19) FIBRIN DEGRADATION QUANT (08/24/17) HT MUSCLE IMAGE SPECT MULT (12/23/20) HYDRATION IV INFUSION INIT (01/22/16) IIV NO PRSV INCREASED AG IM (07/22/19) INSERT TEMP BLADDER CATH (02/12/21) IRRIGATION OF BLADDER (08/02/19) MEASURE BLOOD OXYGEN LEVEL (01/07/21) POLYSOM 6/>YRS CPAP 4/> PARM (12/21/19) PROTHROMBIN TIME (07/28/19) PT EVAL LOW COMPLEX 20 MIN (01/09/21) PT EVAL MOD COMPLEX 30 MIN (01/07/21) ROUTINE VENIPUNCTURE (01/10/21) THER/PROPH/DIAG INJ SC/IM (01/07/21) THER/PROPH/DIAG IV INF INIT (12/28/20) THERAPEUTIC ACTIVITIES (01/07/21) THERAPEUTIC EXERCISES (01/09/21) THROMBOPLASTIN TIME PARTIAL (07/28/19) TX/PRO/DX INJ NEW DRUG ADDON (12/28/20) URINALYSIS AUTO W/O SCOPE (01/07/21) URINALYSIS AUTO W/SCOPE (08/09/19) URINE CULTURE/COLONY COUNT (08/09/19) US URINE CAPACITY MEASURE (12/28/20) WITHDRAWAL OF ARTERIAL BLOOD (12/28/20) X-RAY EXAM CHEST 1 VIEW (12/28/20) Problem List Initiated/Reviewed/Updated: No Plan: Patient has severe melena. Has received 6 total units PRBCs and 2 FFP. - recheck H/H - I recommended EGD with possible colonoscopy to see if we can identify the source of bleeding in this patient. I discussed this plan with the patient who is agreeable. we discussed risks, benefits and alternatives. Risks discussed include but not limited to bleeding and perforation. patient understands and agreed to proceed. Informed consent was signed.
[2021-02-22] MEDS: Pantoprazole 80 MG in Sodium Chloride 0.9% 100 ML IV SCH ×2 (10:42→20:34)
[2021-02-22] MEDS ORDERED: Lidocaine 1% 8 ML ONE (11:27)
[2021-02-22] MEDS ORDERED: Propofol 200 MG/20 ML SDV ONE ×2 (11:27→12:05)
[2021-02-22] MEDS ORDERED: fentaNYL 100 MCG/2 ML SDV ONE (11:28)
[2021-02-22] MEDS ORDERED: EPINEPHrine 1 MG/ML SDV ONE (11:47)
[2021-02-22] MEDS ORDERED: Metoclopramide 10 MG/2 ML SDV ONE (11:52)
[2021-02-22] MEDS ORDERED: Ondansetron 4 MG/2 ML SDV ONE (11:52)
--- NOTE | 2021-02-22 12:30 | PCM.PREANE ---
Preanesthetic Assessment - Procedure Proposed Procedure: EGD - Anesthesia/Transfusion/Family Hx Anesthesia History: Prior Anesthesia Without Reaction Transfusion History: No Prior Transfusion(s) - Review of Systems General: Weakness, Fatigue, Malaise Pulmonary: Cough, Sputum Cardiovascular: No Symptoms Gastrointestinal: Abdominal Pain, Hematochezia (diarrhea), Melena, Other Neurological: Other (back pain) Other: Reports: None - Physical Assessment Vital Signs: Last Vital Signs Temp 97.4 F 02/22/21 09:42 Pulse 77 02/22/21 09:55 Resp 18 02/22/21 09:55 BP 131/53 L 02/22/21 09:55 Pulse Ox 92 L 02/22/21 09:55 Orthostatic Blood Pressure [ 86/50 Sitting] Orthostatic Blood Pressure [ 112/64 Supine] Height: 1.73 m Weight: 90.356 kg ASA Class: 3E Mental Status: Alert & Oriented x3 Airway Class: Mallampati = 2 Dentition: Reports: Dentures, Edentulous Thyro-Mental Finger Breadths: 3 Mouth Opening Finger Breadths: 3 ROM/Head Extension: Full Lungs: Normal Respiratory Effort, Decreased Breath Sounds, Rales Cardiovascular: Regular Rate, Regular Rhythm - Lab Values: Laboratory Last Values WBC 7.25 K/mm3 (4.23-9.07) 02/22/21 06:39 RBC 2.09 M/mm3 (4.63-6.08) L 02/22/21 06:39 Hgb 8.2 gm/dl (13.7-17.5) L D 02/22/21 10:34 Hct 26.6 % (40.1-51.0) L 02/22/21 10:34 MCV 90.0 fl (79.0-92.2) 02/22/21 06:39 MCH 27.8 pg (25.7-32.2) 02/22/21 06:39 MCHC 30.9 g/dl (32.2-35.5) L 02/22/21 06:39 RDW Std Deviation 54.7 fL (35.1-43.9) H 02/22/21 06:39 Plt Count 110 K/mm3 (163-337) L 02/22/21 06:39 MPV 11.0 fl (9.4-12.3) 02/22/21 06:39 Neut % (Auto) 76.9 % (34.0-67.9) H 02/22/21 06:39 Lymph % (Auto) 12.6 % (21.8-53.1) L 02/22/21 06:39 [place] % (Auto) 8.3 % (5.3-12.2) 02/22/21 06:39 Eos % (Auto) 1.8 (0.8-7.0) 02/22/21 06:39 Baso % (Auto) 0.3 % (0.1-1.2) 02/22/21 06:39 Neut # (Auto) 5.58 K/mm3 (1.78-5.38) H 02/22/21 06:39 Lymph # (Auto) 0.91 K/mm3 (1.32-3.57) L 02/22/21 06:39 [place] # (Auto) 0.60 K/mm3 (0.30-0.82) 02/22/21 06:39 Eos # (Auto) 0.13 K/mm3 (0.04-0.54) 02/22/21 06:39 Baso # (Auto) 0.02 K/mm3 (0.01-0.08) 02/22/21 06:39 Neutrophils % (Manual) 76 % (40-60) H 02/21/21 21:57 Band Neutrophils % 0 % (0-10) 02/21/21 21:57 Lymphocytes % (Manual) 14 % (20-40) L 02/21/21 21:57 Atypical Lymphs % 0 % 02/21/21 21:57 Monocytes % (Manual) 9 % (2-10) 02/21/21 21:57 Eosinophils % (Manual) 1 % (0.8-7.0) 02/21/21 21:57 Basophils % (Manual) 0 (0.2-1.2) L 02/21/21 21:57 Manual Slide Review Abnormal smear 02/22/21 06:39 Toxic Granulation 2+ moderate 02/21/21 21:57 Platelet Estimate Adequate 02/21/21 21:57 Hypochromasia 2+ moderate 02/21/21 21:57 Poikilocytosis 02/21/21 21:57 Anisocytosis 2+ moderate 02/21/21 21:57 Ovalocytes 1+ slight 02/21/21 21:57 RBC Morph Comment Not Reportable 02/21/21 21:57 PT 11.4 SECONDS (9.7-12.0) 02/21/21 22:50 INR 1.07 02/21/21 22:50 APTT 25.6 SECONDS (21.7-31.4) 02/21/21 22:50 Sodium 147 mEq/L (136-145) H 02/22/21 06:39 Potassium 4.0 mEq/L (3.5-5.1) 02/22/21 06:39 Chloride 110 mEq/L (98-107) H 02/22/21 06:39 Carbon Dioxide 34 mEq/L (21-32) H 02/22/21 06:39 Anion Gap 7.0 (5-15) 02/22/21 06:39 BUN 75 mg/dL (7-18) H 02/22/21 06:39 Creatinine 2.4 mg/dL (0.7-1.3) H 02/22/21 06:39 Est Cr Clr Drug Dosing 25.33 mL/min 02/22/21 06:39 Estimated GFR (MDRD) 26 mL/min (>60) 02/22/21 06:39 BUN/Creatinine Ratio 31.3 (14-18) H 02/22/21 06:39 Glucose 121 mg/dL (70-99) H 02/22/21 06:39 Calcium 7.6 mg/dL (8.5-10.1) L 02/22/21 06:39 Total Bilirubin 0.6 mg/dL (0.2-1.0) 02/22/21 06:39 AST 11 U/L (15-37) L 02/22/21 06:39 ALT 19 U/L (16-63) 02/22/21 06:39 Alkaline Phosphatase 32 U/L (46-116) L 02/22/21 06:39 Total Protein 4.2 g/dl (6.4-8.2) L 02/22/21 06:39 Albumin 2.0 g/dl (3.4-5.0) L 02/22/21 06:39 Globulin 2.2 gm/dL 02/22/21 06:39 Albumin/Globulin Ratio 0.9 (1-2) L 02/22/21 06:39 SARS-CoV-2 RNA (MARCEL) Negative (NEGATIVE) 02/22/21 00:14 Blood Type A POSITIVE 02/21/21 21:57 Gel Antibody Screen Negative 02/21/21 21:57 Crossmatch See Detail 02/21/21 23:00 - Allergies Allergies/Adverse Reactions: Allergies Allergy/AdvReac Type Severity Reaction Status Date / Time No Known Allergies Allergy Verified 02/22/21 06:26 - Acknowledgements Anesthesia Type Planned: MAC Pt an Appropriate Candidate for the Planned Anesthesia: Yes Alternatives and Risks of Anesthesia Discussed w Pt/Guardian: Yes Pt/Guardian Understands and Agrees with Anesthesia Plan: Yes PreAnesthesia Questionnaire HEENT History: Reports: Impaired Vision Cardiovascular History: Reports: High Cholesterol, Hypertension Respiratory History: Reports: COPD, Sleep Apnea Gastrointestinal History: Reports: Colon Polyp Genitourinary History: Reports: BPH, Chronic Renal Insuffiency, Retention, Urinary Musculoskeletal History: Reports: Fracture Neurological History: Reports: Head Trauma Other Neuro History: traumatic brain bleed Psychiatric History: Reports: Depression Endocrine/Metabolic History: Reports: Diabetes, Type II, Obesity/BMI 30+ Hematologic History: Reports: None Immunologic History: Reports: None Oncologic (Cancer) History: Reports: None Dermatologic History: Reports: None - Infectious Disease History Infectious Disease History: Reports: Chicken Pox, Measles, Mumps - Past Surgical History HEENT Surgical History: Reports: Eye Surgery Other HEENT Surgeries/Procedures: tightened up bottom lids, wears glasses Respiratory Surgical History: Reports: None GI Surgical History: Reports: Appendectomy, Bariatric Procedure, Colonoscopy Neurological Surgical History: Reports: C-Spine, Lumbar Spine Musculoskeletal Surgical History: Reports: Other (See Below) Other Musculoskeletal Surgeries/Procedures:: neck and back surgery - SUBSTANCE USE Tobacco Use Status *Q: Current Every Day Tobacco User Tobacco Use Within Last Twelve Months: Cigarettes Second Hand Smoke Exposure: No Days Per Week of Alcohol Use: 0 Recreational Drug Use History: No - HOME MEDS Home Medications: Home Meds Tamsulosin [Flomax] 0.4 mg PO DAILY 07/28/19 [History] Furosemide 80 mg PO DAILY 12/29/20 [History] L. Acidophilus/L. Rhamnosus [Probiotic 15 Billion Cell Cap] 1 cap PO DAILY 12/29/20 [History] Meloxicam 7.5 mg PO DAILY 12/29/20 [History] Potassium Chloride 20 meq PO DAILY 12/29/20 [History] Pramipexole [Mirapex] 1 mg PO BID 12/29/20 [History] Terazosin [Hytrin] 5 mg PO BID 12/29/20 [History] Zolpidem [Ambien] 5 mg PO BEDTIME PRN 12/29/20 [History] allopurinoL [Zyloprim] 100 mg PO DAILY 12/29/20 [History] amLODIPine [Norvasc] 5 mg PO DAILY 12/29/20 [History] buPROPion [Wellbutrin SR] 150 mg PO BID 12/29/20 [History] metOLazone [Metolazone] 5 mg PO DAILY 12/29/20 [History] Acetaminophen [Pain Reliever] 500 mg PO Q8H PRN 01/07/21 [History] Albuterol Sulfate [Albuterol Sulfate Hfa] 2 puff INH Q4H PRN 01/07/21 [History] Calcium Carb/Vitamin D3/Vit K1 [Calcium + Vit D & K Chew] 1 tab PO DAILY 01/07/21 [History] Cyclobenzaprine [Flexeril] 10 mg PO DAILY PRN 01/07/21 [History] atorvaSTATin [Lipitor] 20 mg PO DAILY 01/07/21 [History] oxyCODONE 5 mg PO QID PRN 01/07/21 [History] - CURRENT (IN HOUSE) MEDS Current Meds: Current Medications Albuterol (Albuterol 6.7 Gm Inhaler) 0 gm INH Q4H PRN PRN Reason: Shortness of Breath Hydromorphone HCl (Hydromorphone 0.5 Mg/0.5 Ml Syringe) 0.5 mg IVPUSH Q2H PRN PRN Reason: Pain (severe 7-10) Last Admin: 02/22/21 05:09 Dose: 0.5 mg Documented by: Pantoprazole Sodium 80 mg/ (Sodium Chloride) 100 mls @ 8 mls/hr IV Q10H [facility] [place] Last Admin: 02/22/21 10:42 Dose: 8 mls/hr Documented by: Sodium Chloride (Normal Saline) 250 mls @ 50 mls/hr IV ASDIRECTED [facility] [place] Last Admin: 02/22/21 00:55 Dose: 50 mls/hr Documented by: Lactated Ringer's (Ringers, Lactated) 1,000 mls @ 100 mls/hr IV ASDIRECTED [facility] [place] Last Admin: 02/22/21 08:38 Dose: 100 mls/hr Documented by: Ondansetron HCl (Ondansetron 4 Mg/2 Ml Sdv) 4 mg IV Q4H PRN PRN Reason: Nausea/Vomiting Discontinued Medications Epinephrine HCl (Epinephrine 1 Mg/Ml Sdv) Confirm Administered Dose 1 mg .ROUTE .STK-MED ONE Stop: 02/22/21 11:48 Fentanyl (Fentanyl 100 Mcg/2 Ml Sdv) Confirm Administered Dose 100 mcg .ROUTE .STK-MED ONE Stop: 02/22/21 11:29 Sodium Chloride (Normal Saline) 1,000 mls @ 150 mls/hr IV ASDIRECTED [facility] [place] Last Admin: 02/21/21 23:12 Dose: 150 mls/hr Documented by: Sodium Chloride (Normal Saline) 1,000 mls @ 999 mls/hr IV ONETIME ONE Stop: 02/22/21 00:40 Last Admin: 02/21/21 23:57 Dose: 999 mls/hr Documented by: Lactated Ringer's (Ringers, Lactated) 500 mls @ 500 mls/hr IV .BOLUS ONE Stop: 02/22/21 08:31 Last Admin: 02/22/21 07:48 Dose: 500 mls/hr Documented by: Lidocaine HCl (Xylocaine-Mpf 1%) Confirm Administered Dose 8 mls @ as directed .ROUTE .STK-MED ONE Stop: 02/22/21 11:28 Metoclopramide HCl (Metoclopramide 10 Mg/2 Ml Sdv) Confirm Administered Dose 10 mg .ROUTE .STK-MED ONE Stop: 02/22/21 11:53 Ondansetron HCl (Ondansetron 4 Mg/2 Ml Sdv) Confirm Administered Dose 4 mg .ROUTE .STK-MED ONE Stop: 02/22/21 11:53 Pantoprazole Sodium (Pantoprazole 40 Mg Vial) 80 mg IVPUSH ONETIME STA Stop: 02/21/21 22:51 Last Admin: 02/21/21 23:14 Dose: 80 mg Documented by: Propofol (Propofol 200 Mg/20 Ml Sdv) Confirm Administered Dose 400 mg .ROUTE .STK-MED ONE Stop: 02/22/21 11:28 Propofol (Propofol 200 Mg/20 Ml Sdv) Confirm Administered Dose 200 mg .ROUTE .STK-MED ONE Stop: 02/22/21 12:06
--- NOTE | 2021-02-22 13:21 | PCM.SN.2 ---
- Free Text/Narrative Note: EGD completed. - Bleeding marginal ulcer found with adherent blood clot - Epinephrine was used to stem the bleeding - One hemostatic clip was placed in the bleeding edge of the ulcer - At the end of the procedure, the bleeding had stopped Plan - return the patient to ICU for close monitoring - Q6H H/H - continue protonix infusion - Add PO carafate TID and Misoprostol - If patient rebleeds enough to require additional transfusions, then he should be transferred to [place] for further intervention. - patient needs to stop smoking and stop nicotine use
--- NOTE | 2021-02-22 13:59 | PROC ---
DATE OF OPERATION: 02/22/2021 SURGEON: Gary Medina MD PREOPERATIVE DIAGNOSIS: Gastrointestinal bleeding. POSTOPERATIVE DIAGNOSIS: Bleeding marginal ulcer. OPERATION PERFORMED: Esophagogastroduodenoscopy with placement of clips at the bleeding site. ANESTHESIA: Monitored anesthesia care. ESTIMATED BLOOD LOSS: Minimal. FINDINGS: Large bleeding marginal ulcer with adherent clot. Epinephrine was injected and 1 clip was placed at the bleeding site. INDICATION AND CONSENT: The patient is a 75-year-old male with prior history of Paulina-en-Y gastric bypass in 2011. The patient has been doing well, but in the past year, he has resumed smoking, smokes about half pack a day. The patient also takes Mobic for arthritis. Yesterday afternoon, the patient started having melena. He passed several bowel movements and started having symptoms including lightheadedness. The patient presented to the emergency department where his hemoglobin was found to be 7.1. He got 2 units of FFP and red blood cells. Recheck was 5.5. The patient got 4 additional units and I was asked to see the patient. His hemodynamics remained stable and recommended to proceed with EGD and possibly colonoscopy. We discussed risks, benefits, and alternatives. Informed consent was obtained. DETAILS OF PROCEDURE: The patient was taken to procedure room, placed in left lateral decubitus position. Monitored anesthesia care was induced. Then, a therapeutic scope was used. We placed the scope into the mouth, taking it all the way to the gastric pouch. The entire esophagus appeared normal. The GE junction appeared normal. We went into the upper part of the gastric pouch and this appeared to have red blood. We irrigated copiously with water and suctioned and the patient had a small hiatal hernia and all this was actually within the hiatal hernia. Then, we went into the gastric pouch and there was a large clot in the gastric pouch. We once again irrigated copiously here, suctioned and continued to irrigate, and eventually were able to remove the large amount of blood and clots and able to inspect the pouch. The pouch appeared normal. However, at the gastrojejunal anastomosis, just below it, there was a large ulceration and the edge of it was actively bleeding. We injected 20 mL of epinephrine 1:100,000 and the bleeding was stopped. Once again, we irrigated the area and suctioned all the blood around and were able to isolate the area that was bleeding. One hemostatic clip was placed in this area with good results. Once this was done, we went into the jejunum which appeared to be normal, although it was stained with red blood. We withdrew the scope back into the gastric pouch and inspected this area again and went back to the GE junction and inspected this area. There were no other areas of active bleeding that were noted and the procedure was concluded after withdrawing the scope. The patient will be allowed to return to the ICU for monitoring, q.6 hours H and H to continue PPI infusion as well as misoprostol and Carafate, and if the patient rebleeds, we will reevaluate and possibly transfer. [id number] /[id number] LIZZ
[2021-02-22] MEDS: Misoprostol 100 MCG Tab PO SCH ×2 (14:26→20:33)
--- NOTE | 2021-02-22 14:41 | PCM48HPAN ---
Post Anesthesia Note - EVALUATION WITHIN 48HRS OF ANESTHETIC Vital Signs in Normal Range: Yes Patient Participated in Evaluation: Yes Respiratory Function Stable: Yes Airway Patent: Yes Cardiovascular Function Stable: Yes Hydration Status Stable: Yes Pain Control Satisfactory: Yes Nausea and Vomiting Control Satisfactory: Yes Mental Status Recovered: Yes Vital Signs: Last Vital Signs Temp 97.4 F 02/22/21 09:42 Pulse 82 02/22/21 13:15 Resp 16 02/22/21 13:15 BP 130/69 02/22/21 13:15 Pulse Ox 99 02/22/21 13:15 Orthostatic Blood Pressure [ 86/50 Sitting] Orthostatic Blood Pressure [ 112/64 Supine] - COMMENTS/OBSERVATIONS Free Text/Narrative:: Pt in ICU report given to Blele Vela RN
[2021-02-22] MEDS ORDERED: Sucralfate 1 GM Tab PO SCH (17:00)
[2021-02-22] MEDS ORDERED: Calcium Gluconate 10% 1 GM/10 ML SDV IV ONE (20:42)
--- NOTE | 2021-02-22 20:51 | PCM.DCSUM1 ---
Discharge Summary - Hospital Course HPI Initial Comments: VIVEK This is a 75M with PMHx noted below including hx of Paulina-en-y presenting for evaluation of melena. Earlier in the day the patient noted dark stool. He endorsed nausea but no hematemesis. He is not on anticoagulation but takes NSAIDS. He denies chest pain, sob, abdominal pain, fever. He denies vomiting. He felt dizzy and weak prior to arrival to the ED. In the ED the patient's hemoglobin was noted to be 7.1. He was given 2 units of PRBC and FFP and ad mitted to the ICU for further evaluation. HOSPITAL COURSE Assessment: This is a 75M with PMHx noted below including hx of Paulina-en-y presenting for evaluation of melena. Earlier in the day the patient noted dark stool. He endorsed nausea but no hematemesis. He is not on anticoagulation but takes NSAIDS. In the ED the patient's hemoglobin was noted to be 7.1. He was given protonix, 2 units of PRBC and FFP and admitted to the ICU for further evaluation. 1. Acute Upper GI Bleed 2. Hx of HTN 3. Hx of BPH 4. Hx of Urinary retention 5. Hx of COPD 6. Hx of CORTNEY 7. Hx of HLD 8. Hx of Gout 9. EDWARD/CKD Cr on admission 3.0->2.4 at discharge 10. Hypernatremia Plan -admit to icu -repeat hgb post transfusion; then q6h hgb -transfuse to keep hgb>8; transfused 2 units of PRBC in ED, 4 additional units PRBC this morning; 2+ additional PRBC being ordered this evening; discharge hgb 6.9 prior to administration of PRBC unit 7&8 is 6.9. -Calcium gluconate -npo -continue PPI Due to recurrent bleeding the patient is being transferred to [facility] for GI evaluation. His case was discussed with Dr. Garcia and Main Surgery Consult; underwent EGD 02/22 Free Text/Narrative Note: EGD completed. - Bleeding marginal ulcer found with adherent blood clot - Epinephrine was used to stem the bleeding - One hemostatic clip was placed in the bleeding edge of the ulcer - At the end of the procedure, the bleeding had stopped Plan - return the patient to ICU for close monitoring - Q6H H/H - continue protonix infusion - Add PO carafate TID and Misoprostol - If patient rebleeds enough to require additional transfusions, then he should be transferred to [place] for further intervention. - patient needs to stop smoking and stop nicotine use Diagnosis: Stroke: No - Discharge Data Discharge Date: 02/22/21 Discharge Disposition: DC/Tfer to Acute Hospital 02 Condition: Stable - Referral to Home Health Primary Care Physician: Praneeth Herrmann MD - Patient Summary/Data Consults: Consultations 02/22/21 07:57 Consult to Physician [CONS] Urgent - Discharge Plan *PRESCRIPTION DRUG MONITORING PROGRAM REVIEWED*: Not Applicable *COPY OF PRESCRIPTION DRUG MONITORING REPORT IN PATIENT CHITO: Not Applicable Home Medications: Home Meds Tamsulosin [Flomax] 0.4 mg PO DAILY 07/28/19 [History] L. Acidophilus/L. Rhamnosus [Probiotic 15 Billion Cell Cap] 1 cap PO DAILY 12/29/20 [History] Potassium Chloride 20 meq PO DAILY 12/29/20 [History] Pramipexole [Mirapex] 1 mg PO BID 12/29/20 [History] Terazosin [Hytrin] 5 mg PO BID 12/29/20 [History] Zolpidem [Ambien] 5 mg PO BEDTIME PRN 12/29/20 [History] allopurinoL [Zyloprim] 100 mg PO DAILY 12/29/20 [History] amLODIPine [Norvasc] 5 mg PO DAILY 12/29/20 [History] buPROPion [Wellbutrin SR] 150 mg PO BID 12/29/20 [History] Acetaminophen [Pain Reliever] 500 mg PO Q8H PRN 01/07/21 [History] Albuterol Sulfate [Albuterol Sulfate Hfa] 2 puff INH Q4H PRN 01/07/21 [History] Calcium Carb/Vitamin D3/Vit K1 [Calcium + Vit D & K Chew] 1 tab PO DAILY 01/07/21 [History] Cyclobenzaprine [Flexeril] 10 mg PO DAILY PRN 01/07/21 [History] atorvaSTATin [Lipitor] 20 mg PO DAILY 01/07/21 [History] oxyCODONE 5 mg PO QID PRN 01/07/21 [History] Forms: ED Department Discharge Referrals: Hreo Madrigal MD [Ordering Only Provider] - Praneeth Herrmann MD [Primary Care Provider] - Patrice Garrett MD [Ordering Only Provider] - - Discharge Summary/Plan Comment DC Time >30 min.: Yes (60 minutes) Total # of Minutes for Discharge Time: 60 - General Info Functional Status: Reports: Pain Controlled - Review of Systems General: Reports: No Symptoms, Weakness HEENT: Reports: No Symptoms Pulmonary: Reports: No Symptoms Cardiovascular: Reports: No Symptoms Gastrointestinal: Reports: Melena Skin: Reports: No Symptoms Neurological: Reports: No Symptoms - Patient Data Vitals - Most Recent: Last Vital Signs Temp 97.3 F 02/22/21 20:43 Pulse 83 02/22/21 16:00 Resp 20 02/22/21 20:43 BP 114/51 L 02/22/21 20:43 Pulse Ox 93 L 02/22/21 20:43 Orthostatic Blood Pressure [ 86/50 Sitting] Orthostatic Blood Pressure [ 112/64 Supine] Weight - Most Recent: 199 lb 3.2 oz I&O - Last 24 hours: Intake & Output 02/22/21 02/22/21 02/22/21 06:59 14:59 22:59 Intake Total 1442 1636 967 Output Total 450 450 850 Balance 992 1186 117 Lab Results - Last 24 hrs: Laboratory Results - last 24 hr 02/21/21 02/21/21 02/21/21 Range/Units 21:57 21:57 21:57 WBC 8.02 (4.23-9.07) K/mm3 RBC 2.62 L (4.63-6.08) M/mm3 Hgb 7.1 L* D (13.7-17.5) gm/dl Hct 23.9 L (40.1-51.0) % MCV 91.2 (79.0-92.2) fl MCH 27.1 (25.7-32.2) pg MCHC 29.7 L (32.2-35.5) g/dl RDW Std Deviation 56.4 H (35.1-43.9) fL Plt Count 168 D (163-337) K/mm3 MPV 11.2 (9.4-12.3) fl Neut % (Auto) (34.0-67.9) % Lymph % (Auto) (21.8-53.1) % [place] % (Auto) (5.3-12.2) % Eos % (Auto) (0.8-7.0) Baso % (Auto) (0.1-1.2) % Neut # (Auto) (1.78-5.38) K/mm3 Lymph # (Auto) (1.32-3.57) K/mm3 [place] # (Auto) (0.30-0.82) K/mm3 Eos # (Auto) (0.04-0.54) K/mm3 Baso # (Auto) (0.01-0.08) K/mm3 Neutrophils % (Manual) 76 H (40-60) % Band Neutrophils % 0 (0-10) % Lymphocytes % (Manual) 14 L (20-40) % Atypical Lymphs % 0 % Monocytes % (Manual) 9 (2-10) % Eosinophils % (Manual) 1 (0.8-7.0) % Basophils % (Manual) 0 L (0.2-1.2) Manual Slide Review Toxic Granulation 2+ moderate Platelet Estimate Adequate Hypochromasia 2+ moderate Poikilocytosis Anisocytosis 2+ moderate Ovalocytes 1+ slight RBC Morph Comment Not Reportable PT (9.7-12.0) SECONDS INR APTT (21.7-31.4) SECONDS Sodium 143 (136-145) mEq/L Potassium 3.8 (3.5-5.1) mEq/L Chloride 104 (98-107) mEq/L Carbon Dioxide 35 H (21-32) mEq/L Anion Gap 7.8 (5-15) BUN 76 H (7-18) mg/dL Creatinine 3.0 H D (0.7-1.3) mg/dL Est Cr Clr Drug Dosing 20.27 mL/min Estimated GFR (MDRD) 20 (>60) mL/min BUN/Creatinine Ratio 25.3 H (14-18) Glucose 130 H (70-99) mg/dL POC Glucose (70-99) mg/dL Calcium 8.1 L (8.5-10.1) mg/dL Total Bilirubin 0.4 (0.2-1.0) mg/dL AST 19 (15-37) U/L ALT 26 (16-63) U/L Alkaline Phosphatase 45 L (46-116) U/L Total Protein 5.6 L (6.4-8.2) g/dl Albumin 2.7 L (3.4-5.0) g/dl Globulin 2.9 gm/dL Albumin/Globulin Ratio 0.9 L (1-2) SARS-CoV-2 RNA (MARCEL) (NEGATIVE) Blood Type A POSITIVE Gel Antibody Screen Negative Crossmatch See Detail 02/21/21 02/21/21 02/22/21 Range/Units 22:50 23:00 00:14 WBC (4.23-9.07) K/mm3 RBC (4.63-6.08) M/mm3 Hgb (13.7-17.5) gm/dl Hct (40.1-51.0) % MCV (79.0-92.2) fl MCH (25.7-32.2) pg MCHC (32.2-35.5) g/dl RDW Std Deviation (35.1-43.9) fL Plt Count (163-337) K/mm3 MPV (9.4-12.3) fl Neut % (Auto) (34.0-67.9) % Lymph % (Auto) (21.8-53.1) % [place] % (Auto) (5.3-12.2) % Eos % (Auto) (0.8-7.0) Baso % (Auto) (0.1-1.2) % Neut # (Auto) (1.78-5.38) K/mm3 Lymph # (Auto) (1.32-3.57) K/mm3 [place] # (Auto) (0.30-0.82) K/mm3 Eos # (Auto) (0.04-0.54) K/mm3 Baso # (Auto) (0.01-0.08) K/mm3 Neutrophils % (Manual) (40-60) % Band Neutrophils % (0-10) % Lymphocytes % (Manual) (20-40) % Atypical Lymphs % % Monocytes % (Manual) (2-10) % Eosinophils % (Manual) (0.8-7.0) % Basophils % (Manual) (0.2-1.2) Manual Slide Review Toxic Granulation Platelet Estimate Hypochromasia Poikilocytosis Anisocytosis Ovalocytes RBC Morph Comment PT 11.4 (9.7-12.0) SECONDS INR 1.07 APTT 25.6 (21.7-31.4) SECONDS Sodium (136-145) mEq/L Potassium (3.5-5.1) mEq/L Chloride (98-107) mEq/L Carbon Dioxide (21-32) mEq/L Anion Gap (5-15) BUN (7-18) mg/dL Creatinine (0.7-1.3) mg/dL Est Cr Clr Drug Dosing mL/min Estimated GFR (MDRD) (>60) mL/min BUN/Creatinine Ratio (14-18) Glucose (70-99) mg/dL POC Glucose (70-99) mg/dL Calcium (8.5-10.1) mg/dL Total Bilirubin (0.2-1.0) mg/dL AST (15-37) U/L ALT (16-63) U/L Alkaline Phosphatase (46-116) U/L Total Protein (6.4-8.2) g/dl Albumin (3.4-5.0) g/dl Globulin gm/dL Albumin/Globulin Ratio (1-2) SARS-CoV-2 RNA (MARCEL) Negative (NEGATIVE) Blood Type Gel Antibody Screen Crossmatch See Detail 02/22/21 02/22/21 02/22/21 Range/Units 06:39 06:39 07:10 WBC 7.25 (4.23-9.07) K/mm3 RBC 2.09 L (4.63-6.08) M/mm3 Hgb 5.8 L* 5.5 L* (13.7-17.5) gm/dl Hct 18.8 L 18.0 L (40.1-51.0) % MCV 90.0 (79.0-92.2) fl MCH 27.8 (25.7-32.2) pg MCHC 30.9 L (32.2-35.5) g/dl RDW Std Deviation 54.7 H (35.1-43.9) fL Plt Count 110 L (163-337) K/mm3 MPV 11.0 (9.4-12.3) fl Neut % (Auto) 76.9 H (34.0-67.9) % Lymph % (Auto) 12.6 L (21.8-53.1) % [place] % (Auto) 8.3 (5.3-12.2) % Eos % (Auto) 1.8 (0.8-7.0) Baso % (Auto) 0.3 (0.1-1.2) % Neut # (Auto) 5.58 H (1.78-5.38) K/mm3 Lymph # (Auto) 0.91 L (1.32-3.57) K/mm3 [place] # (Auto) 0.60 (0.30-0.82) K/mm3 Eos # (Auto) 0.13 (0.04-0.54) K/mm3 Baso # (Auto) 0.02 (0.01-0.08) K/mm3 Neutrophils % (Manual) (40-60) % Band Neutrophils % (0-10) % Lymphocytes % (Manual) (20-40) % Atypical Lymphs % % Monocytes % (Manual) (2-10) % Eosinophils % (Manual) (0.8-7.0) % Basophils % (Manual) (0.2-1.2) Manual Slide Review Abnormal smear Toxic Granulation Platelet Estimate Hypochromasia Poikilocytosis Anisocytosis Ovalocytes RBC Morph Comment PT (9.7-12.0) SECONDS INR APTT (21.7-31.4) SECONDS Sodium 147 H (136-145) mEq/L Potassium 4.0 (3.5-5.1) mEq/L Chloride 110 H (98-107) mEq/L Carbon Dioxide 34 H (21-32) mEq/L Anion Gap 7.0 (5-15) BUN 75 H (7-18) mg/dL Creatinine 2.4 H (0.7-1.3) mg/dL Est Cr Clr Drug Dosing 25.33 mL/min Estimated GFR (MDRD) 26 (>60) mL/min BUN/Creatinine Ratio 31.3 H (14-18) Glucose 121 H (70-99) mg/dL POC Glucose (70-99) mg/dL Calcium 7.6 L (8.5-10.1) mg/dL Total Bilirubin 0.6 (0.2-1.0) mg/dL AST 11 L (15-37) U/L ALT 19 (16-63) U/L Alkaline Phosphatase 32 L (46-116) U/L Total Protein 4.2 L (6.4-8.2) g/dl Albumin 2.0 L (3.4-5.0) g/dl Globulin 2.2 gm/dL Albumin/Globulin Ratio 0.9 L (1-2) SARS-CoV-2 RNA (MARCEL) (NEGATIVE) Blood Type Gel Antibody Screen Crossmatch 02/22/21 02/22/21 02/22/21 Range/Units 10:34 13:12 18:15 WBC (4.23-9.07) K/mm3 RBC (4.63-6.08) M/mm3 Hgb 8.2 L D 8.1 L (13.7-17.5) gm/dl Hct 26.6 L 25.2 L (40.1-51.0) % MCV (79.0-92.2) fl MCH (25.7-32.2) pg MCHC (32.2-35.5) g/dl RDW Std Deviation (35.1-43.9) fL Plt Count (163-337) K/mm3 MPV (9.4-12.3) fl Neut % (Auto) (34.0-67.9) % Lymph % (Auto) (21.8-53.1) % [place] % (Auto) (5.3-12.2) % Eos % (Auto) (0.8-7.0) Baso % (Auto) (0.1-1.2) % Neut # (Auto) (1.78-5.38) K/mm3 Lymph # (Auto) (1.32-3.57) K/mm3 [place] # (Auto) (0.30-0.82) K/mm3 Eos # (Auto) (0.04-0.54) K/mm3 Baso # (Auto) (0.01-0.08) K/mm3 Neutrophils % (Manual) (40-60) % Band Neutrophils % (0-10) % Lymphocytes % (Manual) (20-40) % Atypical Lymphs % % Monocytes % (Manual) (2-10) % Eosinophils % (Manual) (0.8-7.0) % Basophils % (Manual) (0.2-1.2) Manual Slide Review Toxic Granulation Platelet Estimate Hypochromasia Poikilocytosis Anisocytosis Ovalocytes RBC Morph Comment PT (9.7-12.0) SECONDS INR APTT (21.7-31.4) SECONDS Sodium (136-145) mEq/L Potassium (3.5-5.1) mEq/L Chloride (98-107) mEq/L Carbon Dioxide (21-32) mEq/L Anion Gap (5-15) BUN (7-18) mg/dL Creatinine (0.7-1.3) mg/dL Est Cr Clr Drug Dosing mL/min Estimated GFR (MDRD) (>60) mL/min BUN/Creatinine Ratio (14-18) Glucose (70-99) mg/dL POC Glucose 104 H (70-99) mg/dL Calcium (8.5-10.1) mg/dL Total Bilirubin (0.2-1.0) mg/dL AST (15-37) U/L ALT (16-63) U/L Alkaline Phosphatase (46-116) U/L Total Protein (6.4-8.2) g/dl Albumin (3.4-5.0) g/dl Globulin gm/dL Albumin/Globulin Ratio (1-2) SARS-CoV-2 RNA (MARCEL) (NEGATIVE) Blood Type Gel Antibody Screen Crossmatch 02/22/21 Range/Units 19:03 WBC (4.23-9.07) K/mm3 RBC (4.63-6.08) M/mm3 Hgb 6.9 L* (13.7-17.5) gm/dl Hct 21.8 L (40.1-51.0) % MCV (79.0-92.2) fl MCH (25.7-32.2) pg MCHC (32.2-35.5) g/dl RDW Std Deviation (35.1-43.9) fL Plt Count (163-337) K/mm3 MPV (9.4-12.3) fl Neut % (Auto) (34.0-67.9) % Lymph % (Auto) (21.8-53.1) % [place] % (Auto) (5.3-12.2) % Eos % (Auto) (0.8-7.0) Baso % (Auto) (0.1-1.2) % Neut # (Auto) (1.78-5.38) K/mm3 Lymph # (Auto) (1.32-3.57) K/mm3 [place] # (Auto) (0.30-0.82) K/mm3 Eos # (Auto) (0.04-0.54) K/mm3 Baso # (Auto) (0.01-0.08) K/mm3 Neutrophils % (Manual) (40-60) % Band Neutrophils % (0-10) % Lymphocytes % (Manual) (20-40) % Atypical Lymphs % % Monocytes % (Manual) (2-10) % Eosinophils % (Manual) (0.8-7.0) % Basophils % (Manual) (0.2-1.2) Manual Slide Review Toxic Granulation Platelet Estimate Hypochromasia Poikilocytosis Anisocytosis Ovalocytes RBC Morph Comment PT (9.7-12.0) SECONDS INR APTT (21.7-31.4) SECONDS Sodium (136-145) mEq/L Potassium (3.5-5.1) mEq/L Chloride (98-107) mEq/L Carbon Dioxide (21-32) mEq/L Anion Gap (5-15) BUN (7-18) mg/dL Creatinine (0.7-1.3) mg/dL Est Cr Clr Drug Dosing mL/min Estimated GFR (MDRD) (>60) mL/min BUN/Creatinine Ratio (14-18) Glucose (70-99) mg/dL POC Glucose (70-99) mg/dL Calcium (8.5-10.1) mg/dL Total Bilirubin (0.2-1.0) mg/dL AST (15-37) U/L ALT (16-63) U/L Alkaline Phosphatase (46-116) U/L Total Protein (6.4-8.2) g/dl Albumin (3.4-5.0) g/dl Globulin gm/dL Albumin/Globulin Ratio (1-2) SARS-CoV-2 RNA (MARCEL) (NEGATIVE) Blood Type Gel Antibody Screen Crossmatch Med Orders - Current: Current Medications Albuterol (Albuterol 6.7 Gm Inhaler) 0 gm INH Q4H PRN PRN Reason: Shortness of Breath Hydromorphone HCl (Hydromorphone 0.5 Mg/0.5 Ml Syringe) 0.5 mg IVPUSH Q2H PRN PRN Reason: Pain (severe 7-10) Last Admin: 02/22/21 20:30 Dose: 0.5 mg Documented by: Pantoprazole Sodium 80 mg/ (Sodium Chloride) 100 mls @ 8 mls/hr IV Q10H [facility] Last Admin: 02/22/21 20:34 Dose: Not Given Documented by: Sodium Chloride (Normal Saline) 250 mls @ 50 mls/hr IV ASDIRECTED [facility] Last Admin: 02/22/21 20:40 Dose: 50 mls/hr Documented by: Lactated Ringer's (Ringers, Lactated) 1,000 mls @ 100 [facility] Last Admin: 02/22/21 08:38 Dose: 100 mls/hr Documented by: Misoprostol (Misoprostol 100 Mcg Tab) 100 mcg PO Q6H [facility] Last Admin: 02/22/21 20:33 Dose: Not Given Documented by: Ondansetron HCl (Ondansetron 4 Mg/2 Ml Sdv) 4 mg IV Q4H PRN PRN Reason: Nausea/Vomiting Sucralfate (Sucralfate 1 Gm Tab) 1 gm PO TIDAC [facility] Last Admin: 02/22/21 16:33 Dose: Not Given Documented by: Discontinued Medications Calcium Gluconate (Calcium Gluconate 10% 1 Gm/10 Ml Sdv) 1 gm IV ONETIME ONE Stop: 02/22/21 20:43 Epinephrine HCl (Epinephrine 1 Mg/Ml Sdv) Confirm Administered Dose 1 mg .ROUTE .STK-MED ONE Stop: 02/22/21 11:48 Last Admin: 02/22/21 12:20 Dose: 0.2 mg Documented by: Fentanyl (Fentanyl 100 Mcg/2 Ml Sdv) Confirm Administered Dose 100 mcg .ROUTE .STK-MED ONE Stop: 02/22/21 11:29 Sodium Chloride (Normal Saline) 1,000 mls @ 150 mls/hr IV ASDIRECTED [facility] Last Admin: 02/21/21 23:12 Dose: 150 mls/hr Documented by: Sodium Chloride (Normal Saline) 1,000 mls @ 999 mls/hr IV ONETIME ONE Stop: 02/22/21 00:40 Last Admin: 02/21/21 23:57 Dose: 999 mls/hr Documented by: Lactated Ringer's (Ringers, Lactated) 500 mls @ 500 mls/hr IV .BOLUS ONE Stop: 02/22/21 08:31 Last Admin: 02/22/21 07:48 Dose: 500 mls/hr Documented by: Lidocaine HCl (Xylocaine-Mpf 1%) Confirm Administered Dose 8 mls @ as directed .ROUTE .STK-MED ONE Stop: 02/22/21 11:28 Metoclopramide HCl (Metoclopramide 10 Mg/2 Ml Sdv) Confirm Administered Dose 10 mg .ROUTE .STK-MED ONE Stop: 02/22/21 11:53 Misoprostol (Misoprostol 100 Mcg Tab) 100 mcg PO BID [facility] Ondansetron HCl (Ondansetron 4 Mg/2 Ml Sdv) Confirm Administered Dose 4 mg .ROUTE .STK-MED ONE Stop: 02/22/21 11:53 Pantoprazole Sodium (Pantoprazole 40 Mg Vial) 80 mg IVPUSH ONETIME STA Stop: 02/21/21 22:51 Last Admin: 02/21/21 23:14 Dose: 80 mg Documented by: Propofol (Propofol 200 Mg/20 Ml Sdv) Confirm Administered Dose 400 mg .ROUTE .STK-MED ONE Stop: 02/22/21 11:28 Propofol (Propofol 200 Mg/20 Ml Sdv) Confirm Administered Dose 200 mg .ROUTE .STK-MED ONE Stop: 02/22/21 12:06 - Exam Quality Assessment: Reports: Supplemental Oxygen General: Reports: Alert, Oriented HEENT: Reports: EOMI, Mucous Membr. Moist/[place] Neck: Reports: Supple Lungs: Reports: Clear to Auscultation, Normal Respiratory Effort Cardiovascular: Reports: Regular Rate, Regular Rhythm GI/Abdominal Exam: Soft, Non-Tender, No Distention Back Exam: Reports: Normal Inspection Extremities: Normal Inspection Skin: Reports: Warm, Dry, Intact Neurological: Reports: No New Focal Deficit Psy/Mental Status: Reports: Alert, Normal Affect, Normal Mood *Q Meaningful Use (DIS) - VTE *Q VTE Criteria *Q: 1
[2021-02-22] MEDS ORDERED: Misoprostol 100 MCG Tab PO SCH (21:00)
[2021-02-23] MEDS: Pantoprazole 80 MG in Sodium Chloride 0.9% 100 ML IV SCH (00:56)
[2021-02-23] MEDS: HYDROmorphone 0.5 MG/0.5 ML Syringe IVPUSH PRN (01:19)
[2021-02-23] MEDS: Misoprostol 100 MCG Tab PO SCH (01:23)
== END 2021-02-23 01:40 | DRG 811 ==
LOC: JD.ED 21:16 → JD.ICU 02-22 01:03
PROVIDERS: ADMIT Hospitalist; ATTEND Hospitalist
PROC: 30233N1 Transfusion of Nonautologous Red Blood Cells into Peripheral Vein, Percutaneous Approach (ICD-10-PCS; principal; 2021-02-22)
PROC: 30233K1 Transfusion of Nonautologous Frozen Plasma into Peripheral Vein, Percutaneous Approach (ICD-10-PCS; 2021-02-22)
PROC: 0W3P8ZZ Control Bleeding in Gastrointestinal Tract, Via Natural or Artificial Opening Endoscopic (ICD-10-PCS; 2021-02-23)
DX: K92.1 Melena (principal); E64.9 Sequelae of unspecified nutritional deficiency; D62 Acute posthemorrhagic anemia; K25.4 Chronic or unspecified gastric ulcer with hemorrhage; N17.9 Acute kidney failure, unspecified; E87.0 Hyperosmolality and hypernatremia; N40.1 Benign prostatic hyperplasia with lower urinary tract symptoms; R33.8 Other retention of urine; J44.9 Chronic obstructive pulmonary disease, unspecified; R33.9 Retention of urine, unspecified; G47.33 Obstructive sleep apnea (adult) (pediatric); E78.5 Hyperlipidemia, unspecified; M10.9 Gout, unspecified; K44.9 Diaphragmatic hernia without obstruction or gangrene; I12.9 Hypertensive chronic kidney disease with stage 1 through stage 4 chronic kidney disease, or unspecified chronic kidney disease; N18.9 Chronic kidney disease, unspecified; Z20.822 Contact with and (suspected) exposure to COVID-19; F17.210 Nicotine dependence, cigarettes, uncomplicated; H54.7 Unspecified visual loss; E78.00 Pure hypercholesterolemia, unspecified; F32.9 Major depressive disorder, single episode, unspecified; E11.22 Type 2 diabetes mellitus with diabetic chronic kidney disease; Z86.19 Personal history of other infectious and parasitic diseases; Z90.49 Acquired absence of other specified parts of digestive tract; Z98.890 Other specified postprocedural states; Z98.84 Bariatric surgery status; Z79.899 Other long term (current) drug therapy; Z86.010 Personal history of colon polyps; Z98.1 Arthrodesis status; D63.1 Anemia in chronic kidney disease
CPT/HCPCS: 36415; 36430; 80053; 85007; 85027; 85610; 85730; 86850; 86900; 86901; 86922 ×4; 93005; C9113 ×2; J7030 ×2; J7050; P9016; U0002; 00731; 82947; 85014; 85018; 85025; 93010; 96365; 96366; 99285; 99285-25; J0171; J0610; J1170; J2405; J2704; J2765; J3010; J7120; P9017

== ENCOUNTER 2021-03-17 04:00 | Emergency (ER) | payer MEDICAID ==
--- NOTE | 2021-03-17 04:54 | EDM.PDOC ---
ED HPI GENERAL MEDICAL PROBLEM - General Chief Complaint: Respiratory Problem Stated Complaint: SOB LOW OXYGEN Time Seen by Provider: 03/17/21 04:26 Source of Information: Reports: Patient History Limitations: Reports: No Limitations - History of Present Illness INITIAL COMMENTS - FREE TEXT/NARRATIVE: Mr. Juarez is a very pleasant 76-year-old gentleman with a past medical his tory significant for COPD, who now presents to the ED stating that he woke around 03:00 this morning with shortness of breath. He took an inhalation of what sounds to be an inhaled steroid ("You have to wash your mouth out afterwards"), which did not help. He has albuterol available, but did not take any, believing that he was not supposed to take both. He checked his oxygen saturation on his finger pulse oximeter, finding it to be as low as 80%. He then drove himself to the ED. The patient is not sure if he has been wheezing today. He denies a recent cough or fever. He states that he has had similar symptoms many times in the past, but does not know what the diagnosis was The patient has a presumptive history of COPD. He does not recall that he has ever undergone PFTs. He states that he has been prescribed home oxygen in the past, but he found his SpO2 to be 92 to 93% on room air, therefore he got rid of it. Here in the ED this morning, the patient's initial BP is found to be slightly elevated at 142/80, with tachypnea of 28 rpm. He is afebrile, saturating 82% on room air, 87% on 2.5 L of oxygen per nasal cannula. I increased his O2 to 3 L, and he is now saturating 92%. He appears to be relatively comfortable, in no acute distress. The patient states that he was recently discharged from [facility] following a 6-day admission for an upper GI bleed. He denies having a recent fever, chills, sore throat, ear pain, nasal or sinus congestion, cough, chest pain, palpitations, nausea, vomiting, constipation, diarrhea, abdominal pain, urinary symptoms, recent weight gain or weight loss, recent bloody bowel movements or black bowel movements, recent joint aches, headaches, or rashes. The patient's PCP is Dr. Praneeth Herrmann. His Chief Investigator is Dr. Prasad Rizo. Is cardiology midlevel is ESTEBAN Lang. His Urologist is Dr. Hero Madrigal. His Neurosurgeon is Dr. Jet Garrett. He has received 2 COVID vaccinations. - Related Data Allergies Allergy/AdvReac Type Severity Reaction Status Date / Time No Known Allergies Allergy Verified 03/17/21 04:12 Home Meds: Home Meds Tamsulosin [Flomax] 0.4 mg PO DAILY 07/28/19 [History] L. Acidophilus/L. Rhamnosus [Probiotic 15 Billion Cell Cap] 1 cap PO DAILY 12/29/20 [History] Potassium Chloride 20 meq PO DAILY 12/29/20 [History] Pramipexole [Mirapex] 1 mg PO BID 12/29/20 [History] Terazosin [Hytrin] 5 mg PO BID 12/29/20 [History] Zolpidem [Ambien] 5 mg PO BEDTIME PRN 12/29/20 [History] allopurinoL [Zyloprim] 100 mg PO DAILY 12/29/20 [History] amLODIPine [Norvasc] 5 mg PO DAILY 12/29/20 [History] buPROPion [Wellbutrin SR] 150 mg PO BID 12/29/20 [History] Acetaminophen [Pain Reliever] 500 mg PO Q8H PRN 01/07/21 [History] Albuterol Sulfate [Albuterol Sulfate Hfa] 2 puff INH Q4H PRN 01/07/21 [History] Calcium Carb/Vitamin D3/Vit K1 [Calcium + Vit D & K Chew] 1 tab PO DAILY 01/07/21 [History] Cyclobenzaprine [Flexeril] 10 mg PO DAILY PRN 01/07/21 [History] atorvaSTATin [Lipitor] 20 mg PO DAILY 01/07/21 [History] oxyCODONE 5 mg PO QID PRN 01/07/21 [History] Past Medical History HEENT History: Reports: Impaired Vision (wears glasses) Cardiovascular History: Reports: High Cholesterol, Hypertension Respiratory History: Reports: COPD, Sleep Apnea Gastrointestinal History: Reports: Colon Polyp Genitourinary History: Reports: BPH, Chronic Renal Insuffiency, Retention, Uri nary Musculoskeletal History: Reports: Fracture (left wrist) 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) Psychiatric History: Reports: Depression Endocrine/Metabolic History: Reports: Diabetes, Type II (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 gastric bypass 2011), Obesity/BMI 30+ - Infectious Disease History Infectious Disease History: Reports: Chicken Pox, Measles, Mumps - Past Surgical History HEENT Surgical History: Reports: Eye Surgery (bilateral lower eyelid lift) GI Surgical History: Reports: Appendectomy, Bariatric Procedure (gastric bypass 2011), Colonoscopy (x 2) Neurological Surgical History: Reports: C-Spine (ACDF), Lumbar Spine (laminectomy, L5-L7 fusion) Social & Family History - Tobacco Use Tobacco Use Status *Q: Current Every Day Tobacco User Years of Tobacco use: 63 Packs/Tins Daily: 0.2 Packs/Tins Daily Comment: Down from 4 ppd Tobacco Use Comment: Started smoking 1956 - Caffeine Use Caffeine Use: Reports: Energy Drinks Caffeine Use Comment: very rarely - Alcohol Use Alcohol Use History: Yes Alcohol Use Frequency: Rarely - Recreational Drug Use Recreational Drug Use: No - Living Situation & Occupation Living situation: Reports: , Alone Occupation: Retired ED ROS GENERAL - Review of Systems Review Of Systems: Comprehensive ROS is negative, except as noted in HPI. ED EXAM, GENERAL - Physical Exam Exam: See Below Exam Limited By: No Limitations General Appearance: Alert, WD/WN, No Apparent Distress Eye Exam: Bilateral Eye: EOMI, Normal Inspection Ears: Normal External Exam, Hearing Grossly Normal Nose: Normal Inspection Throat/Mouth: Normal Inspection, Normal Lips, Normal Voice, No Airway Compromise Head: Atraumatic, Normocephalic Neck: Normal Inspection, Full Range of Motion Respiratory/Chest: No Respiratory Distress, No Accessory Muscle Use, Decreased Breath Sounds, Wheezing (expiratory, throughout), Prolonged Expiration (mild). No: Crackles, Rhonchi, Stridor Cardiovascular: Normal Peripheral Pulses, Regular Rate, Rhythm, No Gallop, No JVD, No Murmur, No Rub Peripheral Pulses: 3+: Radial (L), Radial (R) GI/Abdominal: Normal Bowel Sounds, Soft, Non-Tender, No Organomegaly, No Distention, No Abnormal Bruit, No Mass Back Exam: Normal Inspection, Full Range of Motion, NT Extremities: Normal Inspection, Normal Range of Motion, Normal Capillary Refill Neurological: Alert, Oriented, Normal Cognition, No Motor/Sensory Deficits Psychiatric: Normal Affect Skin Exam: Warm, Dry, Intact, Normal Color, No Rash #1 Interpretation EKG Date: 03/17/21 Time: 04:50 Rhythm: Other (Sinus bradycardia with single PAC) Rate (Beats/Min): 52 [place]: Normal P-Wave: Present (1st degree AVB) QRS: RBBB ST-T: Normal QT: Normal Comparison: Change From Previous EKG (1st degree AVB new since 02/21/2021) Course - Vital Signs Last Recorded V/S: Last Vital Signs Temp 36.1 C 03/17/21 04:08 Pulse 67 03/17/21 04:08 Resp 28 H 03/17/21 04:08 BP 142/80 H 03/17/21 04:08 Pulse Ox 95 03/17/21 06:57 - Orders/Labs/Meds Orders: Active Orders 24 hr Category Date Time Status RT Aerosol Therapy [RC] ASDIRECTED Care 03/17/21 04:42 Active RT Aerosol Therapy [RC] ASDIRECTED Care 03/17/21 06:40 Active Chest 1V Frontal [CR] Stat Exams 03/17/21 04:39 Taken BLOOD CULTURE [MREF] Stat Lab 03/17/21 04:50 Received BLOOD CULTURE [MREF] Stat Lab 03/17/21 05:08 Received Blood Culture x2 Reflex Set [OM.PC] Stat Oth 03/17/21 04:39 Ordered Labs: Laboratory Tests 03/17/21 03/17/21 03/17/21 Range/Units 04:15 04:15 04:15 WBC 7.53 (4.23-9.07) K/mm3 RBC 3.72 L (4.63-6.08) M/mm3 Hgb 10.4 L (13.7-17.5) gm/dl Hct 36.3 L (40.1-51.0) % MCV 97.6 H D (79.0-92.2) fl MCH 28.0 (25.7-32.2) pg MCHC 28.7 L (32.2-35.5) g/dl RDW Std Deviation 58.1 H (35.1-43.9) fL Plt Count 269 D (163-337) K/mm3 MPV 10.9 (9.4-12.3) fl Neutrophils % (Manual) 64 H (40-60) % Band Neutrophils % 0 (0-10) % Lymphocytes % (Manual) 21 (20-40) % Atypical Lymphs % 0 % Monocytes % (Manual) 11 H (2-10) % Eosinophils % (Manual) 4 (0.8-7.0) % Basophils % (Manual) 0 L (0.2-1.2) Platelet Estimate Adequate Hypochromasia 2+ moderate Poikilocytosis 1+ slight Anisocytosis 2+ moderate Tear Drop Cells 1+ slight Ovalocytes 2+ moderate RBC Morph Comment Abnormal D-Dimer, Quantitative 0.74 H (0.19-0.50) mg/L Puncture Site ABG pH (7.35-7.45) ABG pCO2 (35.0-45.0) mmHg ABG pO2 (80.0-100.0) mmHg ABG HCO3 (22.0-26.0) meq/L ABG O2 Saturation (96.0-97.0) % ABG Base Excess (-2-2.0) Antonio Test A-a Gradient mmHg O2 Delivery Device Oxygen Flow Rate FiO2 (21.00-100.00) % Sodium 146 H (136-145) mEq/L Potassium 3.8 (3.5-5.1) mEq/L Chloride 109 H (98-107) mEq/L Carbon Dioxide 37 H (21-32) mEq/L Anion Gap 3.8 L (5-15) BUN 29 H D (7-18) mg/dL Creatinine 1.9 H (0.7-1.3) mg/dL Est Cr Clr Drug Dosing 32.56 mL/min Estimated GFR (MDRD) 35 (>60) mL/min BUN/Creatinine Ratio 15.3 (14-18) Glucose 92 (70-99) mg/dL Lactic Acid (0.4-2.0) mmol/L Calcium 8.5 (8.5-10.1) mg/dL Total Bilirubin 0.3 (0.2-1.0) mg/dL AST 27 (15-37) U/L ALT 46 (16-63) U/L Alkaline Phosphatase 64 (46-116) U/L Troponin I 0.017 (0.00-0.056) ng/mL NT-Pro-B Natriuret Pep (0-450) pg/mL Total Protein 6.4 (6.4-8.2) g/dl Albumin 3.0 L (3.4-5.0) g/dl Globulin 3.4 gm/dL Albumin/Globulin Ratio 0.9 L (1-2) SARS-CoV-2 RNA (MARCEL) (NEGATIVE) 03/17/21 03/17/21 03/17/21 Range/Units 04:15 04:45 04:50 WBC (4.23-9.07) K/mm3 RBC (4.63-6.08) M/mm3 Hgb (13.7-17.5) gm/dl Hct (40.1-51.0) % MCV (79.0-92.2) fl MCH (25.7-32.2) pg MCHC (32.2-35.5) g/dl RDW Std Deviation (35.1-43.9) fL Plt Count (163-337) K/mm3 MPV (9.4-12.3) fl Neutrophils % (Manual) (40-60) % Band Neutrophils % (0-10) % Lymphocytes % (Manual) (20-40) % Atypical Lymphs % % Monocytes % (Manual) (2-10) % Eosinophils % (Manual) (0.8-7.0) % Basophils % (Manual) (0.2-1.2) Platelet Estimate Hypochromasia Poikilocytosis Anisocytosis Tear Drop Cells Ovalocytes RBC Morph Comment D-Dimer, Quantitative (0.19-0.50) mg/L Puncture Site ABG pH (7.35-7.45) ABG pCO2 (35.0-45.0) mmHg ABG pO2 (80.0-100.0) mmHg ABG HCO3 (22.0-26.0) meq/L ABG O2 Saturation (96.0-97.0) % ABG Base Excess (-2-2.0) Antonio Test A-a Gradient mmHg O2 Delivery Device Oxygen Flow Rate FiO2 (21.00-100.00) % Sodium (136-145) mEq/L Potassium (3.5-5.1) mEq/L Chloride (98-107) mEq/L Carbon Dioxide (21-32) mEq/L Anion Gap (5-15) BUN (7-18) mg/dL Creatinine (0.7-1.3) mg/dL Est Cr Clr Drug Dosing mL/min Estimated GFR (MDRD) (>60) mL/min BUN/Creatinine Ratio (14-18) Glucose (70-99) mg/dL Lactic Acid 0.5 (0.4-2.0) mmol/L Calcium (8.5-10.1) mg/dL Total Bilirubin (0.2-1.0) mg/dL AST (15-37) U/L ALT (16-63) U/L Alkaline Phosphatase (46-116) U/L Troponin I (0.00-0.056) ng/mL NT-Pro-B Natriuret Pep 5107 H (0-450) pg/mL Total Protein (6.4-8.2) g/dl Albumin (3.4-5.0) g/dl Globulin gm/dL Albumin/Globulin Ratio (1-2) SARS-CoV-2 RNA (MARCEL) Negative (NEGATIVE) 03/17/21 Range/Units 05:00 WBC (4.23-9.07) K/mm3 RBC (4.63-6.08) M/mm3 Hgb (13.7-17.5) gm/dl Hct (40.1-51.0) % MCV (79.0-92.2) fl MCH (25.7-32.2) pg MCHC (32.2-35.5) g/dl RDW Std Deviation (35.1-43.9) fL Plt Count (163-337) K/mm3 MPV (9.4-12.3) fl Neutrophils % (Manual) (40-60) % Band Neutrophils % (0-10) % Lymphocytes % (Manual) (20-40) % Atypical Lymphs % % Monocytes % (Manual) (2-10) % Eosinophils % (Manual) (0.8-7.0) % Basophils % (Manual) (0.2-1.2) Platelet Estimate Hypochromasia Poikilocytosis Anisocytosis Tear Drop Cells Ovalocytes RBC Morph Comment D-Dimer, Quantitative (0.19-0.50) mg/L Puncture Site Lt radial ABG pH 7.34 L (7.35-7.45) ABG pCO2 62.0 H (35.0-45.0) mmHg ABG pO2 78.0 L (80.0-100.0) mmHg ABG HCO3 32.8 H (22.0-26.0) meq/L ABG O2 Saturation 95.2 L (96.0-97.0) % ABG Base Excess 6.3 H (-2-2.0) Antonio Test Positive A-a Gradient 72 mmHg O2 Delivery Device Nasal cannula Oxygen Flow Rate 3.0 FiO2 32.00 (21.00-100.00) % Sodium (136-145) mEq/L Potassium (3.5-5.1) mEq/L Chloride (98-107) mEq/L Carbon Dioxide (21-32) mEq/L Anion Gap (5-15) BUN (7-18) mg/dL Creatinine (0.7-1.3) mg/dL Est Cr Clr Drug Dosing mL/min Estimated GFR (MDRD) (>60) mL/min BUN/Creatinine Ratio (14-18) Glucose (70-99) mg/dL Lactic Acid (0.4-2.0) mmol/L Calcium (8.5-10.1) mg/dL Total Bilirubin (0.2-1.0) mg/dL AST (15-37) U/L ALT (16-63) U/L Alkaline Phosphatase (46-116) U/L Troponin I (0.00-0.056) ng/mL NT-Pro-B Natriuret Pep (0-450) pg/mL Total Protein (6.4-8.2) g/dl Albumin (3.4-5.0) g/dl Globulin gm/dL Albumin/Globulin Ratio (1-2) SARS-CoV-2 RNA (MARCEL) (NEGATIVE) Meds: Medications Discontinued Medications Generic Name Dose Route Start Last Admin Trade Name Shade PRN Reason Stop Dose Admin Albuterol 2.5 mg 03/17/21 06:40 03/17/21 06:57 Albuterol 0.083% 2.5 Mg/3 Ml Neb Soln NEB 03/17/21 06:41 2.5 mg ONETIME ONE Administration Albuterol/Ipratropium 3 ml 03/17/21 04:41 03/17/21 04:57 Albuterol/Ipratropium 3.0-0.5 Mg/3 Ml Neb Soln NEB 03/17/21 04:42 3 ml ONETIME ONE Administration - Re-Assessments/Exams Free Text/Narrative Re-Assessment/Exam: 03/17/21 04:42 The patient has diffuse expiratory wheezing and hypoxemia, most consistent with a COPD exacerbation. It sounds like he took a steroid MDI at home, which did not help (and may have, in fact, made matters worse). I have ordered a work-up that includes numerous blood tests, 2 sets of blood cultures, an ABG, a swab for the SARS-CoV-2 virus, a portable chest x-ray, and an ECG. In the meantime, the patient will be given a DuoNeb, to see if we can improve his condition. Since he is status-post a gastric bypass, I would prefer to avoid steroids, if possible. 03/17/21 05:18 Portable chest radiograph reviewed. Poor inspiratory effort. Elevated right hemidiaphragm. The cardiac silhouette is within normal limits. No pulmonary vascular congestion. No pleural effusions seen on this AP view. There may be bilateral hazy infiltrates versus increased lung density due to poor inspiratory effort. No pneumothorax. Aortosclerosis noted. Cervical hardware noted. Formal read per the Radiologist pending. 03/17/21 06:33 The patient's CBC is remarkable for an H/H mildly depressed at 10.4/36.3, with remainder of his CBC being unremarkable. His CMP is remarkable for slight hypernatremia of 146, a bicarbonate elevated at 37 with an anion gap depressed at 3.8, a BUN/Cr elevated at 29/1.9, with remainder of his CMP being unremarkable. His lactic acid level is within normal limits at 0.5. His troponin is within normal limits at 0.017. His D-dimer is mildly elevated at 0.74. His pro-BNP is moderately elevated at 5107. His ABG demonstrates a primary respiratory acidosis with secondary metabolic alkalosis. Review of prior labs finds that the patient's bicarbonate was 34, with a BUN/Cr of 75/2.4 on 02/22/2021. The patient's secondary metabolic alkalosis appears to be intravascular volume contraction; he is dry. 03/17/21 06:41 Test results discussed with the patient. He states that his breathing feels better, but on auscultation, he still has diffuse expiratory wheezes. I have ordered an albuterol neb. 03/17/21 07:44 I reevaluated the patient. His lungs do not sound great, but they do sound better, and the patient states that he feels a lot better, and that he would like to go home. The problem is his oxygen requirement. At present, he is saturating 93% on 3 L of oxygen per nasal cannula. I turned it off to see if he still requires supplemental oxygen, but very quickly dropped to 86% before I turned it back on. I currently have him on 2 L of oxygen per nasal cannula. The problem is that, today being Day, the supplemental oxygen company is only providing oxygen for patients who require for COVID-19. Mr. Juarez does not have COVID-19, therefore we would not be able to arrange for him to get supplemental oxygen today. We will therefore need placement to observation, and have supplemental oxygen arranged for him tomorrow. The patient is not excited about this, but agreed. 03/17/21 07:[address] Orozco at 07:49. He is willing to accept the patient for placement into observation, however, we are being told that while there is bed availability with staffing today, there will not be available staffing tonight, therefore the floor cannot accept him. We will therefore keep him here in the ED, but see if we can arrange for more comfortable accommodations - a hospital bed or recliner, for example. I will turn the patient over to Dr. Alexander for the day, for change of shift. I will be back again tonight. 03/17/21 08:01 Notified by Reena GRAF that the patient is able to receive supplemental oxygen today, however, there is a cost. She went and talked to him about the cost, and the patient reported that he has an oxygen concentrator in the trunk of his car, still unboxed. He was going to send it back, but did not have the money for shipping, therefore he still has it. I will therefore be able to discharge the patient home with the recommendation that he take 2.5 to 3 L of supplemental oxygen continuously. He should then follow-up with his PCP at the next available appointment. Departure - Departure Time of Disposition: 08:04 Disposition: Home, Self-Care 01 Condition: Good Clinical Impression: COPD exacerbation, Hypoxemia - Discharge Information *PRESCRIPTION DRUG MONITORING PROGRAM REVIEWED*: Not Applicable *COPY OF PRESCRIPTION DRUG MONITORING REPORT IN PATIENT CHITO: Not Applicable Referrals: Praneeth Herrmann MD [Primary Care Provider] - Hero Madrigal MD [Ordering Only Provider] - Patrice Garrett MD [Ordering Only Provider] - Mars Rizo MD [Ordering Only Provider] - Eufemia Turpin PA-C [Ordering Only Provider] - Forms: ED Department Discharge Additional Instructions: You were seen in the emergency room after waking up with shortness of breath and finding your oxygen level to be low. Work-up in the ER included numerous blood tests, 2 sets of blood cultures, an arterial blood gas, a swab for the SARS-CoV-2 virus, a chest x-ray, and an ECG. Your work-up found that you are suffering from a COPD exacerbation. Your symptoms improved after you were given a DuoNeb and an albuterol neb. At this time, you require 2.5 to 3 L of supplemental oxygen in order to maintain an adequate oxygen level. This can be achieved using an oxygen concentrator. We strongly recommend that you follow-up with your PCP, Dr. Praneeth Herrmann, at the next available appointment. If any other problems, please do not hesitate to return to the ER. Sepsis Event Note (ED) - Evaluation Sepsis Screening Result: No Definite Risk - Focused Exam Vital Signs: Vital Signs Temp Pulse Resp BP Pulse Ox Pulse Ox 03/17/21 06:57 95 03/17/21 05:08 95 03/17/21 04:51 92 L 03/17/21 04:15 92 L 03/17/21 04:08 36.1 C 67 28 H 142/80 H 82 L - My Orders Last 24 Hours: My Active Orders 03/17/21 04:39 Chest 1V Frontal [CR] Stat Blood Culture x2 Reflex Set [OM.PC] Stat 03/17/21 04:42 RT Aerosol Therapy [RC] ASDIRECTED 03/17/21 04:50 BLOOD CULTURE [MREF] Stat 03/17/21 05:08 BLOOD CULTURE [MREF] Stat 03/17/21 06:40 RT Aerosol Therapy [RC] ASDIRECTED - Assessment/Plan Last 24 Hours: My Active Orders 03/17/21 04:39 Chest 1V Frontal [CR] Stat Blood Culture x2 Reflex Set [OM.PC] Stat 03/17/21 04:42 RT Aerosol Therapy [RC] ASDIRECTED 03/17/21 04:50 BLOOD CULTURE [MREF] Stat 03/17/21 05:08 BLOOD CULTURE [MREF] Stat 03/17/21 06:40 RT Aerosol Therapy [RC] ASDIRECTED
[2021-03-17] MEDS: Albuterol/Ipratropium 3.0-0.5 MG/3 ML Neb Soln NEB ONE (04:57)
[2021-03-17] MEDS: Albuterol 0.083% 2.5 MG/3 ML Neb Soln NEB ONE (06:57)
--- NOTE | 2021-03-17 15:38 | CR ---
Chest: Portable view of the chest was obtained. Comparison: Prior chest x-ray of 12/29/20. Heart size is within normal limits for portable technique. Tortuous thoracic aorta is noted. Elevated right hemidiaphragm is seen which is felt to be incidental. No definite acute parenchymal change is seen. Bony structures show nothing acute. Impression: 1. Nothing acute is definitely appreciated on portable chest x-ray. Diagnostic code #2
== END 2021-03-17 08:50 | disposition home or self-care (01) ==
LOC: JD.ED 04:00
DX: J44.1 Chronic obstructive pulmonary disease with (acute) exacerbation (principal); R09.02 Hypoxemia; R79.1 Abnormal coagulation profile; I44.0 Atrioventricular block, first degree; R00.1 Bradycardia, unspecified; E78.00 Pure hypercholesterolemia, unspecified; I12.9 Hypertensive chronic kidney disease with stage 1 through stage 4 chronic kidney disease, or unspecified chronic kidney disease; E11.22 Type 2 diabetes mellitus with diabetic chronic kidney disease; N18.9 Chronic kidney disease, unspecified; N40.1 Benign prostatic hyperplasia with lower urinary tract symptoms; R33.8 Other retention of urine; F17.210 Nicotine dependence, cigarettes, uncomplicated; E66.9 Obesity, unspecified; Z68.30 Body mass index [BMI] 30.0-30.9, adult; Z79.899 Other long term (current) drug therapy; Z20.822 Contact with and (suspected) exposure to COVID-19
CPT/HCPCS: 36415; 36600; 71045; 71045-26; 80053; 82803; 83605; 83880; 84484; 85007; 85027; 85379; 87040; 93005; 94640; 99285-25; J7620-GY; U0002

== ENCOUNTER 2021-03-19 12:34 | Emergency (ER) | payer MEDICAID ==
--- NOTE | 2021-03-19 13:09 | EDM.PDOC ---
ED HPI GENERAL MEDICAL PROBLEM - General Chief Complaint: Respiratory Problem Stated Complaint: SOB Time Seen by Provider: 03/19/21 13:09 - History of Present Illness INITIAL COMMENTS - FREE TEXT/NARRATIVE: 76-year-old male presents the emergency room with hypoxia. The patient would like his home O2 changed to a local provider. The patient has a concentrator that he has not used because it came out of [place] associated with hypoxia after surgery. Patient was seen here 2 days ago had a fairly extensive work-up and was advised to use his home concentrator at 2-1/2 to 3 L. However the patient has not done this because this was not the patient's wishes. The patient uses 2 inhalers one steroid he thinks once albuterol plus an albuterol nebulizer at home this cannot be confirmed he did not bring these in he is using his steroid inhaler once daily and using his albuterol intermittently. Patient denies a worsening cough he is not sure if he has been wheezing. - Related Data Allergies Allergy/AdvReac Type Severity Reaction Status Date / Time No Known Allergies Allergy Verified 03/17/21 04:12 Home Meds: Home Meds Tamsulosin [Flomax] 0.4 mg PO DAILY 07/28/19 [History] L. Acidophilus/L. Rhamnosus [Probiotic 15 Billion Cell Cap] 1 cap PO DAILY 12/29/20 [History] Potassium Chloride 20 meq PO DAILY 12/29/20 [History] Pramipexole [Mirapex] 1 mg PO BID 12/29/20 [History] Terazosin [Hytrin] 5 mg PO BID 12/29/20 [History] Zolpidem [Ambien] 5 mg PO BEDTIME PRN 12/29/20 [History] allopurinoL [Zyloprim] 100 mg PO DAILY 12/29/20 [History] amLODIPine [Norvasc] 5 mg PO DAILY 12/29/20 [History] buPROPion [Wellbutrin SR] 150 mg PO BID 12/29/20 [History] Acetaminophen [Pain Reliever] 500 mg PO Q8H PRN 01/07/21 [History] Albuterol Sulfate [Albuterol Sulfate Hfa] 2 puff INH Q4H PRN 01/07/21 [History] Calcium Carb/Vitamin D3/Vit K1 [Calcium + Vit D & K Chew] 1 tab PO DAILY 01/07/21 [History] Cyclobenzaprine [Flexeril] 10 mg PO DAILY PRN 01/07/21 [History] atorvaSTATin [Lipitor] 20 mg PO DAILY 01/07/21 [History] oxyCODONE 5 mg PO QID PRN 01/07/21 [History] predniSONE [Prednisone] 60 mg PO QAM #15 tablet 03/19/21 [Rx] Past Medical History HEENT History: Reports: Impaired Vision (wears glasses) Cardiovascular History: Reports: High Cholesterol, Hypertension Respiratory History: Reports: COPD, Sleep Apnea Gastrointestinal History: Reports: Colon Polyp Genitourinary History: Reports: BPH, Chronic Renal Insuffiency, Retention, Urinary Musculoskeletal History: Reports: Fracture (left wrist) 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 Psychiatric History: Reports: Depression Endocrine/Metabolic History: Reports: Diabetes, Type II (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 gastric bypass 2011), Obesity/BMI 30+ Hematologic History: Reports: None Immunologic History: Reports: None Oncologic (Cancer) History: Reports: None Dermatologic History: Reports: None - Infectious Disease History Infectious Disease History: Reports: Chicken Pox, Measles, Mumps - Past Surgical History HEENT Surgical History: Reports: Eye Surgery (bilateral lower eyelid lift) GI Surgical History: Reports: Appendectomy, Bariatric Procedure (gastric bypass 2011), Colonoscopy (x 2) Neurological Surgical History: Reports: C-Spine (ACDF), Lumbar Spine (laminectomy, L5-L7 fusion) Social & Family History - Family History Family Medical History: No Pertinent Family History - Caffeine Use Caffeine Use: Reports: Energy Drinks Caffeine Use Comment: very rarely - Living Situation & Occupation Living situation: Reports: , Alone Occupation: Retired ED ROS GENERAL - Review of Systems Review Of Systems: See Below Constitutional: Reports: No Symptoms. Denies: Fever, Chills HEENT: Reports: No Symptoms Respiratory: Reports: Shortness of Breath. Denies: Pleuritic Chest Pain Cardiovascular: Reports: No Symptoms. Denies: Chest Pain Endocrine: Reports: No Symptoms GI/Abdominal: Reports: No Symptoms : Reports: Other (The patient has a catheter in place he is having no issues with this) Neurological: Reports: No Symptoms ED EXAM, GENERAL - Physical Exam Exam: See Below Exam Limited By: No Limitations General Appearance: Alert, No Apparent Distress, Other (Sats in the mid 90s on 2 L of oxygen) Head: Atraumatic, Normocephalic Neck: Normal Inspection, Supple, Non-Tender, Full Range of Motion. No: Lymphadenopathy (L), Lymphadenopathy (R) Respiratory/Chest: No Respiratory Distress, Lungs Clear, Other (No crackles or rhonchi noted but he has expiratory wheezes noted throughout.) Cardiovascular: Regular Rate, Rhythm, No Murmur, Other (Bilateral 2+ pitting edema). No: No Edema GI/Abdominal: Normal Bowel Sounds, Soft, Non-Tender Extremities: Pedal Edema (2 Plus pretibial pitting edema) Neurological: Alert, Oriented, Normal Cognition Course - Vital Signs Last Recorded V/S: Last Vital Signs Temp 36.2 C 03/19/21 13:08 Pulse 58 L 03/19/21 13:08 Resp 20 03/19/21 13:08 BP 119/68 03/19/21 13:08 Pulse Ox 91 L 03/19/21 18:00 - Orders/Labs/Meds Orders: Active Orders 24 hr Category Date Time Status RT Aerosol Therapy [RC] ASDIRECTED Care 03/19/21 13:34 Active Labs: Laboratory Tests 03/19/21 Range/Units 15:25 SARS-CoV-2 RNA (MARCEL) Negative (NEGATIVE) Meds: Medications Discontinued Medications Generic Name Dose Route Start Last Admin Trade Name Freq PRN Reason Stop Dose Admin Albuterol/Ipratropium 3 ml 03/19/21 13:34 03/19/21 13:57 Albuterol/Ipratropium 3.0-0.5 Mg/3 Ml Neb Soln NEB 03/19/21 13:35 3 ml ONETIME ONE Administration - Re-Assessments/Exams Free Text/Narrative Re-Assessment/Exam: 03/19/21 14:03 Labs reviewed from 2 days ago was D-dimer slightly elevated which is probably normal for given his age. We will try nebulizer and see if this helps with his wheezing. And we will recheck a chest x-ray. 03/19/21 15:20 Chest x-ray has some changes perhaps consistent with Covid we will go ahead and recheck a Covid albeit it was negative 2 days ago. He had some improvement with the nebulizer. Would like to start him on steroids but the patient would like to hold off on this he thinks he has enough medication at home. 03/19/21 17:52 We are trying to arrange home O2 for this gentleman. 03/19/21 18:35 The patient could get home O2 but discount cost him money. The patient has his concentrator in the back of his car that was not satisfactory for the patient for some reason albeit he has not used it. Again the patient is advised to use this. He does not have the money it will take to get new equipment in [place] at this time. Again discussed the prednisone with the patient and he is now willing to give it a try we will give him 60 mg p.o. prednisone now and he is eating supper at this time and I will see send a prescription to the clinic pharmacy for 60 mg every morning for 5 more days. Departure - Departure Time of Disposition: 18:43 Disposition: Home, Self-Care 01 Clinical Impression: COPD with exacerbation - Discharge Information Referrals: Praneeth Herrmann MD [Primary Care Provider] - Forms: ED Department Discharge Additional Instructions: Return to the emergency room with any questions problems or worsening symptoms. Use your oxygen concentrator that you already have. Use your albuterol nebulizer at least 4 times a day. You have been started on prednisone take 60 mg daily until gone this will be 3- 20 mg tablets it is best taken first thing in the morning. Follow-up in the clinic for recheck by the end of this week. Sepsis Event Note (ED) - Focused Exam Vital Signs: Vital Signs Temp Pulse Resp BP Pulse Ox Pulse Ox 03/19/21 18:00 91 L 03/19/21 15:00 93 L 03/19/21 13:34 93 L 03/19/21 13:08 36.2 C 58 L 20 119/68 80 L - My Orders Last 24 Hours: My Active Orders 03/19/21 13:34 RT Aerosol Therapy [RC] ASDIRECTED - Assessment/Plan Last 24 Hours: My Active Orders 03/19/21 13:34 RT Aerosol Therapy [RC] ASDIRECTED
[2021-03-19] MEDS ORDERED: Albuterol/Ipratropium 3.0-0.5 MG/3 ML Neb Soln NEB ONE (13:34)
--- NOTE | 2021-03-19 14:28 | CR ---
Chest: Portable view of the chest was obtained. Comparison: Prior chest x-ray of 03/17/21. Slight atelectasis is seen within the left lung base. Mild increased density is seen within the left mid lung. Lungs otherwise are clear. Heart size is at the upper limits of normal. Tortuous thoracic aorta is seen. No acute osseous abnormality is appreciated. Impression: 1. Slight left basilar atelectasis with mild increased density within the left midlung. Left midlung could represent an area of COVID pneumonia if patient is positive. Findings otherwise likely represent minimal area of pneumonia. 2. Other findings as noted above which are chronic. Diagnostic code #3
[2021-03-19] MEDS ORDERED: predniSONE 20 MG Tab PO ONE (18:42)
== END 2021-03-19 19:00 | disposition home or self-care (01) ==
LOC: JD.ED 12:34
DX: J44.1 Chronic obstructive pulmonary disease with (acute) exacerbation (principal); E78.00 Pure hypercholesterolemia, unspecified; I12.9 Hypertensive chronic kidney disease with stage 1 through stage 4 chronic kidney disease, or unspecified chronic kidney disease; E11.22 Type 2 diabetes mellitus with diabetic chronic kidney disease; N18.9 Chronic kidney disease, unspecified; Z79.899 Other long term (current) drug therapy; Z20.822 Contact with and (suspected) exposure to COVID-19
CPT/HCPCS: 71045; 87635; 94640; 94762; 99284; J7512; 99283; J7620-GY; U0002

== ENCOUNTER 2021-04-04 16:29 | Inpatient (IN) | payer MEDICARE, MEDICAID ==
[2021-04-04] MEDS ORDERED: Albuterol/Ipratropium 3.0-0.5 MG/3 ML Neb Soln NEB ONE (17:33)
--- NOTE | 2021-04-04 17:55 | EDM.PDOC ---
ED HPI GENERAL MEDICAL PROBLEM - General Chief Complaint: Genitourinary Problem Stated Complaint: SOB W/OXYGEN Time Seen by Provider: 04/04/21 16:41 Source of Information: Reports: Patient, RN Notes Reviewed History Limitations: Reports: No Limitations - History of Present Illness INITIAL COMMENTS - FREE TEXT/NARRATIVE: Patient is a 76-year-old male presenting to the emergency department with request to having Reinoso catheter replaced. Reports removed his catheter at home because it was leaking. He presents with no catheter in place. He has had a chronic indwelling Reinoso since December and is scheduled to follow-up with his urologist next week. In addition, patient complains of shortness of breath. He does have chronic shortness of breath with a diagnosis of COPD and is on home oxygen which she reports is at 2 to 3 L. He saw his primary care provider, Dr. Shepherd, approximately 1 week ago. He was prescribed "medication review take to the first day and then 1 for the next 4 days "which I believe to be azithromycin. Reports that he did not start taking until yesterday because he did not pick it up from the pharmacy. He is unsure what he was treating if it was pneumonia or COPD exacerbation. He does report that he has albuterol nebulizers at home. Last time he used it was last evening. He states it did help his symptoms. Patient also states that if he would use it as he supposed to it would probably help more. He denies any significant chest pain. He has had no fever or chills. Neck Pain Score (Numeric/FACES): 5 - Related Data Allergies Allergy/AdvReac Type Severity Reaction Status Date / Time No Known Allergies Allergy Verified 04/04/21 16:41 Home Meds: Home Meds Tamsulosin [Flomax] 0.4 mg PO DAILY 07/28/19 [History] buPROPion [Wellbutrin SR] 150 mg PO BID 12/29/20 [History] oxyCODONE 5 mg PO QID PRN 01/07/21 [History] Azithromycin [Zithromax] 250 mg PO DAILY 04/04/21 [History] Finasteride [Proscar] 5 mg PO DAILY 04/04/21 [History] Acetaminophen 500 mg PO Q8H PRN 04/05/21 [History] Albuterol Sulfate [Albuterol Sulfate HFA] 2 puff INH Q4H PRN 04/05/21 [History] Calcium Carbonate/Vitamin D3 [Calcium 600-Vit D3 500 Softgel] 1 tab PO DAILY 04/05/21 [History] Docusate Sodium 100 mg PO DAILY 04/05/21 [History] Fluticasone/Vilanterol [Breo Ellipta 100-25 MCG Inhalation Kit] 1 puff INH DAILY 04/05/21 [History] Furosemide [Lasix] 40 mg PO DAILY 04/05/21 [History] Lactobacillus Acidophilus [Probiotic Acidophilus] 1 cap PO DAILY 04/05/21 [History] Metoprolol Tartrate 25 mg PO BID 04/05/21 [History] Phytonadione [Vitamin K] 100 mcg PO DAILY 04/05/21 [History] Potassium Chloride [Klor-Con 10] 10 meq PO BID 04/05/21 [History] Pramipexole Di-HCl [Mirapex] 1 mg PO BID 04/05/21 [History] Zolpidem [Ambien] 5 mg PO BEDTIME PRN 04/05/21 [History] atorvaSTATin Calcium [Lipitor] 20 mg PO DAILY 04/05/21 [History] rOPINIRole [Requip] 0.5 mg PO BID 04/05/21 [History] Past Medical History HEENT History: Reports: Impaired Vision Cardiovascular History: Reports: Hypertension Respiratory History: Reports: COPD, Sleep Apnea Gastrointestinal History: Reports: Colon Polyp Genitourinary History: Reports: BPH, Chronic Renal Insuffiency, Retention, Urinary Musculoskeletal History: Reports: Fracture Neurological History: Reports: Head Trauma Other Neuro History: traumatic brain bleed Psychiatric History: Reports: Depression Endocrine/Metabolic History: Reports: Diabetes, Type II, Obesity/BMI 30+ Hematologic History: Reports: Anemia Immunologic History: Reports: None Oncologic (Cancer) History: Reports: None Dermatologic History: Reports: None - Infectious Disease History Infectious Disease History: Reports: Chicken Pox, Measles, Mumps - Past Surgical History HEENT Surgical History: Reports: Eye Surgery Other HEENT Surgeries/Procedures: tightened up bottom lids, wears glasses Respiratory Surgical History: Reports: None GI Surgical History: Reports: Appendectomy, Bariatric Procedure, Colonoscopy Neurological Surgical History: Reports: C-Spine, Lumbar Spine Musculoskeletal Surgical History: Reports: Other (See Below) Other Musculoskeletal Surgeries/Procedures:: neck and back surgery Social & Family History - Family History Family Medical History: No Pertinent Family History - Tobacco Use Tobacco Use Status *Q: Current Every Day Tobacco User Years of Tobacco use: 50 Packs/Tins Daily: 0.2 - Caffeine Use Caffeine Use: Reports: Energy Drinks Caffeine Use Comment: very rarely - Recreational Drug Use Recreational Drug Use: Yes Recreational Drug Type: Reports: Marijuana/Hashish - Living Situation & Occupation Living situation: Reports: , Alone Occupation: Retired ED ROS GENERAL - Review of Systems Review Of Systems: See Below Constitutional: Reports: Weakness, Fatigue. Denies: Fever, Chills HEENT: Reports: No Symptoms Respiratory: Reports: Shortness of Breath, Cough Cardiovascular: Reports: Dyspnea on Exertion. Denies: Chest Pain, Lightheadedness Endocrine: Reports: No Symptoms GI/Abdominal: Reports: No Symptoms : Reports: Other (removed chronic reinoso catheter d/t leaking) Musculoskeletal: Reports: No Symptoms Skin: Reports: No Symptoms Neurological: Denies: Confusion, Dizziness Psychiatric: Reports: No Symptoms Hematologic/Lymphatic: Reports: No Symptoms Immunologic: Reports: No Symptoms ED EXAM, GENERAL - Physical Exam Exam: See Below Exam Limited By: No Limitations General Appearance: Alert, WD/WN, No Apparent Distress, Other (falls asleep for brief periods during conversation) Respiratory/Chest: No Respiratory Distress, Lungs Clear, No Accessory Muscle Use, Chest Non-Tender, Decreased Breath Sounds Cardiovascular: Normal Peripheral Pulses, Regular Rate, Rhythm, No Gallop, No JVD, No Murmur, No Rub, Other (2+ pitting edema BLE) GI/Abdominal: Normal Bowel Sounds, Soft, Non-Tender, No Organomegaly, No Distention, No Abnormal Bruit, No Mass Neurological: Alert, Oriented, CN II-XII Intact, Normal Cognition, Normal Gait, Normal Reflexes, No Motor/Sensory Deficits Psychiatric: Normal Affect, Normal Mood Skin Exam: Warm, Dry, Intact, Normal Color, No Rash #1 Interpretation EKG Date: 04/04/21 Time: 17:45 Rhythm: NSR Rate (Beats/Min): 86 [place]: Normal P-Wave: Present QRS: RBBB ST-T: Normal QT: Normal Course - Vital Signs Last Recorded V/S: Last Vital Signs Temp 98.1 F 04/06/21 15:04 Pulse 68 04/06/21 15:04 Resp 22 H 04/06/21 15:04 BP 130/71 04/06/21 15:04 Pulse Ox 92 L 04/06/21 20:10 - Orders/Labs/Meds Orders: Medication Orders Bupropion HCl (Bupropion 150 Mg Tab.Sr) 150 mg PO BID [facility] Last Admin: 04/06/21 08:31 Dose: 150 mg Documented by: Admin: 04/05/21 21:15 Dose: 150 mg Documented by: Admin: 04/05/21 09:59 Dose: 150 mg Documented by: JUSTYNA Enoxaparin Sodium (Enoxaparin 30 Mg/0.3 Ml Syringe) 30 mg SUBCUT Q24H [facility] Last Admin: 04/06/21 14:55 Dose: 30 mg Documented by: Admin: 04/05/21 15:21 Dose: 30 mg Documented by: JUSTYNA Finasteride (Finasteride 5 Mg Tab) 5 mg PO DAILY [facility] Last Admin: 04/06/21 08:30 Dose: 5 mg Documented by: Admin: 04/05/21 09:59 Dose: 5 mg Documented by: JUSTYNA Furosemide (Furosemide 40 Mg Tab) 40 mg PO DAILY [facility] Last Admin: 04/06/21 08:29 Dose: 40 mg Documented by: IVELISSE Azithromycin 500 mg/ Sodium (Chloride) 250 mls @ 250 mls/hr IV Q24H [facility] Last Admin: 04/06/21 10:10 Dose: 250 mls/hr Documented by: Infusion: 04/05/21 12:32 Dose: 250 mls/hr Documented by: Admin: 04/05/21 11:32 Dose: 250 mls/hr Documented by: JUSTYNA Methylprednisolone Sodium Succinate (Methylprednisolone Sodium Succinate 125 Mg/2 Ml Sdv) 125 mg IV Q8H [facility] Last Admin: 04/06/21 18:42 Dose: 125 mg Documented by: Admin: 04/06/21 10:10 Dose: 125 mg Documented by: Admin: 04/06/21 02:32 Dose: 125 mg Documented by: Admin: 04/05/21 19:08 Dose: 125 mg Documented by: Admin: 04/05/21 11:32 Dose: 125 mg Documented by: JUSTYNA Metoprolol Tartrate (Metoprolol Tartrate 25 Mg Tab) 25 mg PO BID [facility] Last Admin: 04/06/21 08:32 Dose: 25 mg Documented by: Admin: 04/05/21 21:16 Dose: 25 mg Documented by: SHANTE Mometasone Furoate/Formoterol Fumar (Formoterol/Mometasone 100-5 Mcg 8.8 Gm Inhaler) 0 puff IH BID [facility] Last Admin: 04/06/21 20:09 Dose: 2 puff Documented by: Admin: 04/06/21 08:41 Dose: 2 puff Documented by: GLENDY Potassium Chloride (Potassium Chloride 10 Meq Tab.Er) 10 meq PO BID [facility] Last Admin: 04/06/21 08:31 Dose: 10 meq Documented by: Admin: 04/05/21 21:15 Dose: 10 meq Documented by: SHANTE Pramipexole Dihydrochloride (Pramipexole 0.5 Mg Tab) 1 mg PO BID [facility] Admin: 04/06/21 08:28 Dose: 1 mg Documented by: Admin: 04/05/21 21:16 Dose: 1 mg Documented by: SHANTE Ropinirole HCl (Ropinirole 0.25 Mg Tab) 0.5 mg PO BID [facility] Last Admin: 04/06/21 08:31 Dose: 0.5 mg Documented by: Admin: 04/05/21 21:16 Dose: 0.5 mg Documented by: SHANTE Tamsulosin HCl (Tamsulosin 0.4 Mg Cap.Er) 0.4 mg PO DAILY [facility] Last Admin: 04/06/21 08:29 Dose: 0.4 mg Documented by: Admin: 04/05/21 09:59 Dose: 0.4 mg Documented by: JUSTYNA Labs: Laboratory Tests 04/04/21 04/04/21 04/04/21 Range/Units 17:50 17:50 18:23 WBC 8.21 (4.23-9.07) K/mm3 RBC 3.89 L (4.63-6.08) M/mm3 Hgb 10.5 L (13.7-17.5) gm/dl Hct 38.7 L (40.1-51.0) % MCV 99.5 H (79.0-92.2) fl MCH 27.0 (25.7-32.2) pg MCHC 27.1 L (32.2-35.5) g/dl RDW Std Deviation 62.1 H (35.1-43.9) fL Plt Count 156 L D (163-337) K/mm3 MPV 11.5 (9.4-12.3) fl Neut % (Auto) 78.9 H (34.0-67.9) % Lymph % (Auto) 8.9 L (21.8-53.1) % [place] % (Auto) 9.9 (5.3-12.2) % Eos % (Auto) 2.1 (0.8-7.0) Baso % (Auto) 0.2 (0.1-1.2) % Neut # (Auto) 6.48 H (1.78-5.38) K/mm3 Lymph # (Auto) 0.73 L (1.32-3.57) K/mm3 [place] # (Auto) 0.81 (0.30-0.82) K/mm3 Eos # (Auto) 0.17 (0.04-0.54) K/mm3 Baso # (Auto) 0.02 (0.01-0.08) K/mm3 Manual Slide Review Abnormal smear Puncture Site Rt radial ABG pH 7.34 L (7.35-7.45) ABG pCO2 79.4 H* (35.0-45.0) mmHg ABG pO2 52.0 L (80.0-100.0) mmHg ABG HCO3 41.4 H (22.0-26.0) meq/L ABG O2 Saturation 76.1 L (96.0-97.0) % ABG Base Excess 13.1 H (-2-2.0) Antonio Test Positive O2 Delivery Device Nasal cannula Oxygen Flow Rate 3.0 Sodium 147 H (136-145) mEq/L Potassium 3.9 (3.5-5.1) mEq/L Chloride 107 (98-107) mEq/L Carbon Dioxide 41 H* (21-32) mEq/L Anion Gap 2.9 L (5-15) BUN 23 H (7-18) mg/dL Creatinine 1.5 H (0.7-1.3) mg/dL Est Cr Clr Drug Dosing 39.90 mL/min Estimated GFR (MDRD) 45 (>60) mL/min BUN/Creatinine Ratio 15.3 (14-18) Glucose 167 H (70-99) mg/dL Calcium 8.7 (8.5-10.1) mg/dL Total Bilirubin 0.5 (0.2-1.0) mg/dL AST 29 (15-37) U/L ALT 52 (16-63) U/L Alkaline Phosphatase 51 (46-116) U/L Troponin I 0.020 (0.00-0.056) ng/mL Total Protein 5.9 L (6.4-8.2) g/dl Albumin 3.1 L (3.4-5.0) g/dl Globulin 2.8 gm/dL Albumin/Globulin Ratio 1.1 (1-2) SARS-CoV-2 RNA (MARCEL) (NEGATIVE) 04/04/21 Range/Units 18:46 WBC (4.23-9.07) K/mm3 RBC (4.63-6.08) M/mm3 Hgb (13.7-17.5) gm/dl Hct (40.1-51.0) % MCV (79.0-92.2) fl MCH (25.7-32.2) pg MCHC (32.2-35.5) g/dl RDW Std Deviation (35.1-43.9) fL Plt Count (163-337) K/mm3 MPV (9.4-12.3) fl Neut % (Auto) (34.0-67.9) % Lymph % (Auto) (21.8-53.1) % [place] % (Auto) (5.3-12.2) % Eos % (Auto) (0.8-7.0) Baso % (Auto) (0.1-1.2) % Neut # (Auto) (1.78-5.38) K/mm3 Lymph # (Auto) (1.32-3.57) K/mm3 [place] # (Auto) (0.30-0.82) K/mm3 Eos # (Auto) (0.04-0.54) K/mm3 Baso # (Auto) (0.01-0.08) K/mm3 Manual Slide Review Puncture Site ABG pH (7.35-7.45) ABG pCO2 (35.0-45.0) mmHg ABG pO2 (80.0-100.0) mmHg ABG HCO3 (22.0-26.0) meq/L ABG O2 Saturation (96.0-97.0) % ABG Base Excess (-2-2.0) Antonio Test O2 Delivery Device Oxygen Flow Rate Sodium (136-145) mEq/L Potassium (3.5-5.1) mEq/L Chloride (98-107) mEq/L Carbon Dioxide (21-32) mEq/L Anion Gap (5-15) BUN (7-18) mg/dL Creatinine (0.7-1.3) mg/dL Est Cr Clr Drug Dosing mL/min Estimated GFR (MDRD) (>60) mL/min BUN/Creatinine Ratio (14-18) Glucose (70-99) mg/dL Calcium (8.5-10.1) mg/dL Total Bilirubin (0.2-1.0) mg/dL AST (15-37) U/L ALT (16-63) U/L Alkaline Phosphatase (46-116) U/L Troponin I (0.00-0.056) ng/mL Total Protein (6.4-8.2) g/dl Albumin (3.4-5.0) g/dl Globulin gm/dL Albumin/Globulin Ratio (1-2) SARS-CoV-2 RNA (MARCEL) Negative (NEGATIVE) Meds: Medications Generic Name Dose Route Start Last Admin Trade Name Freq PRN Reason Stop Dose Admin Bupropion HCl 150 mg 04/05/21 09:00 04/06/21 08:31 Bupropion 150 Mg Tab.Sr PO 150 mg BID [facility] Administration Enoxaparin Sodium 30 mg 04/05/21 14:00 04/06/21 14:55 Enoxaparin 30 Mg/0.3 Ml Syringe SUBCUT 30 mg Q24H [facility] Administration Finasteride 5 mg 04/05/21 09:00 04/06/21 08:30 Finasteride 5 Mg Tab PO 5 mg DAILY [facility] Administration Furosemide 40 mg 04/06/21 09:00 04/06/21 08:29 Furosemide 40 Mg Tab PO 40 mg DAILY [facility] Administration Azithromycin 500 mg/ Sodium 250 mls @ 250 mls/hr 04/05/21 10:00 04/06/21 10:10 Chloride IV 250 mls/hr Q24H [facility] Administration Methylprednisolone Sodium Succinate 125 mg 04/05/21 11:00 04/06/21 18:42 Methylprednisolone Sodium Succinate 125 Mg/2 Ml Sdv IV 125 mg Q8H [facility] Administration Metoprolol Tartrate 25 mg 04/05/21 21:00 04/06/21 08:32 Metoprolol Tartrate 25 Mg Tab PO 25 mg BID [facility] Administration Mometasone Furoate/Formoterol Fumar 0 puff 04/06/21 09:00 04/06/21 20:09 Formoterol/Mometasone 100-5 Mcg 8.8 Gm Inhaler IH 2 puff BID [facility] Administration Potassium Chloride 10 meq 04/05/21 21:00 04/06/21 08:31 Potassium Chloride 10 Meq Tab.Er PO 10 meq BID [facility] Administration Pramipexole Dihydrochloride 1 mg 04/05/21 21:00 04/06/21 08:28 Pramipexole 0.5 Mg Tab PO 1 mg BID [facility] Administration Ropinirole HCl 0.5 mg 04/05/21 21:00 04/06/21 08:31 Ropinirole 0.25 Mg Tab PO 0.5 mg BID [facility] Administration Tamsulosin HCl 0.4 mg 04/05/21 09:00 04/06/21 08:29 Tamsulosin 0.4 Mg Cap.Er PO 0.4 mg DAILY [facility] Administration Discontinued Medications Generic Name Dose Route Start Last Admin Trade Name Freq PRN Reason Stop Dose Admin Albuterol/Ipratropium 3 ml 04/04/21 17:33 04/04/21 17:42 Albuterol/Ipratropium 3.0-0.5 Mg/3 Ml Neb Soln NEB 04/04/21 17:34 3 ml ONETIME ONE Administration Methylprednisolone Sodium Succinate 125 mg 04/04/21 18:51 04/04/21 19:15 Methylprednisolone Sodium Succinate 125 Mg/2 Ml Sdv IVPUSH 04/04/21 18:52 125 mg ONETIME ONE Administration - Re-Assessments/Exams Free Text/Narrative Re-Assessment/Exam: Patient is a 76-year-old male presenting to the emergency department with complaints of increasing shortness of breath. He has a history of COPD and is on 2 to 3 L of oxygen chronically. Reports he saw his primary care provider 1 week ago and he was started on azithromycin, however he is unsure if this was for COPD exacerbation or pneumonia. He did not start taking it until yesterday as he did not sheepskin pickler the prescription. During conversation, patient appears to fall asleep and pause and then resume conversations. He reports that he has been sleeping more than normal. I have ordered CBC, CMP, troponin, EKG, chest x-ray, DuoNeb breathing treatment. Patient also removed his chronic indwelling Reinoso catheter earlier today because it was leaking. Nursing staff will replace this. 04/04/21 18:25 Chest x-ray reviewed by myself and Dr. Garcia shows no obvious infiltrates. Hematology significant for hemoglobin low at 10.5, CO2 elevated at 41, anion gap 2.9, BUN 23, creatinine 1.5. Troponin is normal. I have ordered ABG to be completed given his elevated CO2 level. 04/04/21 18:48 ABG shows pH 7.34, CO2 79.4, PO2 52, bicarb 41.4, oxygen saturation 76.1%. This was taken on 3 L of oxygen by nasal cannula. Patient is in a partially compensated respiratory acidosis. I have ordered a BiPAP to be started as well as Covid testing. Patient will require admission to the hospital for COPD exacerbation with hypercapnia. 04/04/21 18:52 Case was discussed with hospitalist, Dr. Blakely. He is excepted the patient for admission for COPD exacerbation with hypercapnia. I have ordered Solu-Medrol 125 mg IV to be given now. Departure - Departure Time of Disposition: 18:52 Disposition: Admitted As Inpatient 65 Condition: Good Clinical Impression: COPD with exacerbation, Hypoxia, Hypercapnia with mixed acid-base disorder - Discharge Information
[2021-04-04] MEDS ORDERED: methylPREDNISolone Sodium Succinate 125 MG/2 ML SDV IVPUSH ONE (18:51)
--- NOTE | 2021-04-05 06:56 | PCM.HP.2 ---
H&P History of Present Illness - General Date of Service: 04/05/21 Admit Problem/Dx: Admission Diagnosis/Problem Admission Diagnosis/Problem Exacerbation of chronic obstructive pulmonary Source of Information: Patient History Limitations: Reports: No Limitations - History of Present Illness Initial Comments - Free Text/Narative: The patient is a 76-year-old gentleman who had presented to the emergency room out of concern for his leaking Ramos catheter. The patient does have chronic indwelling catheter due to problems associated with his prior back surgery. The patient does have chronic shortness of breath and was diagnosed with COPD so metime ago. The patient still uses tobacco. The patient also had laboratory testings that were completed in the emergency department and he was found to be severely hypercapnic. The patient says that he had spoken with his primary care doctor and was placed on an antibiotic likely to be a azithromycin. The patient has denied any chest pain, cough or wheezing. Onset of Symptoms: Reports: Gradual Duration of Symptoms: Reports: Week(s): Location: Reports: Generalized Severity: Mild Improves with: Reports: Rest, Other (Oxygen support) Worsens with: Reports: Breathing, Movement Context: Denies: Sick Contact Associated Symptoms: Reports: Cough, Shortness of Breath Neck Pain Score (Numeric/FACES): 5 - Related Data Allergies/Adverse Reactions: Allergies Allergy/AdvReac Type Severity Reaction Status Date / Time No Known Allergies Allergy Verified 04/04/21 16:41 Home Medications: Home Meds Tamsulosin [Flomax] 0.4 mg PO DAILY 07/28/19 [History] buPROPion [Wellbutrin SR] 150 mg PO BID 12/29/20 [History] oxyCODONE 5 mg PO QID PRN 01/07/21 [History] Azithromycin [Zithromax] 250 mg PO DAILY 04/04/21 [History] Finasteride [Proscar] 5 mg PO DAILY 04/04/21 [History] Past Medical History HEENT History: Reports: Impaired Vision Cardiovascular History: Reports: Hypertension Respiratory History: Reports: COPD, Sleep Apnea Gastrointestinal History: Reports: Colon Polyp Genitourinary History: Reports: BPH, Chronic Renal Insuffiency, Retention, U rinary Musculoskeletal History: Reports: Fracture Neurological History: Reports: Head Trauma Other Neuro History: traumatic brain bleed Psychiatric History: Reports: Depression Endocrine/Metabolic History: Reports: Diabetes, Type II, Obesity/BMI 30+ Hematologic History: Reports: Anemia Immunologic History: Reports: None Oncologic (Cancer) History: Reports: None Dermatologic History: Reports: None - Infectious Disease History Infectious Disease History: Reports: Chicken Pox, Measles, Mumps - Past Surgical History HEENT Surgical History: Reports: Eye Surgery Other HEENT Surgeries/Procedures: tightened up bottom lids, wears glasses Cardiovascular Surgical History: Reports: None Respiratory Surgical History: Reports: None GI Surgical History: Reports: Appendectomy, Bariatric Procedure, Colonoscopy Neurological Surgical History: Reports: C-Spine, Lumbar Spine Musculoskeletal Surgical History: Reports: Other (See Below) Other Musculoskeletal Surgeries/Procedures:: neck and back surgery Social & Family History - Family History Family Medical History: No Pertinent Family History - Tobacco Use Tobacco Use Status *Q: Current Every Day Tobacco User Years of Tobacco use: 50 Packs/Tins Daily: 1 Used Tobacco, but Quit: No Second Hand Smoke Exposure: Yes - Caffeine Use Caffeine Use: Reports: Energy Drinks Other Caffeine Use: couple cans of monster energy drinks a day Caffeine Use Comment: very rarely - Recreational Drug Use Recreational Drug Use: Yes Drug Use in Last 12 Months: Yes Recreational Drug Type: Reports: Marijuana/Hashish Other Recreational Drug Type: states he uses 4-5 times a year Recreational Drug Use Frequency: Rarely - Living Situation & Occupation Living situation: Reports: , Alone Occupation: Retired H&P Review of Systems - Review of Systems: Review Of Systems: See Below General: Reports: Weakness HEENT: Reports: No Symptoms Pulmonary: Reports: Shortness of Breath, Cough Cardiovascular: Reports: No Symptoms Gastrointestinal: Reports: No Symptoms Genitourinary: Reports: Retention Musculoskeletal: Reports: No Symptoms Skin: Reports: No Symptoms Psychiatric: Reports: No Symptoms Neurological: Reports: No Symptoms Hematologic/Lymphatic: Reports: No Symptoms Immunologic: Reports: No Symptoms Exam - Exam Exam: See Below - Vital Signs Vital Signs: Last Vital Signs Temp 36.8 C 04/05/21 04:54 Pulse 73 04/05/21 04:54 Resp 15 04/05/21 04:54 BP 132/70 04/05/21 04:54 Pulse Ox 94 L 04/05/21 04:54 Weight: 96.207 kg - Exam Quality Assessment: Supplemental Oxygen, DVT Prophylaxis General: Alert, Oriented, Cooperative HEENT: Conjunctiva Clear, EACs Clear, EOMI, PERRLA. No: Mucosa Moist & [place] (Dry) Neck: Supple, Trachea Midline Lungs: Decreased Breath Sounds, Crackles (Widely scattered), Other (Pursed lip breathing) Cardiovascular: Regular Rate, Regular Rhythm GI/Abdominal Exam: Normal Bowel Sounds, Soft, No Distention (Male) Exam: Deferred Rectal (Males) Exam: Deferred Back Exam: Normal Inspection. No: Full Range of Motion (Age-appropriate) Extremities: Normal Inspection, No Pedal Edema Skin: Warm, Dry, Intact Neurological: Normal Speech, Normal Tone Psychiatric: Alert, Normal Affect, Normal Mood - Patient Data Lab Results Last 24 hrs: Laboratory Results - last 24 hr 04/04/21 04/04/21 04/04/21 Range/Units 17:50 17:50 18:23 WBC 8.21 (4.23-9.07) K/mm3 RBC 3.89 L (4.63-6.08) M/mm3 Hgb 10.5 L (13.7-17.5) gm/dl Hct 38.7 L (40.1-51.0) % MCV 99.5 H (79.0-92.2) fl MCH 27.0 (25.7-32.2) pg MCHC 27.1 L (32.2-35.5) g/dl RDW Std Deviation 62.1 H (35.1-43.9) fL Plt Count 156 L D (163-337) K/mm3 MPV 11.5 (9.4-12.3) fl Neut % (Auto) 78.9 H (34.0-67.9) % Lymph % (Auto) 8.9 L (21.8-53.1) % [place] % (Auto) 9.9 (5.3-12.2) % Eos % (Auto) 2.1 (0.8-7.0) Baso % (Auto) 0.2 (0.1-1.2) % Neut # (Auto) 6.48 H (1.78-5.38) K/mm3 Lymph # (Auto) 0.73 L (1.32-3.57) K/mm3 [place] # (Auto) 0.81 (0.30-0.82) K/mm3 Eos # (Auto) 0.17 (0.04-0.54) K/mm3 Baso # (Auto) 0.02 (0.01-0.08) K/mm3 Manual Slide Review Abnormal smear Puncture Site Rt radial ABG pH 7.34 L (7.35-7.45) ABG pCO2 79.4 H* (35.0-45.0) mmHg ABG pO2 52.0 L (80.0-100.0) mmHg ABG HCO3 41.4 H (22.0-26.0) meq/L ABG O2 Saturation 76.1 L (96.0-97.0) % ABG Base Excess 13.1 H (-2-2.0) Antonio Test Positive O2 Delivery Device Nasal cannula Oxygen Flow Rate 3.0 Sodium 147 H (136-145) mEq/L Potassium 3.9 (3.5-5.1) mEq/L Chloride 107 (98-107) mEq/L Carbon Dioxide 41 H* (21-32) mEq/L Anion Gap 2.9 L (5-15) BUN 23 H (7-18) mg/dL Creatinine 1.5 H (0.7-1.3) mg/dL Est Cr Clr Drug Dosing 39.90 mL/min Estimated GFR (MDRD) 45 (>60) mL/min BUN/Creatinine Ratio 15.3 (14-18) Glucose 167 H (70-99) mg/dL Calcium 8.7 (8.5-10.1) mg/dL Total Bilirubin 0.5 (0.2-1.0) mg/dL AST 29 (15-37) U/L ALT 52 (16-63) U/L Alkaline Phosphatase 51 (46-116) U/L Troponin I 0.020 (0.00-0.056) ng/mL Total Protein 5.9 L (6.4-8.2) g/dl Albumin 3.1 L (3.4-5.0) g/dl Globulin 2.8 gm/dL Albumin/Globulin Ratio 1.1 (1-2) SARS-CoV-2 RNA (MARCEL) (NEGATIVE) 04/04/21 Range/Units 18:46 WBC (4.23-9.07) K/mm3 RBC (4.63-6.08) M/mm3 Hgb (13.7-17.5) gm/dl Hct (40.1-51.0) % MCV (79.0-92.2) fl MCH (25.7-32.2) pg MCHC (32.2-35.5) g/dl RDW Std Deviation (35.1-43.9) fL Plt Count (163-337) K/mm3 MPV (9.4-12.3) fl Neut % (Auto) (34.0-67.9) % Lymph % (Auto) (21.8-53.1) % [place] % (Auto) (5.3-12.2) % Eos % (Auto) (0.8-7.0) Baso % (Auto) (0.1-1.2) % Neut # (Auto) (1.78-5.38) K/mm3 Lymph # (Auto) (1.32-3.57) K/mm3 [place] # (Auto) (0.30-0.82) K/mm3 Eos # (Auto) (0.04-0.54) K/mm3 Baso # (Auto) (0.01-0.08) K/mm3 Manual Slide Review Puncture Site ABG pH (7.35-7.45) ABG pCO2 (35.0-45.0) mmHg ABG pO2 (80.0-100.0) mmHg ABG HCO3 (22.0-26.0) meq/L ABG O2 Saturation (96.0-97.0) % ABG Base Excess (-2-2.0) Antonio Test O2 Delivery Device Oxygen Flow Rate Sodium (136-145) mEq/L Potassium (3.5-5.1) mEq/L Chloride (98-107) mEq/L Carbon Dioxide (21-32) mEq/L Anion Gap (5-15) BUN (7-18) mg/dL Creatinine (0.7-1.3) mg/dL Est Cr Clr Drug Dosing mL/min Estimated GFR (MDRD) (>60) mL/min BUN/Creatinine Ratio (14-18) Glucose (70-99) mg/dL Calcium (8.5-10.1) mg/dL Total Bilirubin (0.2-1.0) mg/dL AST (15-37) U/L ALT (16-63) U/L Alkaline Phosphatase (46-116) U/L Troponin I (0.00-0.056) ng/mL Total Protein (6.4-8.2) g/dl Albumin (3.4-5.0) g/dl Globulin gm/dL Albumin/Globulin Ratio (1-2) SARS-CoV-2 RNA (MARCEL) Negative (NEGATIVE) Result Diagrams: 04/05/21 09:42 04/05/21 09:42 Sepsis Event Note - Evaluation Sepsis Screening Result: No Definite Risk - Focused Exam Vital Signs: Vital Signs Temp Pulse Pulse Resp BP Pulse Ox Pulse Ox 04/05/21 04:54 36.8 C 73 15 132/70 94 L 04/04/21 20:15 36.6 C 98 22 H 124/68 97 04/04/21 20:00 68 20 92 L 04/04/21 19:00 92 L - Problem List (1) Acute and chronic respiratory failure ([id number]) SNOMED Code(s): 19247293 ICD Code: J96.20 - ACUTE AND CHR RESP FAILURE, UNSP W HYPOXIA OR HYPERCAPNIA Status: Acute Priority: High Current Visit: Yes Qualifiers: Respiratory failure complication: hypoxia and hypercapnia Qualified Code(s): J96.21 - Acute and chronic respiratory failure with hypoxia; J96.22 - Acute and chronic respiratory failure with hypercapnia (2) Urinary retention SNOMED Code(s): 500759491 ICD Code: R33.9 - RETENTION OF URINE, UNSPECIFIED Status: Chronic Priority: High Current Visit: Yes (3) COPD with exacerbation SNOMED Code(s): 652506844 ICD Code: J44.1 - CHRONIC OBSTRUCTIVE PULMONARY DISEASE W (ACUTE) EXA CERBATION Status: Chronic Priority: High Current Visit: Yes (4) Hypercapnia with mixed acid-base disorder SNOMED Code(s): 03398273 ICD Code: E87.4 - MIXED DISORDER OF ACID-BASE BALANCE Status: Chronic Priority: High Current Visit: Yes Problem List Initiated/Reviewed/Updated: Yes Orders Last 24hrs: Active Orders 24 hr Category Date Time Status Patient Status [ADT] Routine ADT 04/04/21 19:44 Active Activity as Tolerated [RC] .Routine Care 04/04/21 22:44 Active Insert Ramos Catheter [Insert Urinary Catheter] [OM.PC] Care 04/04/21 19:00 Ordered Stat Oxygen Therapy [RC] ASDIRECTED Care 04/04/21 18:53 Active RT Aerosol Therapy [RC] ASDIRECTED Care 04/04/21 17:33 Active RT BiPAP/CPAP [RC] ASDIRECTED Care 04/04/21 18:52 Active Urinary Catheter Assessment [RC] 04,10,16,22 Care 04/04/21 19:00 Active Regular Diet [DIET] Diet 04/05/21 Breakfast Active Code Status [Resuscitation Status] Routine Resus Stat 04/04/21 22:41 Ordered Assessment/Plan Comment:: The patient is a 76-year-old gentleman who has been admitted to acute hospitalization secondary to hypercapnia. This also represents acute on chronic respiratory failure. He will be treated for exacerbation of COPD as he has been previously on p.o. antibiotics. The patient is given a azithromycin IV 500 mg daily. He is also been placed on Solu-Medrol 80 mg IV every 8 hours. Repeat laboratory studies have been ordered. I have also ordered the patient to have oxygen support to keep his oxygen saturations around 92%. I suspect that the patient is a chronic CO2 retainer and his bicarb is currently normal for him. Patient will have regular diet as tolerated. The patient will also have DVT prophylaxis with the use of Lovenox 30 mg subcutaneous daily. The patient should be appropriate for discharge in 1 to 2 days. - Mortality Measure Prognosis:: Good
--- NOTE | 2021-04-05 09:24 | CR ---
Chest: Portable view of the chest was obtained. Comparison: Prior chest x-ray 03/19/21 and 03/17/21. Slight atelectasis is seen within the right lung base. Minimal scarring or atelectasis is seen within the left lung base. Heart size has a slight left ventricular configuration. Tortuous thoracic aorta is seen. Mild increased lung markings are seen within the left perihilar region which appear stable from recent chest x-ray. No definite acute parenchymal change is seen. Bone window settings were reviewed which show nothing acute. Impression: 1. Mild right basilar atelectasis and slight basilar atelectasis or scarring on the left side. 2. Other findings as noted above. Nothing acute is definitely appreciated from prior study. Diagnostic code #3
[2021-04-05] MEDS: buPROPion 150 MG Tab.SR PO SCH ×2 (09:59→21:15)
[2021-04-05] MEDS: Finasteride 5 MG Tab PO SCH (09:59)
[2021-04-05] MEDS: Tamsulosin 0.4 MG Cap.ER PO SCH (09:59)
[2021-04-05] MEDS ORDERED: methylPREDNISolone Sod Succ 125 MG in Sodium Chloride 0.9% 250 ML IV SCH (10:30)
[2021-04-05] MEDS: Azithromycin 500 MG in Sodium Chloride 0.9% 250 ML IV SCH (11:32)
[2021-04-05] MEDS: methylPREDNISolone Sodium Succinate 125 MG/2 ML SDV IV SCH ×2 (11:32→19:08)
[2021-04-05] MEDS: Enoxaparin 30 MG/0.3 ML Syringe SUBCUT SCH (15:21)
[2021-04-05] MEDS: Potassium Chloride 10 MEQ Tab.ER PO SCH (21:15)
[2021-04-05] MEDS: Pramipexole 0.5 MG Tab PO SCH (21:16)
[2021-04-05] MEDS: rOPINIRole 0.25 MG Tab PO SCH (21:16)
[2021-04-05] MEDS: Metoprolol Tartrate 25 MG Tab PO SCH (21:16)
[2021-04-06] MEDS: methylPREDNISolone Sodium Succinate 125 MG/2 ML SDV IV SCH ×3 (02:32→18:42)
[2021-04-06] MEDS: Pramipexole 0.5 MG Tab PO SCH ×2 (08:28→20:21)
[2021-04-06] MEDS: Tamsulosin 0.4 MG Cap.ER PO SCH (08:29)
[2021-04-06] MEDS: Furosemide 40 MG Tab PO SCH (08:29)
[2021-04-06] MEDS: Finasteride 5 MG Tab PO SCH (08:30)
[2021-04-06] MEDS: buPROPion 150 MG Tab.SR PO SCH ×2 (08:31→20:22)
[2021-04-06] MEDS: Potassium Chloride 10 MEQ Tab.ER PO SCH ×2 (08:31→20:22)
[2021-04-06] MEDS: rOPINIRole 0.25 MG Tab PO SCH ×2 (08:31→20:21)
[2021-04-06] MEDS: Metoprolol Tartrate 25 MG Tab PO SCH ×2 (08:32→20:22)
[2021-04-06] MEDS: Formoterol/Mometasone 100-5 MCG 8.8 GM Inhaler IH SCH ×2 (08:41→20:09)
[2021-04-06 08:48] LABS: HEMOGLOBIN A1C 5.6 %
--- NOTE | 2021-04-06 10:04 | PCM.PN ---
- General Info Date of Service: 04/06/21 Admission Dx/Problem (Free Text): Admission Diagnosis/Problem Admission Diagnosis/Problem Exacerbation of chronic obstructive pulmonary Subjective Update: The patient is a 76-year-old gentleman who has been admitted to acute hospitalization due to hypercapnic respiratory failure and COPD exacerbation. The patient has been doing well today. His breathing is returned to almost normal. The patient overall is feeling somewhat weak and fatigued today. The patient has been tolerating his diet. He is denied any new pain. Functional Status: Reports: Pain Controlled, Tolerating Diet - Review of Systems General: Reports: Weakness HEENT: Reports: No Symptoms Pulmonary: Reports: Shortness of Breath, Cough Cardiovascular: Reports: No Symptoms Gastrointestinal: Reports: No Symptoms Genitourinary: Reports: No Symptoms Musculoskeletal: Reports: No Symptoms Skin: Reports: No Symptoms Neurological: Reports: No Symptoms Psychiatric: Reports: No Symptoms - Patient Data Vitals - Most Recent: Last Vital Signs Temp 36.6 C 04/06/21 02:29 Pulse 63 04/06/21 08:32 Resp 14 04/06/21 02:29 BP 131/63 04/06/21 08:32 Pulse Ox 94 L 04/06/21 08:41 Weight - Most Recent: 96.479 kg I&O - Last 24 Hours: Intake & Output 04/05/21 04/06/21 04/06/21 22:59 06:59 14:59 Intake Total 1870 500 Output Total 700 800 Balance 1170 -300 Lab Results Last 24 Hours: Laboratory Results - last 24 hr 04/05/21 04/05/21 04/05/21 Range/Units 09:42 09:42 16:45 WBC (4.23-9.07) K/mm3 RBC (4.63-6.08) M/mm3 Hgb (13.7-17.5) gm/dl Hct (40.1-51.0) % MCV (79.0-92.2) fl MCH (25.7-32.2) pg MCHC (32.2-35.5) g/dl RDW Std Deviation (35.1-43.9) fL Plt Count (163-337) K/mm3 MPV (9.4-12.3) fl Neut % (Auto) (34.0-67.9) % Lymph % (Auto) (21.8-53.1) % [place] % (Auto) (5.3-12.2) % Eos % (Auto) (0.8-7.0) Baso % (Auto) (0.1-1.2) % Neut # (Auto) (1.78-5.38) K/mm3 Lymph # (Auto) (1.32-3.57) K/mm3 [place] # (Auto) (0.30-0.82) K/mm3 Eos # (Auto) (0.04-0.54) K/mm3 Baso # (Auto) (0.01-0.08) K/mm3 Manual Slide Review Abnormal smear Sodium 147 H (136-145) mEq/L Potassium 4.8 (3.5-5.1) mEq/L Chloride 108 H (98-107) mEq/L Carbon Dioxide 41 H* (21-32) mEq/L Anion Gap 2.8 L (5-15) BUN 22 H (7-18) mg/dL Creatinine 1.5 H (0.7-1.3) mg/dL Est Cr Clr Drug Dosing 39.90 mL/min Estimated GFR (MDRD) 45 (>60) mL/min BUN/Creatinine Ratio 14.7 (14-18) Glucose 283 H (70-99) mg/dL Hemoglobin A1c ( - 5.6) % Calcium 8.3 L (8.5-10.1) mg/dL Magnesium 2.4 (1.8-2.4) mg/dL Total Bilirubin 0.4 (0.2-1.0) mg/dL AST 19 (15-37) U/L ALT 50 (16-63) U/L Alkaline Phosphatase 52 (46-116) U/L Total Protein 5.9 L (6.4-8.2) g/dl Albumin 2.9 L (3.4-5.0) g/dl Globulin 3.0 gm/dL Albumin/Globulin Ratio 1.0 (1-2) Urine Color Yellow (Yellow) Urine Appearance Slt cloudy H (Clear) Urine pH 6.0 (5.0-8.0) Ur Specific [place] > or = 1.030 (1.005-1.030) Urine Protein 1+ H (Negative) Urine Glucose (UA) Trace H (Negative) Urine Ketones Negative (Negative) Urine Occult Blood 2+ H (Negative) Urine Nitrite Positive H (Negative) Urine Bilirubin Negative (Negative) Urine Urobilinogen 0.2 (0.2-1.0) Ur Leukocyte Esterase Trace H (Negative) Urine RBC 20-30 H (0-5) /hpf Urine WBC 10-20 H (0-5) /hpf Ur Squamous Epith Cells 0-5 (0-5) /hpf Urine Bacteria Moderate H (FEW) /hpf Urine Mucus Few (FEW) /hpf 04/06/21 04/06/21 04/06/21 Range/Units 05:04 05:41 05:41 WBC 9.67 H (4.23-9.07) K/mm3 RBC 3.95 L (4.63-6.08) M/mm3 Hgb 10.7 L (13.7-17.5) gm/dl Hct 39.8 L (40.1-51.0) % MCV 100.8 H (79.0-92.2) fl MCH 27.1 (25.7-32.2) pg MCHC 26.9 L (32.2-35.5) g/dl RDW Std Deviation 64.9 H (35.1-43.9) fL Plt Count 162 L (163-337) K/mm3 MPV 12.0 (9.4-12.3) fl Neut % (Auto) 95.5 H (34.0-67.9) % Lymph % (Auto) 2.0 L (21.8-53.1) % [place] % (Auto) 2.4 L (5.3-12.2) % Eos % (Auto) 0 L (0.8-7.0) Baso % (Auto) 0.0 L (0.1-1.2) % Neut # (Auto) 9.24 H (1.78-5.38) K/mm3 Lymph # (Auto) 0.19 L (1.32-3.57) K/mm3 [place] # (Auto) 0.23 L (0.30-0.82) K/mm3 Eos # (Auto) 0.00 L (0.04-0.54) K/mm3 Baso # (Auto) 0.00 L (0.01-0.08) K/mm3 Manual Slide Review Abnormal smear Sodium 147 H (136-145) mEq/L Potassium 5.1 (3.5-5.1) mEq/L Chloride 110 H (98-107) mEq/L Carbon Dioxide 40 H (21-32) mEq/L Anion Gap 2.1 L (5-15) BUN 27 H (7-18) mg/dL Creatinine 1.3 (0.7-1.3) mg/dL Est Cr Clr Drug Dosing 46.04 mL/min Estimated GFR (MDRD) 54 (>60) mL/min BUN/Creatinine Ratio 20.8 H (14-18) Glucose 181 H (70-99) mg/dL Hemoglobin A1c 5.6 ( - 5.6) % Calcium 8.3 L (8.5-10.1) mg/dL Magnesium (1.8-2.4) mg/dL Total Bilirubin 0.3 (0.2-1.0) mg/dL AST 13 L (15-37) U/L ALT 42 (16-63) U/L Alkaline Phosphatase 48 (46-116) U/L Total Protein 5.9 L (6.4-8.2) g/dl Albumin 2.7 L (3.4-5.0) g/dl Globulin 3.2 gm/dL Albumin/Globulin Ratio 0.8 L (1-2) Urine Color (Yellow) Urine Appearance (Clear) Urine pH (5.0-8.0) Ur Specific [place] (1.005-1.030) Urine Protein (Negative) Urine Glucose (UA) (Negative) Urine Ketones (Negative) Urine Occult Blood (Negative) Urine Nitrite (Negative) Urine Bilirubin (Negative) Urine Urobilinogen (0.2-1.0) Ur Leukocyte Esterase (Negative) Urine RBC (0-5) /hpf Urine WBC (0-5) /hpf Ur Squamous Epith Cells (0-5) /hpf Urine Bacteria (FEW) /hpf Urine Mucus (FEW) /hpf Med Orders - Current: Current Medications Bupropion HCl (Bupropion 150 Mg Tab.Sr) 150 mg PO BID [facility] Last Admin: 04/06/21 08:31 Dose: 150 mg Documented by: Enoxaparin Sodium (Enoxaparin 30 Mg/0.3 Ml Syringe) 30 mg SUBCUT Q24H [facility] Last Admin: 04/05/21 15:21 Dose: 30 mg Documented by: Finasteride (Finasteride 5 Mg Tab) 5 mg PO DAILY [facility] Last Admin: 04/06/21 08:30 Dose: 5 mg Documented by: Furosemide (Furosemide 40 Mg Tab) 40 mg PO DAILY [facility] Last Admin: 04/06/21 08:29 Dose: 40 mg Documented by: Azithromycin 500 mg/ Sodium (Chloride) 250 mls @ 250 mls/hr IV Q24H [facility] Last Admin: 04/05/21 11:32 Dose: 250 mls/hr Documented by: Methylprednisolone Sodium Succinate (Methylprednisolone Sodium Succinate 125 Mg/2 Ml Sdv) 125 mg IV Q8H [facility] Last Admin: 04/06/21 02:32 Dose: 125 mg Documented by: Metoprolol Tartrate (Metoprolol Tartrate 25 Mg Tab) 25 mg PO BID [facility] Last Admin: 04/06/21 08:32 Dose: 25 mg Documented by: Mometasone Furoate/Formoterol Fumar (Formoterol/Mometasone 100-5 Mcg 8.8 Gm Inhaler) 0 puff IH BID [facility] Last Admin: 04/06/21 08:41 Dose: 2 puff Documented by: Potassium Chloride (Potassium Chloride 10 Meq Tab.Er) 10 meq PO BID [facility] Last Admin: 04/06/21 08:31 Dose: 10 meq Documented by: Pramipexole Dihydrochloride (Pramipexole 0.5 Mg Tab) 1 mg PO BID [facility] Last Admin: 04/06/21 08:28 Dose: 1 mg Documented by: Ropinirole HCl (Ropinirole 0.25 Mg Tab) 0.5 mg PO BID [facility] Last Admin: 04/06/21 08:31 Dose: 0.5 mg Documented by: Tamsulosin HCl (Tamsulosin 0.4 Mg Cap.Er) 0.4 mg PO DAILY [facility] Last Admin: 04/06/21 08:29 Dose: 0.4 mg Documented by: Discontinued Medications Albuterol/Ipratropium (Albuterol/Ipratropium 3.0-0.5 Mg/3 Ml Neb Soln) 3 ml NEB ONETIME ONE Stop: 04/04/21 17:34 Last Admin: 04/04/21 17:42 Dose: 3 ml Documented by: Methylprednisolone Sodium Succinate (Methylprednisolone Sodium Succinate 125 Mg/2 Ml Sdv) 125 mg IVPUSH ONETIME ONE Stop: 09/24/21 18:52 Last Admin: 04/04/21 19:15 Dose: 125 mg Documented by: - Exam Quality Assessment: Supplemental Oxygen, Urine Catheter, DVT Prophylaxis Urinary Catheter Total Time: 1Days 7Hours General: Alert, Oriented, Cooperative, No Acute Distress HEENT: Pupils Equal, Pupils Reactive, EOMI, Mucous Membr. Moist/[place] Neck: Supple, Trachea Midline Lungs: Decreased Breath Sounds, Crackles, Other (Pursed lip breathing) Cardiovascular: Regular Rate, Regular Rhythm GI/Abdominal Exam: Normal Bowel Sounds, Soft, No Distention, Other (Umbilical hernia) Back Exam: Normal Inspection, Full Range of Motion Extremities: Normal Inspection, No Pedal Edema Skin: Warm, Dry, Intact Neurological: No New Focal Deficit, Normal Speech Psy/Mental Status: Alert, Normal Affect, Normal Mood - Patient Data Lab Results Last 24 hrs: Laboratory Results - last 24 hr 04/05/21 04/05/21 04/05/21 Range/Units 09:42 09:42 16:45 WBC (4.23-9.07) K/mm3 RBC (4.63-6.08) M/mm3 Hgb (13.7-17.5) gm/dl Hct (40.1-51.0) % MCV (79.0-92.2) fl MCH (25.7-32.2) pg MCHC (32.2-35.5) g/dl RDW Std Deviation (35.1-43.9) fL Plt Count (163-337) K/mm3 MPV (9.4-12.3) fl Neut % (Auto) (34.0-67.9) % Lymph % (Auto) (21.8-53.1) % [place] % (Auto) (5.3-12.2) % Eos % (Auto) (0.8-7.0) Baso % (Auto) (0.1-1.2) % Neut # (Auto) (1.78-5.38) K/mm3 Lymph # (Auto) (1.32-3.57) K/mm3 [place] # (Auto) (0.30-0.82) K/mm3 Eos # (Auto) (0.04-0.54) K/mm3 Baso # (Auto) (0.01-0.08) K/mm3 Manual Slide Review Abnormal smear Sodium 147 H (136-145) mEq/L Potassium 4.8 (3.5-5.1) mEq/L Chloride 108 H (98-107) mEq/L Carbon Dioxide 41 H* (21-32) mEq/L Anion Gap 2.8 L (5-15) BUN 22 H (7-18) mg/dL Creatinine 1.5 H (0.7-1.3) mg/dL Est Cr Clr Drug Dosing 39.90 mL/min Estimated GFR (MDRD) 45 (>60) mL/min BUN/Creatinine Ratio 14.7 (14-18) Glucose 283 H (70-99) mg/dL Hemoglobin A1c ( - 5.6) % Calcium 8.3 L (8.5-10.1) mg/dL Magnesium 2.4 (1.8-2.4) mg/dL Total Bilirubin 0.4 (0.2-1.0) mg/dL AST 19 (15-37) U/L ALT 50 (16-63) U/L Alkaline Phosphatase 52 (46-116) U/L Total Protein 5.9 L (6.4-8.2) g/dl Albumin 2.9 L (3.4-5.0) g/dl Globulin 3.0 gm/dL Albumin/Globulin Ratio 1.0 (1-2) Urine Color Yellow (Yellow) Urine Appearance Slt cloudy H (Clear) Urine pH 6.0 (5.0-8.0) Ur Specific [place] > or = 1.030 (1.005-1.030) Urine Protein 1+ H (Negative) Urine Glucose (UA) Trace H (Negative) Urine Ketones Negative (Negative) Urine Occult Blood 2+ H (Negative) Urine Nitrite Positive H (Negative) Urine Bilirubin Negative (Negative) Urine Urobilinogen 0.2 (0.2-1.0) Ur Leukocyte Esterase Trace H (Negative) Urine RBC 20-30 H (0-5) /hpf Urine WBC 10-20 H (0-5) /hpf Ur Squamous Epith Cells 0-5 (0-5) /hpf Urine Bacteria Moderate H (FEW) /hpf Urine Mucus Few (FEW) /hpf 04/06/21 04/06/21 04/06/21 Range/Units 05:04 05:41 05:41 WBC 9.67 H (4.23-9.07) K/mm3 RBC 3.95 L (4.63-6.08) M/mm3 Hgb 10.7 L (13.7-17.5) gm/dl Hct 39.8 L (40.1-51.0) % MCV 100.8 H (79.0-92.2) fl MCH 27.1 (25.7-32.2) pg MCHC 26.9 L (32.2-35.5) g/dl RDW Std Deviation 64.9 H (35.1-43.9) fL Plt Count 162 L (163-337) K/mm3 MPV 12.0 (9.4-12.3) fl Neut % (Auto) 95.5 H (34.0-67.9) % Lymph % (Auto) 2.0 L (21.8-53.1) % [place] % (Auto) 2.4 L (5.3-12.2) % Eos % (Auto) 0 L (0.8-7.0) Baso % (Auto) 0.0 L (0.1-1.2) % Neut # (Auto) 9.24 H (1.78-5.38) K/mm3 Lymph # (Auto) 0.19 L (1.32-3.57) K/mm3 [place] # (Auto) 0.23 L (0.30-0.82) K/mm3 Eos # (Auto) 0.00 L (0.04-0.54) K/mm3 Baso # (Auto) 0.00 L (0.01-0.08) K/mm3 Manual Slide Review Abnormal smear Sodium 147 H (136-145) mEq/L Potassium 5.1 (3.5-5.1) mEq/L Chloride 110 H (98-107) mEq/L Carbon Dioxide 40 H (21-32) mEq/L Anion Gap 2.1 L (5-15) BUN 27 H (7-18) mg/dL Creatinine 1.3 (0.7-1.3) mg/dL Est Cr Clr Drug Dosing 46.04 mL/min Estimated GFR (MDRD) 54 (>60) mL/min BUN/Creatinine Ratio 20.8 H (14-18) Glucose 181 H (70-99) mg/dL Hemoglobin A1c 5.6 ( - 5.6) % Calcium 8.3 L (8.5-10.1) mg/dL Magnesium (1.8-2.4) mg/dL Total Bilirubin 0.3 (0.2-1.0) mg/dL AST 13 L (15-37) U/L ALT 42 (16-63) U/L Alkaline Phosphatase 48 (46-116) U/L Total Protein 5.9 L (6.4-8.2) g/dl Albumin 2.7 L (3.4-5.0) g/dl Globulin 3.2 gm/dL Albumin/Globulin Ratio 0.8 L (1-2) Urine Color (Yellow) Urine Appearance (Clear) Urine pH (5.0-8.0) Ur Specific [place] (1.005-1.030) Urine Protein (Negative) Urine Glucose (UA) (Negative) Urine Ketones (Negative) Urine Occult Blood (Negative) Urine Nitrite (Negative) Urine Bilirubin (Negative) Urine Urobilinogen (0.2-1.0) Ur Leukocyte Esterase (Negative) Urine RBC (0-5) /hpf Urine WBC (0-5) /hpf Ur Squamous Epith Cells (0-5) /hpf Urine Bacteria (FEW) /hpf Urine Mucus (FEW) /hpf Result Diagrams: 04/06/21 05:41 04/06/21 05:41 Sepsis Event Note - Evaluation Sepsis Screening Result: No Definite Risk - Focused Exam Vital Signs: Vital Signs Temp Pulse Resp BP Pulse Ox Pulse Ox 04/06/21 08:41 94 L 04/06/21 08:32 63 131/63 04/06/21 02:29 36.6 C 64 14 126/67 96 - Problem List & Annotations (1) Acute and chronic respiratory failure ([id number]) SNOMED Code(s): 26774383 Code(s): J96.20 - ACUTE AND CHR RESP FAILURE, UNSP W HYPOXIA OR HYPERCAPNIA Status: Chronic Priority: High Current Visit: Yes Qualifiers: Respiratory failure complication: hypoxia and hypercapnia Qualified Code(s): J96.21 - Acute and chronic respiratory failure with hypoxia; J96.22 - Acute and chronic respiratory failure with hypercapnia (2) Urinary retention SNOMED Code(s): 677179433 Code(s): R33.9 - RETENTION OF URINE, UNSPECIFIED Status: Chronic Priority: High Current Visit: Yes (3) COPD with exacerbation SNOMED Code(s): 967634855 Code(s): J44.1 - CHRONIC OBSTRUCTIVE PULMONARY DISEASE W (ACUTE) EXACERBATION Status: Chronic Priority: High Current Visit: Yes (4) Hypercapnia with mixed acid-base disorder SNOMED Code(s): 97372740 Code(s): E87.4 - MIXED DISORDER OF ACID-BASE BALANCE Status: Chronic Priority: High Current Visit: Yes - Problem List Review Problem List Initiated/Reviewed/Updated: Yes - My Orders Last 24 Hours: My Active Orders 04/05/21 09:07 Oxygen Therapy [RC] PRN Up to Chair [RC] ASDIRECTED VTE/DVT Education [RC] PER UNIT ROUTINE Vital Signs [RC] Q4HR 04/05/21 09:08 Ambulate [RC] PER UNIT ROUTINE 04/05/21 10:00 Azithromycin [Zithromax] 500 mg Sodium Chloride 0.9% [Normal Saline (AdvBag)] 250 ml IV Q24H 04/05/21 11:00 methylPREDNISolone Sod Succ [Solu-MEDROL] 125 mg IV Q8H 04/05/21 12:54 Renew/Continue Urinary Catheter [OM.PC] Routine 04/05/21 14:00 Enoxaparin [Lovenox] 30 mg SUBCUT Q24H 04/05/21 16:45 CULTURE URINE [MREF] Routine 04/05/21 21:00 Metoprolol Tartrate [Lopressor] 25 mg PO BID Potassium Chloride [Klor-Con 10] 10 meq PO BID Pramipexole [Mirapex] 1 mg PO BID rOPINIRole [Requip] 0.5 mg PO BID 04/06/21 09:00 Furosemide [Lasix] 40 mg PO DAILY Mometasone/Formoterol [Dulera 100-5 MCG] 0 puff IH BID - Plan Plan:: The patient is a 76-year-old gentleman who has been admitted to acute hospitalization secondary to hypercapnia. This also represents acute on chronic respiratory failure. He will be treated for exacerbation of COPD as he has been previously on p.o. antibiotics. The patient is given a azithromycin IV 500 mg daily. He is also been placed on Solu-Medrol 80 mg IV every 8 hours. Repeat laboratory studies have been ordered. I have also ordered the patient to have o xygen support to keep his oxygen saturations around 92%. I suspect that the patient is a chronic CO2 retainer and his bicarb is currently normal for him. Patient will have regular diet as tolerated. The patient will also have DVT prophylaxis with the use of Lovenox 30 mg subcutaneous daily. The patient should be appropriate for discharge in 1 to 2 days. 04/06/2021 The patient is a 76-year-old gentleman who is being retained in hospitalization secondary to his acute on chronic respiratory failure. The patient is still requiring oxygen supports and this will be titrated to keep his saturations around 92%. He is also on a azithromycin 500 mg IV daily and this should continue for at least another 3 days. The patient says that he feels like he can possibly go home tomorrow. Repeat laboratory studies have been ordered. The patient is a chronic CO2 retainer and he is compensated in terms of his respiratory alkalosis. Patient is to continue with his diet as tolerated. He will also continue on Solu-Medrol 80 mg IV every 8 hours. The patient is also having DVT prophylaxis with the use of Lovenox at 30 mg subcutaneous daily.
[2021-04-06] MEDS: Azithromycin 500 MG in Sodium Chloride 0.9% 250 ML IV SCH (10:10)
[2021-04-06] MEDS: Enoxaparin 30 MG/0.3 ML Syringe SUBCUT SCH (14:55)
[2021-04-06] MEDS ORDERED: diphenhydrAMINE 25 MG Cap PO ONE (21:26)
[2021-04-07] MEDS: methylPREDNISolone Sodium Succinate 125 MG/2 ML SDV IV SCH (03:47)
[2021-04-07] MEDS: Formoterol/Mometasone 100-5 MCG 8.8 GM Inhaler IH SCH (08:39)
[2021-04-07] MEDS: Azithromycin 500 MG in Sodium Chloride 0.9% 250 ML IV SCH (09:21)
[2021-04-07] MEDS: Metoprolol Tartrate 25 MG Tab PO SCH (09:22)
[2021-04-07] MEDS: rOPINIRole 0.25 MG Tab PO SCH (09:22)
[2021-04-07] MEDS: Finasteride 5 MG Tab PO SCH (09:22)
[2021-04-07] MEDS: Pramipexole 0.5 MG Tab PO SCH (09:22)
[2021-04-07] MEDS: buPROPion 150 MG Tab.SR PO SCH (09:22)
[2021-04-07] MEDS: Potassium Chloride 10 MEQ Tab.ER PO SCH (09:23)
[2021-04-07] MEDS: Furosemide 40 MG Tab PO SCH (09:23)
[2021-04-07] MEDS: Tamsulosin 0.4 MG Cap.ER PO SCH (09:23)
[2021-04-07] MEDS ORDERED: Azithromycin 250 MG Tab PO ONE (10:00)
--- NOTE | 2021-04-07 11:29 | PCM.DCSUM1 ---
<Junito Jaimes - Last Filed: 04/07/21 11:48> Discharge Summary - Hospital Course HPI Initial Comments: The patient is a 76-year-old gentleman who had presented to the emergency room out of concern for his leaking Ramos catheter. The patient does have chronic indwelling catheter due to problems associated with his prior back surgery. The patient does have chronic shortness of breath and was diagnosed with COPD sometime ago. The patient still uses tobacco. The patient also had laboratory testings that were completed in the emergency department and he was found to be severely hypercapnic. The patient says that he had spoken with his primary care doctor and was placed on an antibiotic likely to be a azithromycin. The patient has denied any chest pain, cough or wheezing. Diagnosis: Stroke: No - Discharge Data Discharge Date: 04/07/21 (Admit date: 04/04/2021) Discharge Disposition: Home, Self-Care 01 Condition: Good - Referral to Home Health Primary Care Physician: Radha Zamora MD - Discharge Diagnosis/Problem(s) (1) Acute and chronic respiratory failure ([id number]) SNOMED Code(s): 05828022 ICD Code: J96.20 - ACUTE AND CHR RESP FAILURE, UNSP W HYPOXIA OR HYPERCAPNIA Status: Chronic Priority: High Qualifiers: Respiratory failure complication: hypoxia and hypercapnia Qualified Code(s): J96.21 - Acute and chronic respiratory failure with hypoxia; J96.22 - Acute and chronic respiratory failure with hypercapnia (2) COPD with exacerbation SNOMED Code(s): 133710551 ICD Code: J44.1 - CHRONIC OBSTRUCTIVE PULMONARY DISEASE W (ACUTE) EXACERBATION Status: Chronic Priority: High (3) Hypercapnia with mixed acid-base disorder SNOMED Code(s): 81360301 ICD Code: E87.4 - MIXED DISORDER OF ACID-BASE BALANCE Status: Chronic Priority: High (4) Urinary retention SNOMED Code(s): 737066925 ICD Code: R33.9 - RETENTION OF URINE, UNSPECIFIED Status: Chronic Priority: High (5) Ramos catheter in place SNOMED Code(s): 787676080 ICD Code: Z97.8 - PRESENCE OF OTHER SPECIFIED DEVICES Status: Chronic Priority: Low (6) Obstructive sleep apnea on CPAP SNOMED Code(s): 58443535 ICD Code: G47.33 - OBSTRUCTIVE SLEEP APNEA (ADULT) (PEDIATRIC); Z99.89 - DEPENDENCE ON OTHER ENABLING MACHINES AND DEVICES Status: Chronic Priority: Medium (7) Oxygen dependent SNOMED Code(s): 740608212787 ICD Code: Z99.81 - DEPENDENCE ON SUPPLEMENTAL OXYGEN Status: Chronic Priority: Medium - Patient Summary/Data Labs Pending at D/C: Urine culture Recommended Follow-up Testing/Procedures: Follow-up with primary care provider within 5 to 7 days of discharge. * Recommend follow-up sleep study. Patient reports that he needs this as he has not had one for some time * Patient discharged on 2 more days of 500 mg azithromycin. * Medrol dose pack prescribed at discharge for COPD exacerbation. * Consider outpatient PFT in the future. Follow-up with urology regarding chronic indwelling Ramos catheter. Hospital Course: This is a 76-year-old male who presented to our ED on 04/04/2021 due issues with his Ramos catheter. While there he was also noting shortness of breath and an ABG was performed showing a PCO2 of 79.4 and a pH of 7.34. He was subsequent admitted to the hospital for hypercapnia and acute on chronic respiratory failure. He was started on 500 mg azithromycin daily and this will be continued for 2 more days at discharge. He did report that he was prescribed what he believes to be azithromycin earlier by his primary care provider however he had not been taking that as he had not picked it up from the pharmacy. He was started on IV push Solu-Medrol and this will be transitioned to a Medrol dose pack at discharge. Throughout his stay his respiratory status did improve. Renal function remained around his baseline. Sugars were noted to be elevated however an A1c was obtained and was 5.6. Ramos catheter was placed in the ED as patient reportedly presented without one. Recommend follow-up with urology regarding this in the future. UA was obtained and although positive is skewed because patient does have chronic indwelling Ramos catheter. He denies any other urinary symptoms. Urine culture was sent and is still pending. Patient will be discharged home today. All home medications were continued. He will be discharged on Medrol Dosepak and 2 more days of 500 mg azithromycin as noted prior. Recommend follow-up with primary care provider within 5 to 7 days of discharge, sooner if needed. Recommend repeat CBC, CMP, and magnesium in follow-up. Recommend outpatient PFT and sleep study in the future. - Patient Instructions Diet: Usual Diet as Tolerated Activity: As Tolerated Driving: Do Not Drive (Until feeling better ) Showering/Bathing: May Shower Notify Provider of: Fever, Increased Pain, Nausea and/or Vomiting Other/Special Instructions: Follow-up with primary care provider within 5 to 7 days of discharge, sooner if needed. Follow-up with urology as directed for chronic indwelling Ramos catheter. Continue Ramos catheter cares as before. You were prescribed a Medrol dose pack, which is a steroid taper. Take this as directed. You should take 2 more days of 500 mg azithromycin and then stop. Continue home medications as directed. Recommend outpatient sleep study as we discussed. Should symptoms return or worsen contact primary care provider or return to the emergency room. - Discharge Plan *PRESCRIPTION DRUG MONITORING PROGRAM REVIEWED*: No *COPY OF PRESCRIPTION DRUG MONITORING REPORT IN PATIENT CHITO: No Prescriptions/Med Rec: Azithromycin 500 mg PO DAILY #2 tablet methylPREDNISolone [Medrol Dose Pack] 4 mg PO ASDIRECTED #1 dospk Tobacco Cessation Medication: Prescription Refused Home Medications: Home Meds Tamsulosin [Flomax] 0.4 mg PO DAILY 07/28/19 [History] buPROPion [Wellbutrin SR] 150 mg PO BID 12/29/20 [History] oxyCODONE 5 mg PO QID PRN 01/07/21 [History] Finasteride [Proscar] 5 mg PO DAILY 04/04/21 [History] Acetaminophen 500 mg PO Q8H PRN 04/05/21 [History] Albuterol Sulfate [Albuterol Sulfate HFA] 2 puff INH Q4H PRN 04/05/21 [History] Calcium Carbonate/Vitamin D3 [Calcium 600-Vit D3 500 Softgel] 1 tab PO DAILY 04/05/21 [History] Docusate Sodium 100 mg PO DAILY 04/05/21 [History] Fluticasone/Vilanterol [Breo Ellipta 100-25 MCG Inhalation Kit] 1 puff INH DAILY 04/05/21 [History] Furosemide [Lasix] 40 mg PO DAILY 04/05/21 [History] Lactobacillus Acidophilus [Probiotic Acidophilus] 1 cap PO DAILY 04/05/21 [His tory] Metoprolol Tartrate 25 mg PO BID 04/05/21 [History] Phytonadione [Vitamin K] 100 mcg PO DAILY 04/05/21 [History] Potassium Chloride [Klor-Con 10] 10 meq PO BID 04/05/21 [History] Pramipexole Di-HCl [Mirapex] 1 mg PO BID 04/05/21 [History] Zolpidem [Ambien] 5 mg PO BEDTIME PRN 04/05/21 [History] atorvaSTATin Calcium [Lipitor] 20 mg PO DAILY 04/05/21 [History] rOPINIRole [Requip] 0.5 mg PO BID 04/05/21 [History] Azithromycin 500 mg PO DAILY #2 tablet 04/07/21 [Rx] methylPREDNISolone [Medrol Dose Pack] 4 mg PO ASDIRECTED #1 dospk 04/07/21 [Rx] Oxygen Therapy Mode: Nasal Cannula Oxygen Flow Rate (L/min): 3 Maintain SpO2% greater than: 88 Patient Handouts: Home Oxygen Use, Adult, Azithromycin tablets, Indwelling Urinary Catheter Care, Adult, Ygeh-[id number]-Adop, Indwelling Urinary Catheter Insertion, Care After, Methylprednisolone tablets, Steps to Quit Smoking Forms: ED Department Discharge Referrals: Radha Zamora MD [Primary Care Provider] - 04/17/21 1:45 pm (this is your check in time. ) Leta Tay MD [Ordering Only Provider] - 04/10/21 9:30 am (This is arrival time at [place] in [place] and it's [place] time. This appointment is regarding your catheter into your bladder. ) - Discharge Summary/Plan Comment DC Time >30 min.: Yes Total # of Minutes for Discharge Time: 45 - General Info Date of Service: 04/07/21 Admission Dx/Problem (Free Text: Admission Diagnosis/Problem Admission Diagnosis/Problem Exacerbation of chronic obstructive pulmonary Functional Status: Reports: Pain Controlled, Tolerating Diet, Ambulating, Urinating. Denies: New Symptoms - Review of Systems General: Reports: No Symptoms. Denies: Fever, Weakness, Fatigue, Malaise, Chills HEENT: Reports: No Symptoms. Denies: Headaches, Sore Throat Pulmonary: Reports: Shortness of Breath. Denies: Pleuritic Chest Pain, Cough, Sputum, Wheezing Cardiovascular: Reports: Dyspnea on Exertion, Edema. Denies: Chest Pain, Palpitations Gastrointestinal: Reports: No Symptoms. Denies: Abdominal Pain, Constipation, Diarrhea, Nausea, Vomiting Genitourinary: Reports: No Symptoms. Denies: Pain Musculoskeletal: Reports: No Symptoms Skin: Reports: No Symptoms. Denies: Cyanosis Neurological: Reports: No Symptoms. Denies: Confusion, Dizziness, Headache, Numbness, Pre-Existing Deficit, Tingling, Difficulty Walking, Gait Disturbance Psychiatric: Reports: No Symptoms - Patient Data Vitals - Most Recent: Last Vital Signs Temp 98.2 F 04/07/21 07:36 Pulse 57 L 04/07/21 09:22 Resp 20 04/07/21 07:36 BP 142/60 H 04/07/21 09:22 Pulse Ox 94 L 04/07/21 08:39 Weight - Most Recent: 99.745 kg I&O - Last 24 hours: Intake & Output 04/06/21 04/07/21 04/07/21 22:59 06:59 14:59 Intake Total 1700 1000 Output Total 2000 900 Balance -300 100 Lab Results - Last 24 hrs: Laboratory Results - last 24 hr 04/07/21 04/07/21 Range/Units 05:55 05:55 WBC 12.95 H (4.23-9.07) K/mm3 RBC 3.94 L (4.63-6.08) M/mm3 Hgb 10.6 L (13.7-17.5) gm/dl Hct 39.1 L (40.1-51.0) % MCV 99.2 H (79.0-92.2) fl MCH 26.9 (25.7-32.2) pg MCHC 27.1 L (32.2-35.5) g/dl RDW Std Deviation 64.9 H (35.1-43.9) fL Plt Count 161 L (163-337) K/mm3 MPV 12.3 (9.4-12.3) fl Neut % (Auto) 93.1 H (34.0-67.9) % Lymph % (Auto) 1.7 L (21.8-53.1) % Real % (Auto) 5.0 L (5.3-12.2) % Eos % (Auto) 0 L (0.8-7.0) Baso % (Auto) 0.0 L (0.1-1.2) % Neut # (Auto) 12.06 H (1.78-5.38) K/mm3 Lymph # (Auto) 0.22 L (1.32-3.57) K/mm3 Real # (Auto) 0.65 (0.30-0.82) K/mm3 Eos # (Auto) 0.00 L (0.04-0.54) K/mm3 Baso # (Auto) 0.00 L (0.01-0.08) K/mm3 Sodium 150 H (136-145) mEq/L Potassium 4.2 (3.5-5.1) mEq/L Chloride 109 H (98-107) mEq/L Carbon Dioxide 39 H (21-32) mEq/L Anion Gap 6.2 (5-15) BUN 34 H (7-18) mg/dL Creatinine 1.4 H (0.7-1.3) mg/dL Est Cr Clr Drug Dosing 42.75 mL/min Estimated GFR (MDRD) 49 (>60) mL/min BUN/Creatinine Ratio 24.3 H (14-18) Glucose 202 H (70-99) mg/dL Calcium 8.4 L (8.5-10.1) mg/dL [facility] Results - Last 24 hrs: Microbiology 04/05/21 16:45 Urine Culture - Preliminary Urine Escherichia Coli Med Orders - Current: Current Medications Bupropion HCl (Bupropion 150 Mg Tab.Sr) 150 mg PO BID [facility] Last Admin: 04/07/21 09:22 Dose: 150 mg Documented by: Enoxaparin Sodium (Enoxaparin 30 Mg/0.3 Ml Syringe) 30 mg SUBCUT Q24H [facility] Last Admin: 04/06/21 14:55 Dose: 30 mg Documented by: Finasteride (Finasteride 5 Mg Tab) 5 mg PO DAILY [facility] Last Admin: 04/07/21 09:22 Dose: 5 mg Documented by: Furosemide (Furosemide 40 Mg Tab) 40 mg PO DAILY [facility] Last Admin: 04/07/21 09:23 Dose: 40 mg Documented by: Methylprednisolone Sodium Succinate (Methylprednisolone Sodium Succinate 125 Mg/2 Ml Sdv) 125 mg IV Q8H [facility] Last Admin: 04/07/21 03:47 Dose: 125 mg Documented by: Metoprolol Tartrate (Metoprolol Tartrate 25 Mg Tab) 25 mg PO BID [facility] Last Admin: 04/07/21 09:22 Dose: 25 mg Documented by: Mometasone Furoate/Formoterol Fumar (Formoterol/Mometasone 100-5 Mcg 8.8 Gm Inhaler) 0 puff IH BID [facility] Last Admin: 04/07/21 08:39 Dose: 2 puff Documented by: Potassium Chloride (Potassium Chloride 10 Meq Tab.Er) 10 meq PO BID [facility] Last Admin: 04/07/21 09:23 Dose: 10 meq Documented by: Pramipexole Dihydrochloride (Pramipexole 0.5 Mg Tab) 1 mg PO BID [facility] Last Admin: 04/07/21 09:22 Dose: 1 mg Documented by: Ropinirole HCl (Ropinirole 0.25 Mg Tab) 0.5 mg PO BID [facility] Last Admin: 04/07/21 09:22 Dose: 0.5 mg Documented by: Tamsulosin HCl (Tamsulosin 0.4 Mg Cap.Er) 0.4 mg PO DAILY [facility] Last Admin: 04/07/21 09:23 Dose: 0.4 mg Documented by: Discontinued Medications Albuterol/Ipratropium (Albuterol/Ipratropium 3.0-0.5 Mg/3 Ml Neb Soln) 3 ml NEB ONETIME ONE Stop: 04/04/21 17:34 Last Admin: 04/04/21 17:42 Dose: 3 ml Documented by: Azithromycin (Azithromycin 250 Mg Tab) 500 mg PO ONETIME ONE Stop: 04/07/21 10:01 Last Admin: 04/07/21 09:41 Dose: 500 mg Documented by: Diphenhydramine HCl (Diphenhydramine 25 Mg Cap) 25 mg PO ONETIME ONE Stop: 04/06/21 21:27 Last Admin: 04/06/21 22:01 Dose: 25 mg Documented by: Azithromycin 500 mg/ Sodium (Chloride) 250 mls @ 250 mls/hr IV Q24H [facility] Last Infusion: 04/06/21 11:10 Dose: Infused Documented by: Methylprednisolone Sodium Succinate (Methylprednisolone Sodium Succinate 125 Mg/2 Ml Sdv) 125 mg IVPUSH ONETIME ONE Stop: 04/04/21 18:52 Last Admin: 04/04/21 19:15 Dose: 125 mg Documented by: - Exam Quality Assessment: Reports: Supplemental Oxygen (3L), Urine Catheter (Chronic indwelling ), DVT Prophylaxis General: Reports: Alert, Oriented, Cooperative, No Acute Distress HEENT: Reports: Pupils Equal, Pupils Reactive, Mucous Membr. Moist/[place] Neck: Reports: Supple, Trachea Midline Lungs: Reports: Normal Respiratory Effort, Decreased Breath Sounds, Crackles, Wheezing Cardiovascular: Reports: Regular Rate, Regular Rhythm GI/Abdominal Exam: Normal Bowel Sounds, Soft, Non-Tender, No Distention (Male) Exam: Deferred Rectal (Males) Exam: Deferred Back Exam: Reports: Normal Inspection, Full Range of Motion Extremities: Normal Inspection, Normal Range of Motion, Non-Tender, Normal Capillary Refill, Pedal Edema (1+) Skin: Reports: Warm, Dry, Intact Neurological: Reports: No New Focal Deficit Psy/Mental Status: Reports: Alert, Normal Affect, Normal Mood <ZoraNicolas campa M - Last Filed: 04/07/21 13:40> Discharge Summary - Referral to Home Health Primary Care Physician: Radha Zamora MD - Discharge Diagnosis/Problem(s) (1) Acute and chronic respiratory failure ([id number]) SNOMED Code(s): 54415628 ICD Code: J96.20 - ACUTE AND CHR RESP FAILURE, UNSP W HYPOXIA OR HYPERCAPNIA Status: Chronic Priority: High Qualifiers: Respiratory failure complication: hypoxia and hypercapnia Qualified Code(s): J96.21 - Acute and chronic respiratory failure with hypoxia; J96.22 - Acute and chronic respiratory failure with hypercapnia (2) Urinary retention SNOMED Code(s): 676269236 ICD Code: R33.9 - RETENTION OF URINE, UNSPECIFIED Status: Chronic Priority: High (3) COPD with exacerbation SNOMED Code(s): 071813771 ICD Code: J44.1 - CHRONIC OBSTRUCTIVE PULMONARY DISEASE W (ACUTE) EXACERBATION Status: Chronic Priority: High (4) Hypercapnia with mixed acid-base disorder SNOMED Code(s): 41929220 ICD Code: E87.4 - MIXED DISORDER OF ACID-BASE BALANCE Status: Chronic Priority: High - Patient Data Vitals - Most Recent: Last Vital Signs Temp 36.8 C 04/07/21 07:36 Pulse 57 L 04/07/21 09:22 Resp 20 04/07/21 07:36 BP 142/60 H 04/07/21 09:22 Pulse Ox 94 L 04/07/21 08:39 I&O - Last 24 hours: Intake & Output 04/06/21 04/07/21 04/07/21 22:59 06:59 14:59 Intake Total 1700 1000 Output Total 2000 900 Balance -300 100 Lab Results - Last 24 hrs: Laboratory Results - last 24 hr 04/07/21 04/07/21 Range/Units 05:55 05:55 WBC 12.95 H (4.23-9.07) K/mm3 RBC 3.94 L (4.63-6.08) M/mm3 Hgb 10.6 L (13.7-17.5) gm/dl Hct 39.1 L (40.1-51.0) % MCV 99.2 H (79.0-92.2) fl MCH 26.9 (25.7-32.2) pg MCHC 27.1 L (32.2-35.5) g/dl RDW Std Deviation 64.9 H (35.1-43.9) fL Plt Count 161 L (163-337) K/mm3 MPV 12.3 (9.4-12.3) fl Neut % (Auto) 93.1 H (34.0-67.9) % Lymph % (Auto) 1.7 L (21.8-53.1) % Real % (Auto) 5.0 L (5.3-12.2) % Eos % (Auto) 0 L (0.8-7.0) Baso % (Auto) 0.0 L (0.1-1.2) % Neut # (Auto) 12.06 H (1.78-5.38) K/mm3 Lymph # (Auto) 0.22 L (1.32-3.57) K/mm3 Real # (Auto) 0.65 (0.30-0.82) K/mm3 Eos # (Auto) 0.00 L (0.04-0.54) K/mm3 Baso # (Auto) 0.00 L (0.01-0.08) K/mm3 Sodium 150 H (136-145) mEq/L Potassium 4.2 (3.5-5.1) mEq/L Chloride 109 H (98-107) mEq/L Carbon Dioxide 39 H (21-32) mEq/L Anion Gap 6.2 (5-15) BUN 34 H (7-18) mg/dL Creatinine 1.4 H (0.7-1.3) mg/dL Est Cr Clr Drug Dosing 42.75 mL/min Estimated GFR (MDRD) 49 (>60) mL/min BUN/Creatinine Ratio 24.3 H (14-18) Glucose 202 H (70-99) mg/dL Calcium 8.4 L (8.5-10.1) mg/dL [facility] Results - Last 24 hrs: Microbiology 04/05/21 16:45 Urine Culture - Preliminary Urine Escherichia Coli Med Orders - Current: Current Medications Discontinued Medications Albuterol/Ipratropium (Albuterol/Ipratropium 3.0-0.5 Mg/3 Ml Neb Soln) 3 ml NEB ONETIME ONE Stop: 04/04/21 17:34 Last Admin: 04/04/21 17:42 Dose: 3 ml Documented by: Azithromycin (Azithromycin 250 Mg Tab) 500 mg PO ONETIME ONE Stop: 04/07/21 10:01 Last Admin: 04/07/21 09:41 Dose: 500 mg Documented by: Bupropion HCl (Bupropion 150 Mg Tab.Sr) 150 mg PO BID [facility] Last Admin: 04/07/21 09:22 Dose: 150 mg Documented by: Diphenhydramine HCl (Diphenhydramine 25 Mg Cap) 25 mg PO ONETIME ONE Stop: 04/06/21 21:27 Last Admin: 04/06/21 22:01 Dose: 25 mg Documented by: Enoxaparin Sodium (Enoxaparin 30 Mg/0.3 Ml Syringe) 30 mg SUBCUT Q24H [facility] Last Admin: 04/06/21 14:55 Dose: 30 mg Documented by: Finasteride (Finasteride 5 Mg Tab) 5 mg PO DAILY [facility] Last Admin: 04/07/21 09:22 Dose: 5 mg Documented by: Furosemide (Furosemide 40 Mg Tab) 40 mg PO DAILY [facility] Last Admin: 04/07/21 09:23 Dose: 40 mg Documented by: Azithromycin 500 mg/ Sodium (Chloride) 250 mls @ 250 mls/hr IV Q24H [facility] Last Infusion: 04/06/21 11:10 Dose: Infused Documented by: Methylprednisolone Sodium Succinate (Methylprednisolone Sodium Succinate 125 Mg/2 Ml Sdv) 125 mg IVPUSH ONETIME ONE Stop: 04/04/21 18:52 Last Admin: 04/04/21 19:15 Dose: 125 mg Documented by: Methylprednisolone Sodium Succinate (Methylprednisolone Sodium Succinate 125 Mg/2 Ml Sdv) 125 mg IV Q8H [facility] Last Admin: 04/07/21 03:47 Dose: 125 mg Documented by: Metoprolol Tartrate (Metoprolol Tartrate 25 Mg Tab) 25 mg PO BID [facility] Last Admin: 04/07/21 09:22 Dose: 25 mg Documented by: Mometasone Furoate/Formoterol Fumar (Formoterol/Mometasone 100-5 Mcg 8.8 Gm Inhaler) 0 puff IH BID [facility] Last Admin: 04/07/21 08:39 Dose: 2 puff Documented by: Potassium Chloride (Potassium Chloride 10 Meq Tab.Er) 10 meq PO BID [facility] Last Admin: 04/07/21 09:23 Dose: 10 meq Documented by: Pramipexole Dihydrochloride (Pramipexole 0.5 Mg Tab) 1 mg PO BID [facility] Last Admin: 04/07/21 09:22 Dose: 1 mg Documented by: Ropinirole HCl (Ropinirole 0.25 Mg Tab) 0.5 mg PO BID [facility] Last Admin: 04/07/21 09:22 Dose: 0.5 mg Documented by: Tamsulosin HCl (Tamsulosin 0.4 Mg Cap.Er) 0.4 mg PO DAILY [facility] Last Admin: 04/07/21 09:23 Dose: 0.4 mg Documented by: - Free Text/Narrative Note: I have seen and examined the patient independently of Junito Jaimes PA-C. I have discussed the case with him and reviewed and agree with the plan of care as outlined by him. Please see orders.
== END 2021-04-07 11:22 | disposition home or self-care (01) | DRG 189 ==
LOC: JD.ED 16:29 → JD.MS 19:44
PROVIDERS: ADMIT Internal Medicine; ATTEND Internal Medicine
DX: J96.21 Acute and chronic respiratory failure with hypoxia (principal); R09.02 Hypoxemia; R06.89 Other abnormalities of breathing; J44.1 Chronic obstructive pulmonary disease with (acute) exacerbation; G47.30 Sleep apnea, unspecified; J96.22 Acute and chronic respiratory failure with hypercapnia; G47.33 Obstructive sleep apnea (adult) (pediatric); Z99.81 Dependence on supplemental oxygen; R33.8 Other retention of urine; R33.9 Retention of urine, unspecified; D64.9 Anemia, unspecified; N40.1 Benign prostatic hyperplasia with lower urinary tract symptoms; Z20.822 Contact with and (suspected) exposure to COVID-19; H54.7 Unspecified visual loss; N18.9 Chronic kidney disease, unspecified; I12.9 Hypertensive chronic kidney disease with stage 1 through stage 4 chronic kidney disease, or unspecified chronic kidney disease; Z43.6 Encounter for attention to other artificial openings of urinary tract; E11.22 Type 2 diabetes mellitus with diabetic chronic kidney disease; F32.9 Major depressive disorder, single episode, unspecified; F17.210 Nicotine dependence, cigarettes, uncomplicated; D63.1 Anemia in chronic kidney disease; Z90.49 Acquired absence of other specified parts of digestive tract; Z98.84 Bariatric surgery status; Z79.899 Other long term (current) drug therapy
CPT/HCPCS: 36415; 36600; 51702; 71045; 80053; 82803; 84484; 85025; 93005; 94640; 96374; 99285; J2930; U0002; 80048; 81001; 83036; 83735; 87086; 87088; 87186; 94660; 94760; 94761; A9270-GY; J0456; J1650; J7050; J7620-GY

== ENCOUNTER → 2021-04-11 10:17 | Emergency (ER) | payer MEDICARE, MEDICAID | END | disposition left against medical advice (07) | LOC: JD.ED 10:17 | DX: Z53.21 Procedure and treatment not carried out due to patient leaving prior to being seen by health care provider (principal) ==

== ENCOUNTER 2021-04-17 19:07 | Emergency (ER) | payer MEDICARE, MEDICAID ==
[2021-04-17] MEDS ORDERED: Lidocaine 2% Jelly 10 ML Urojet ONE (19:58)
--- NOTE | 2021-04-17 20:03 | EDM.PDOC ---
ED HPI GENERAL MEDICAL PROBLEM - General Chief Complaint: Genitourinary Problem Stated Complaint: CATHETER NOT WORKING Time Seen by Provider: 04/17/21 19:49 Source of Information: Reports: Patient, RN Notes Reviewed History Limitations: Reports: No Limitations - History of Present Illness INITIAL COMMENTS - FREE TEXT/NARRATIVE: Patient is a 76-year-old male who presents to the ER for evaluation of his Ramos catheter not working. Patient states that he had surgery in December 2020, and has had neurogenic bladder dysfunction since then. He has had a catheter in because he was not able to urinate after surgery. He has had multiple issues with different catheters, and today he had some issues with the catheter was not draining, and he felt his abdomen was quite full. Triage nurse did troubleshoot this initially, and there is some drainage however it does seem to not be draining appropriately so we will go ahead and change his Ramos catheter for him. Not having any dysuria, frequency or urgency type feelings. No fevers or chills, cough or shortness of breath. Patient notes that he was vaccinated for COVID-19 but was curious to see if he had had COVID-19 so was requesting antibody testing if possible. Bladder Pain Score (Numeric/FACES): 10 - Related Data Allergies Allergy/AdvReac Type Severity Reaction Status Date / Time No Known Allergies Allergy Verified 04/04/21 16:41 Home Meds: Home Meds Tamsulosin [Flomax] 0.4 mg PO DAILY 07/28/19 [History] buPROPion [Wellbutrin SR] 150 mg PO BID 12/29/20 [History] oxyCODONE 5 mg PO QID PRN 01/07/21 [History] Finasteride [Proscar] 5 mg PO DAILY 04/04/21 [History] Acetaminophen 500 mg PO Q8H PRN 04/05/21 [History] Albuterol Sulfate [Albuterol Sulfate HFA] 2 puff INH Q4H PRN 04/05/21 [History] Calcium Carbonate/Vitamin D3 [Calcium 600-Vit D3 500 Softgel] 1 tab PO DAILY 04/05/21 [History] Docusate Sodium 100 mg PO DAILY 04/05/21 [History] Fluticasone/Vilanterol [Breo Ellipta 100-25 MCG Inhalation Kit] 1 puff INH DAILY 04/05/21 [History] Furosemide [Lasix] 40 mg PO DAILY 04/05/21 [History] Lactobacillus Acidophilus [Probiotic Acidophilus] 1 cap PO DAILY 04/05/21 [History] Metoprolol Tartrate 25 mg PO BID 04/05/21 [History] Phytonadione [Vitamin K] 100 mcg PO DAILY 04/05/21 [History] Potassium Chloride [Klor-Con 10] 10 meq PO BID 04/05/21 [History] Pramipexole Di-HCl [Mirapex] 1 mg PO BID 04/05/21 [History] Zolpidem [Ambien] 5 mg PO BEDTIME PRN 04/05/21 [History] atorvaSTATin Calcium [Lipitor] 20 mg PO DAILY 04/05/21 [History] rOPINIRole [Requip] 0.5 mg PO BID 04/05/21 [History] Azithromycin 500 mg PO DAILY #2 tablet 04/07/21 [Rx] methylPREDNISolone [Medrol Dose Pack] 4 mg PO ASDIRECTED #1 dospk 04/07/21 [Rx] Past Medical History HEENT History: Reports: Impaired Vision Cardiovascular History: Reports: Hypertension Respiratory History: Reports: COPD, Sleep Apnea Gastrointestinal History: Reports: Colon Polyp Genitourinary History: Reports: BPH, Chronic Renal Insuffiency, Retention, Urinary Musculoskeletal History: Reports: Fracture Neurological History: Reports: Head Trauma Other Neuro History: traumatic brain bleed Psychiatric History: Reports: Depression Endocrine/Metabolic History: Reports: Diabetes, Type II, Obesity/BMI 30+ Hematologic History: Reports: Anemia Immunologic History: Reports: None Oncologic (Cancer) History: Reports: None Dermatologic History: Reports: None - Infectious Disease History Infectious Disease History: Reports: Chicken Pox, Measles, Mumps - Past Surgical History HEENT Surgical History: Reports: Eye Surgery Other HEENT Surgeries/Procedures: tightened up bottom lids, wears glasses Cardiovascular Surgical History: Reports: None Respiratory Surgical History: Reports: None GI Surgical History: Reports: Appendectomy, Bariatric Procedure, Colonoscopy Neurological Surgical History: Reports: C-Spine, Lumbar Spine Musculoskeletal Surgical History: Reports: Other (See Below) Other Musculoskeletal Surgeries/Procedures:: neck and back surgery Social & Family History - Family History Family Medical History: No Pertinent Family History - Caffeine Use Caffeine Use: Reports: Energy Drinks Other Caffeine Use: couple cans of monster energy drinks a day Caffeine Use Comment: very rarely - Living Situation & Occupation Living situation: Reports: , Alone Occupation: Retired ED ROS GENERAL - Review of Systems Review Of Systems: Comprehensive ROS is negative, except as noted in HPI. ED EXAM, RENAL/ - Physical Exam Exam: See Below Exam Limited By: No Limitations General Appearance: Alert, WD/WN, No Apparent Distress Respiratory/Chest: No Respiratory Distress, Lungs Clear, Normal Breath Sounds, No Accessory Muscle Use, Chest Non-Tender Cardiovascular: Normal Peripheral Pulses, Regular Rate, Rhythm, No Edema GI/Abdominal: Normal Bowel Sounds, Soft, No Distention, No Mass, Tender (slight generalized) Extremities: Normal Inspection, Normal Capillary Refill Neurological: Alert, Oriented, Normal Cognition, No Motor/Sensory Deficits Psychiatric: Normal Affect, Normal Mood Skin Exam: Warm, Dry, Intact, Normal Color, No Rash Course - Orders/Labs/Meds Orders: Active Orders 24 hr Category Date Time Status Ramos Catheter Insertion [Insert Urinary Catheter] [OM. Care 04/17/21 20:00 Ordered PC] ONETIME Urinary Catheter Assessment [RC] ASDIRECTED Care 04/17/21 19:59 Ordered - Re-Assessments/Exams Free Text/Narrative Re-Assessment/Exam: 04/17/21 20:02 Patient presents to the ER for the evaluation of his Ramos catheter problems. We will go ahead and replace his Ramos catheter at this time. I did check on the Covid antibody testing, and this will be a state send out test. I do believe would be best for him to have this done through his primary care provider. I will relay this information to the patient. Departure - Departure Time of Disposition: 20:02 Disposition: Home, Self-Care 01 Condition: Good Clinical Impression: Ramos catheter problem Qualifiers: Encounter type: initial encounter Qualified Code(s): T83.9XXA - Unspecified complication of genitourinary prosthetic device, implant and graft, initial encounter - Discharge Information *PRESCRIPTION DRUG MONITORING PROGRAM REVIEWED*: No *COPY OF PRESCRIPTION DRUG MONITORING REPORT IN PATIENT CHITO: No Instructions: Indwelling Urinary Catheter Care, Adult Referrals: Radha Zamora MD [Primary Care Provider] - Additional Instructions: You were evaluated in the ER today for your Ramos catheter problem. Your catheter was placed at today's visit, and this did start draining appropriately. Recommend you follow-up with your regular care provider for Covid antibody testing, as we do not have ready access to do this through the ER. Please follow-up with your regular care provider as well for upcoming urology follow-up. You note that you do have an appointment sometime in May for ongoing management. Do not hesitate to return to the ER at any time if symptoms change or worsen. Sepsis Event Note (ED) - Evaluation Sepsis Screening Result: No Definite Risk - My Orders Last 24 Hours: My Active Orders 04/17/21 19:59 Urinary Catheter Assessment [RC] ASDIRECTED 04/17/21 20:00 Ramos Catheter Insertion [Insert Urinary Catheter] [OM.PC] ONETIME - Assessment/Plan Last 24 Hours: My Active Orders 04/17/21 19:59 Urinary Catheter Assessment [RC] ASDIRECTED 04/17/21 20:00 Ramos Catheter Insertion [Insert Urinary Catheter] [OM.PC] ONETIME
== END 2021-04-17 20:47 | disposition home or self-care (01) ==
LOC: JD.ED 19:07
DX: T83.091A Other mechanical complication of indwelling urethral catheter, initial encounter (principal); I12.9 Hypertensive chronic kidney disease with stage 1 through stage 4 chronic kidney disease, or unspecified chronic kidney disease; J44.9 Chronic obstructive pulmonary disease, unspecified; E11.22 Type 2 diabetes mellitus with diabetic chronic kidney disease; N18.9 Chronic kidney disease, unspecified; E66.9 Obesity, unspecified; Z68.30 Body mass index [BMI] 30.0-30.9, adult; Z79.899 Other long term (current) drug therapy
CPT/HCPCS: 51702; 99283-25

== ENCOUNTER 2021-05-06 14:29 | Emergency (ER) | payer MEDICARE, MEDICAID ==
--- NOTE | 2021-05-06 16:09 | EDM.PDOC ---
ED HPI GENERAL MEDICAL PROBLEM - General Chief Complaint: Genitourinary Problem Stated Complaint: CATHETER ISSUE Time Seen by Provider: 05/06/21 16:05 - History of Present Illness INITIAL COMMENTS - FREE TEXT/NARRATIVE: 76-year-old male presents the emergency room with urinary retention. The patient usually has a indwelling Ramos catheter however it kept leaking around the sides this last evening and the patient took it out. He was not have any symptoms prior to this. He was sent here by the clinic as they will not put catheters in him for some reason. He has not had any fevers or chills or other complaints however at this point is been quite a long time since has been able to void and he is a little distended and uncomfortable with this. She has had problems since his neck surgery and December. He supposed to see urology this next month to figure out a more long-term plan. Bladder Pain Score (Numeric/FACES): 9 - Related Data Allergies Allergy/AdvReac Type Severity Reaction Status Date / Time No Known Allergies Allergy Verified 04/04/21 16:41 Home Meds: Home Meds Tamsulosin [Flomax] 0.4 mg PO DAILY 07/28/19 [History] buPROPion [Wellbutrin SR] 150 mg PO BID 12/29/20 [History] oxyCODONE 5 mg PO QID PRN 01/07/21 [History] Finasteride [Proscar] 5 mg PO DAILY 04/04/21 [History] Acetaminophen 500 mg PO Q8H PRN 04/05/21 [History] Albuterol Sulfate [Albuterol Sulfate HFA] 2 puff INH Q4H PRN 04/05/21 [History] Calcium Carbonate/Vitamin D3 [Calcium 600-Vit D3 500 Softgel] 1 tab PO DAILY 04/05/21 [History] Docusate Sodium 100 mg PO DAILY 04/05/21 [History] Fluticasone/Vilanterol [Breo Ellipta 100-25 MCG Inhalation Kit] 1 puff INH DAILY 04/05/21 [History] Furosemide [Lasix] 40 mg PO DAILY 04/05/21 [History] Lactobacillus Acidophilus [Probiotic Acidophilus] 1 cap PO DAILY 04/05/21 [History] Metoprolol Tartrate 25 mg PO BID 04/05/21 [History] Phytonadione [Vitamin K] 100 mcg PO DAILY 04/05/21 [History] Potassium Chloride [Klor-Con 10] 10 meq PO BID 04/05/21 [History] Pramipexole Di-HCl [Mirapex] 1 mg PO BID 04/05/21 [History] Zolpidem [Ambien] 5 mg PO BEDTIME PRN 04/05/21 [History] atorvaSTATin Calcium [Lipitor] 20 mg PO DAILY 04/05/21 [History] rOPINIRole [Requip] 0.5 mg PO BID 04/05/21 [History] Azithromycin 500 mg PO DAILY #2 tablet 04/07/21 [Rx] methylPREDNISolone [Medrol Dose Pack] 4 mg PO ASDIRECTED #1 dospk 04/07/21 [Rx] Cefdinir 300 mg PO BID #14 capsule 05/06/21 [Rx] Past Medical History HEENT History: Reports: Impaired Vision Cardiovascular History: Reports: Hypertension Respiratory History: Reports: COPD, Sleep Apnea Gastrointestinal History: Reports: Colon Polyp Genitourinary History: Reports: BPH, Chronic Renal Insuffiency, Retention, Urinary Musculoskeletal History: Reports: Fracture Neurological History: Reports: Head Trauma Other Neuro History: traumatic brain bleed Psychiatric History: Reports: Depression Endocrine/Metabolic History: Reports: Diabetes, Type II, Obesity/BMI 30+ Hematologic History: Reports: Anemia Immunologic History: Reports: None Oncologic (Cancer) History: Reports: None Dermatologic History: Reports: None - Infectious Disease History Infectious Disease History: Reports: Chicken Pox, Measles, Mumps - Past Surgical History HEENT Surgical History: Reports: Eye Surgery Other HEENT Surgeries/Procedures: tightened up bottom lids, wears glasses Cardiovascular Surgical History: Reports: None Respiratory Surgical History: Reports: None GI Surgical History: Reports: Appendectomy, Bariatric Procedure, Colonoscopy Neurological Surgical History: Reports: C-Spine, Lumbar Spine Musculoskeletal Surgical History: Reports: Other (See Below) Other Musculoskeletal Surgeries/Procedures:: neck and back surgery Social & Family History - Family History Family Medical History: No Pertinent Family History - Tobacco Use Tobacco Use Status *Q: Former Tobacco User Used Tobacco, but Quit: Yes Month/Year Tobacco Last Used: 5 weeks - Caffeine Use Caffeine Use: Reports: Energy Drinks Other Caffeine Use: couple cans of monster energy drinks a day Caffeine Use Comment: very rarely - Recreational Drug Use Recreational Drug Use: No - Living Situation & Occupation Living situation: Reports: , Alone Occupation: Retired ED ROS GENERAL - Review of Systems Review Of Systems: See Below Constitutional: Reports: No Symptoms Respiratory: Reports: No Symptoms Cardiovascular: Reports: No Symptoms GI/Abdominal: Reports: Other (He is doing oh okay but he is developing some bladder distention). Denies: Abdominal Pain, Constipation, Diarrhea, Nausea, Vomiting : Reports: Urinary Retention ED EXAM, GENERAL - Physical Exam Exam: See Below Exam Limited By: No Limitations General Appearance: Alert, No Apparent Distress Head: Atraumatic, Normocephalic Neck: Normal Inspection, Supple, Non-Tender, Full Range of Motion Respiratory/Chest: No Respiratory Distress, Lungs Clear, Normal Breath Sounds Cardiovascular: Regular Rate, Rhythm, No Edema, No Murmur GI/Abdominal: Normal Bowel Sounds, Soft, Other (He has some lower abdominal distention most likely from his bladder) Back Exam: Normal Inspection. No: CVA Tenderness (L), CVA Tenderness (R) Course - Vital Signs Last Recorded V/S: Last Vital Signs Temp 36.2 C 05/06/21 15:19 Pulse 70 05/06/21 15:19 Resp 20 05/06/21 15:19 BP 148/83 H 05/06/21 15:19 Pulse Ox 90 L 05/06/21 15:19 - Orders/Labs/Meds Orders: Active Orders 24 hr Category Date Time Status Insert Ramos Catheter [Insert Urinary Catheter] [OM.PC] Care 05/06/21 16:00 Ordered Q24H Urinary Catheter Assessment [RC] ASDIRECTED Care 05/06/21 15:46 Active CULTURE URINE [MREF] Stat Lab 05/06/21 16:09 Received Labs: Laboratory Tests 05/06/21 Range/Units 16:09 Urine Color Light yellow (Yellow) Urine Appearance Slt cloudy H (Clear) Urine pH 8.0 (5.0-8.0) Ur Specific [place] 1.020 (1.005-1.030) Urine Protein Negative (Negative) Urine Glucose (UA) Negative (Negative) Urine Ketones Negative (Negative) Urine Occult Blood 2+ H (Negative) Urine Nitrite Negative (Negative) Urine Bilirubin Negative (Negative) Urine Urobilinogen 0.2 (0.2-1.0) Ur Leukocyte Esterase 3+ H (Negative) Urine RBC 20-30 H (0-5) /hpf Urine WBC 10-20 H (0-5) /hpf Ur Epithelial Cells Not seen (0-5) /hpf Urine Bacteria Few (FEW) /hpf Urine Mucus Rare (FEW) /hpf - Re-Assessments/Exams Free Text/Narrative Re-Assessment/Exam: 05/06/21 16:08 Patient had a new catheter placed by nursing and feels much better awaiting UA at this time 05/06/21 17:14 Is suggestive of an infectious process developing however he has been catheterized for the most part since December. Until we know what his long-term plans are with the catheter in with urology I will go ahead and treat at this time. The end of March he grew out E. coli sensitive to just about everything we will put him on cefdinir for 7 days. Viewed his labs from back in March and is creatinine clearance for medications always been above 39. Cefdinir does not require renal changes unless it is less than 30 Departure - Departure Time of Disposition: 17:15 Disposition: Home, Self-Care 01 Clinical Impression: Ramos catheter in place, Urinary retention, Urinary tract infection - Discharge Information Referrals: Pratik Shepherd MD [Primary Care Provider] - Forms: ED Department Discharge Additional Instructions: Return to the emergency room with any questions problems or worsening symptoms. You have been started on cefdinir, this is an antibiotic take 1 twice daily until all gone. This was sent electronically to the clinic pharmacy. Sepsis Event Note (ED) - Focused Exam Vital Signs: Vital Signs Temp Pulse Resp BP Pulse Ox 05/06/21 15:19 36.2 C 70 20 148/83 H 90 L - My Orders Last 24 Hours: My Active Orders 05/06/21 15:46 Urinary Catheter Assessment [RC] ASDIRECTED 05/06/21 16:00 Insert Ramos Catheter [Insert Urinary Catheter] [OM.PC] Q24H 05/06/21 16:09 CULTURE URINE [MREF] Stat - Assessment/Plan Last 24 Hours: My Active Orders 05/06/21 15:46 Urinary Catheter Assessment [RC] ASDIRECTED 05/06/21 16:00 Insert Ramos Catheter [Insert Urinary Catheter] [OM.PC] Q24H 05/06/21 16:09 CULTURE URINE [MREF] Stat
== END 2021-05-06 17:43 | disposition home or self-care (01) ==
LOC: JD.ED 14:29
DX: R33.9 Retention of urine, unspecified (principal); N39.0 Urinary tract infection, site not specified; J44.9 Chronic obstructive pulmonary disease, unspecified; I10 Essential (primary) hypertension; E11.9 Type 2 diabetes mellitus without complications; E66.9 Obesity, unspecified; Z46.6 Encounter for fitting and adjustment of urinary device; Z68.36 Body mass index [BMI] 36.0-36.9, adult; Z79.84 Long term (current) use of oral hypoglycemic drugs; Z79.899 Other long term (current) drug therapy; Z87.891 Personal history of nicotine dependence
CPT/HCPCS: 51702; 81001; 87086; 87088; 87186; 99283-25

== ENCOUNTER 2021-10-18 18:15 | Emergency (ER) | payer MEDICAID, MEDICARE | END 2021-10-18 21:15 | disposition home or self-care (01) | LOC: JD.ED 18:15 | DX: G89.29 Other chronic pain (principal); M54.2 Cervicalgia; I12.9 Hypertensive chronic kidney disease with stage 1 through stage 4 chronic kidney disease, or unspecified chronic kidney disease; E11.22 Type 2 diabetes mellitus with diabetic chronic kidney disease; N18.9 Chronic kidney disease, unspecified; J44.9 Chronic obstructive pulmonary disease, unspecified; N40.0 Benign prostatic hyperplasia without lower urinary tract symptoms; E66.9 Obesity, unspecified; Z68.20 Body mass index [BMI] 20.0-20.9, adult; Z79.899 Other long term (current) drug therapy; Z87.891 Personal history of nicotine dependence; Z98.1 Arthrodesis status | CPT/HCPCS: 72040; 72040-26; 99283; 99284 ==

== ENCOUNTER 2021-11-02 22:25 | Emergency (ER) | payer MEDICARE ==
[2021-11-02 23:32] LABS: CORONAVIRUS COVID-19 NAA NEGATIVE (NEGATIVE)
[2021-11-02] MEDS ORDERED: Furosemide 40 MG/4 ML VIAL IVPUSH ONE (23:48)
[2021-11-03] MEDS ORDERED: Zolpidem 5 MG Tab PO ONE (04:14)
[2021-11-03] MEDS ORDERED: Propofol 200 MG/20 ML SDV IVPUSH STA (06:58)
[2021-11-03] MEDS ORDERED: Rocuronium 50 MG/5 ML Vial IVPUSH STA (06:59)
[2021-11-03] MEDS ORDERED: propofoL 100 ML IV SCH ×2 (07:00→09:27)
[2021-11-03] MEDS ORDERED: Rocuronium 50 MG/5 ML Vial IVPUSH ONE (08:01)
[2021-11-03] MEDS ORDERED: Midazolam 5 MG/ML 10 ML MDV IV ONE (08:01)
[2021-11-03] MEDS ORDERED: Sodium Bicarbonate 8.4% 50 MEQ/50 ML Syringe IVPUSH ONE (08:32)
== END 2021-11-03 10:15 ==
LOC: JD.ED 22:25
DX: J96.01 Acute respiratory failure with hypoxia (principal); I12.9 Hypertensive chronic kidney disease with stage 1 through stage 4 chronic kidney disease, or unspecified chronic kidney disease; N18.9 Chronic kidney disease, unspecified; I50.9 Heart failure, unspecified; E11.22 Type 2 diabetes mellitus with diabetic chronic kidney disease; J44.9 Chronic obstructive pulmonary disease, unspecified; F32.A Depression, unspecified; E66.9 Obesity, unspecified; Z20.822 Contact with and (suspected) exposure to COVID-19
CPT/HCPCS: 0240U; 31500; 36415; 36600; 43752; 51702; 71045; 71270; 74178; 80048; 80053; 82803; 83605; 83735; 83880; 84484; 85025; 85379; 85610; 85730; 87040; 93005; 94660; 96374; 96375; 99285; A9270; J1940; J2250; J2704; 93010

== ENCOUNTER 2021-11-21 16:49 | Emergency (ER) | payer MEDICARE ==
[2021-11-21] MEDS ORDERED: Sodium Chloride 0.9% 10 ML Syringe FLUSH PRN (17:30)
[2021-11-21] MEDS ORDERED: methylPREDNISolone Sodium Succinate 125 MG/2 ML SDV IVPUSH ONE (17:33)
[2021-11-21] MEDS ORDERED: Magnesium Sulfate/Water 2 GM in Premix Bag 1 BAG IV ONE (17:34)
[2021-11-21] MEDS ORDERED: Albuterol/Ipratropium 3.0-0.5 MG/3 ML Neb Soln NEB ONE (17:35)
[2021-11-21] MEDS ORDERED: Succinylcholine 200 MG/10 ML MDV IV ONE (18:23)
[2021-11-21] MEDS ORDERED: Etomidate 2 MG/ML 20 ML SDV IVPUSH ONE (18:23)
[2021-11-21] MEDS ORDERED: propofoL 100 ML IV SCH (18:30)
[2021-11-21] MEDS ORDERED: cefTRIAXone 2 GM in Sodium Chloride 0.9% 100 ML IV ONE (18:55)
[2021-11-21] MEDS ORDERED: Rocuronium 50 MG/5 ML Vial IVPUSH ONE (19:11)
[2021-11-21] MEDS ORDERED: Midazolam 1 MG/ML 5 ML SDV IVPUSH ONE (19:12)
[2021-11-21] MEDS ORDERED: Sodium Chloride 0.9% 500 ML IV ONE (19:21)
[2021-11-21] MEDS ORDERED: Sodium Chloride 0.9% 1,000 ML IV SCH (20:00)
[2021-11-21 20:27] LABS: CORONAVIRUS COVID-19 NAA NEGATIVE (NEGATIVE)
== END 2021-11-21 20:15 | disposition critical access hospital (66) ==
LOC: JD.ED 16:49
DX: J96.01 Acute respiratory failure with hypoxia (principal); J96.02 Acute respiratory failure with hypercapnia; J44.1 Chronic obstructive pulmonary disease with (acute) exacerbation; I10 Essential (primary) hypertension; E11.9 Type 2 diabetes mellitus without complications; Z90.49 Acquired absence of other specified parts of digestive tract; Z87.891 Personal history of nicotine dependence; Z79.899 Other long term (current) drug therapy; Z20.822 Contact with and (suspected) exposure to COVID-19
CPT/HCPCS: 0241U; 31500; 36415; 36600; 43752; 51702; 71045; 80053; 81001; 82803; 83605; 83735; 84484; 85025; 87040; 93005; 94640; 94660; 96365; 96367; 96375; 99285; J0696; J2250; J2704; J2930; J3475; J3490; J7030; 93010; J7620-GY

== ENCOUNTER 2022-07-08 15:03 | Emergency (ER) | payer MEDICARE, MEDICAID ==
[2022-07-08] MEDS ORDERED: Sodium Chloride 0.9% 10 ML Syringe FLUSH PRN (15:54)
[2022-07-08] MEDS ORDERED: Albuterol/Ipratropium 3.0-0.5 MG/3 ML Neb Soln NEB ONE (16:53)
[2022-07-08] MEDS ORDERED: Furosemide 40 MG/4 ML VIAL IVPUSH ONE (16:54)
[2022-07-08 17:10] LABS: ESTIMATED GFR 36 mL/min (>60)
[2022-07-08] MEDS ORDERED: predniSONE 20 MG Tab PO ONE (17:53)
== END 2022-07-08 18:05 | disposition home or self-care (01) ==
LOC: JD.ED 15:03
DX: J44.9 Chronic obstructive pulmonary disease, unspecified (principal); I11.0 Hypertensive heart disease with heart failure; I50.9 Heart failure, unspecified; E11.9 Type 2 diabetes mellitus without complications; E66.9 Obesity, unspecified; Z68.37 Body mass index [BMI] 37.0-37.9, adult; Z79.899 Other long term (current) drug therapy; Z87.891 Personal history of nicotine dependence
CPT/HCPCS: 36415; 71250; 71250-26; 74176; 74176-26; 80053; 81001; 83880; 84484; 85025; 86140; 93005; 94640; 96374; 99285-25; J1940; J3490; J7512; J7620-GY

== ENCOUNTER 2022-07-29 09:36 | Day surgery (SDC) | payer MEDICAID, MEDICARE ==
[~2022-07-29 09:36] MED LIST: Lactated Ringers 1,000 ML IV SCH; Lidocaine 1%/Sod Bicarbonate in NS 8.4% 1 ML Syringe IDERM PRN; Sodium Chloride 0.9% 10 ML Syringe FLUSH PRN; Sodium Chloride 0.9% 10 ML Syringe FLUSH SCH
[2022-07-29] MEDS ORDERED: Albuterol/Ipratropium 3.0-0.5 MG/3 ML Neb Soln NEB ONE (10:35)
[2022-07-29] MEDS ORDERED: Ketamine 500 mg/10 ML MDV ONE (11:21)
[2022-07-29] MEDS ORDERED: Midazolam 1 MG/ML 2 ML SDV ONE (11:21)
[2022-07-29] MEDS ORDERED: Propofol 200 MG/20 ML SDV ONE ×2 (11:21→12:14)
[2022-07-29] MEDS ORDERED: ePHEDrine 50 MG/ML SDV ONE (11:32)
[2022-07-29] MEDS ORDERED: Lidocaine 1% 2 ML ONE (12:07)
== END 2022-07-29 13:52 | disposition home or self-care (01) ==
LOC: JD.SDS 09:36
PROVIDERS: ATTEND Surgery
DX: D12.3 Benign neoplasm of transverse colon (principal); K52.9 Noninfective gastroenteritis and colitis, unspecified; K44.9 Diaphragmatic hernia without obstruction or gangrene; K22.81 Esophageal polyp; K57.30 Diverticulosis of large intestine without perforation or abscess without bleeding; K64.8 Other hemorrhoids; I11.0 Hypertensive heart disease with heart failure; I50.30 Unspecified diastolic (congestive) heart failure; E78.00 Pure hypercholesterolemia, unspecified; J44.9 Chronic obstructive pulmonary disease, unspecified; G47.33 Obstructive sleep apnea (adult) (pediatric); I25.10 Atherosclerotic heart disease of native coronary artery without angina pectoris; E11.9 Type 2 diabetes mellitus without complications; E66.9 Obesity, unspecified; D64.9 Anemia, unspecified; N40.0 Benign prostatic hyperplasia without lower urinary tract symptoms; I27.20 Pulmonary hypertension, unspecified; F32.A Depression, unspecified; Z68.31 Body mass index [BMI] 31.0-31.9, adult; Z98.890 Other specified postprocedural states; Z79.899 Other long term (current) drug therapy; Z99.81 Dependence on supplemental oxygen; Z98.84 Bariatric surgery status; Z90.49 Acquired absence of other specified parts of digestive tract; Z87.891 Personal history of nicotine dependence; Z98.1 Arthrodesis status
CPT/HCPCS: 36415; 43239; 45380; 80053; J2250; J2704; J3490; J7120; 88305; J7620-GY

== ENCOUNTER 2022-09-25 11:59 | Emergency (ER) | payer MEDICARE ==
[2022-09-25 13:17] LABS: ESTIMATED GFR 22 mL/min (>60)
[2022-09-25] MEDS ORDERED: Furosemide 40 MG/4 ML VIAL IVPUSH ONE (13:35)
[2022-09-25 13:56] LABS: CORONAVIRUS COVID-19 NAA NEGATIVE (NEGATIVE)
[2022-09-25] MEDS ORDERED: Albuterol/Ipratropium 3.0-0.5 MG/3 ML Neb Soln NEB ONE (14:12)
== END 2022-09-25 15:13 | disposition home or self-care (01) ==
LOC: JD.ED 11:59
DX: R60.1 Generalized edema (principal); R06.02 Shortness of breath; N17.9 Acute kidney failure, unspecified; I25.10 Atherosclerotic heart disease of native coronary artery without angina pectoris; I12.9 Hypertensive chronic kidney disease with stage 1 through stage 4 chronic kidney disease, or unspecified chronic kidney disease; E11.22 Type 2 diabetes mellitus with diabetic chronic kidney disease; N18.9 Chronic kidney disease, unspecified; D63.1 Anemia in chronic kidney disease; J44.9 Chronic obstructive pulmonary disease, unspecified; N40.0 Benign prostatic hyperplasia without lower urinary tract symptoms; E66.9 Obesity, unspecified; Z20.822 Contact with and (suspected) exposure to COVID-19; Z68.33 Body mass index [BMI] 33.0-33.9, adult
CPT/HCPCS: 0241U; 36415; 71045; 74176; 80053; 81001; 83735; 83880; 84484; 85025; 85610; 85730; 86140; 93005; 94640; 96374; 99285; J1940; J7620-GY